=== PATIENT | male | born 1945 | race Caucasian/White ===

== ENCOUNTER 2022-02-09 16:10 | Emergency (ER) | payer MEDICARE, OTHER, SELFPAY ==
[2022-02-09 16:25] VITALS: BP 115/74; PULSE 106; RESP 22; TEMP 38.4; O2SAT 94; BMI 32.3
--- NOTE | 2022-02-09 17:06 | CRLHL7_ITS ---
For Patients: As a result of the Century Cures Act, medical imaging exams and procedure reports are released immediately into your electronic medical record. You may view this report before your referring provider. If you have questions, please contact your health care provider. INDICATION: PNA, CHEST PAIN TECHNIQUE: Chest 1 view. COMPARISON: 08/28/21 FINDINGS: Cardiovascular and mediastinum: Heart size and vasculature are normal in caliber and appearance. Mediastinum is within normal limits. Lungs and pleural space: Lungs are clear. No sign of infiltrate or mass. No sign of pleural effusion. No pneumothorax. Bones and soft tissues: No significant findings. IMPRESSION: Unremarkable chest. Dictated by: Bethel Yang MD @ 02/09/2022 17:48:06 (Electronically Signed)
[2022-02-09 17:07] VITALS: TEMP 36.6
--- NOTE | 2022-02-09 17:08 | ED.GENADULT ---
HPI - General Adult General Time Seen by Provider: 17:09 Date Seen: 02/09/22 Chief complaint: Weakness Stated complaint: Weakness and muscle tightness Time Seen by Provider: 02/09/22 16:35 Source: patient Mode of arrival: ambulatory History of Present Illness HPI narrative: Rai is a 76-year-old male past medical history includes hypertension presents emerged department with with generalized weakness. Patient states over the last few days he has had increasing worsening cough, shortness of breath and weakness, he has had increased myalgias and arthralgias, denies any headache. Cough has been productive yellow tinged sputum, he has had associated fevers at started today, states that she was exposed to a co-worker with COVID last , she tested negative on Monday. Patient has not had a COVID test at this time. He is vaccinated against covid. He has associated nausea but no vomiting, he denies any chest pain or abdominal pain, he has had decreased urinary output. Patient has not had much for oral intake, only crackers today, he feels very unsteady on his feet like he is going to fall over, he denies any recent falls. Feels very shaky. Of note, patient does drink about 6 beers per day and a few glasses of wine. Patient had 2 beers yesterday. He did have some alcohol withdrawals post surgery in the past, no history of any alcohol withdrawal seizures. Due to worsening symptoms he presents emerged department. Related Data Previous Rx's Medication Instructions Recorded doxycycline monohydrate 100 mg 100 mg PO BID 10 days #20 caps 02/09/22 capsule prednisone 20 mg tablet 40 mg PO DAILY 4 days #8 tabs 02/09/22 Review of Systems Status of ROS: Reports: 10 or more systems reviewed and unremarkable except as noted in History and below [facility] Social History Smoking Status: Former smoker How often do you have a drink containing alcohol: 4 or more times a week How many standard drinks containing alcohol do you have on a typical day: 3 or 4 How often do you have six or more drinks on one occasion: Never AUDIT-C Alcohol total score: 5 Non-prescribed substance use: denies use Exam Narrative: Exam Narrative: General: No obvious distress sitting comfortably, nontoxic in appearance HEENT: Oropharynx is clear and moist, pupils equal round reactive to light, extraocular muscles intact Neck: No JVD, supple, full range of motion Lungs: Diminished breath sounds throughout, mild expiratory wheezes, mild bibasilar crackles Heart: Sinus tachycardia Abdomen: Soft nontender, obese, bowel sounds present Muscle skeletal: +5 strength upper lower extremities Neuro: Unable to evaluate gait, GCS 15, alert awake and oriented x3 Const: Vital Signs, click to edit/add: Vital Signs - 24 hr 02/09/22 16:25 Temperature 101.1 F H Pulse Rate [Pulse Oximeter] 106 H Respiratory Rate 22 Blood Pressure [Le ft Upper Arm] 115/74 Pulse Oximetry 94 Oxygen Delivery Me thod Room Air Course Course Hospital Course: 5:00 pm: AIDET performed, vitals show tachycardia 106 as well as fever 101. Workup will include IV peripheral, 0.9 normal saline bolus, patient does not have history of heart failure, will obtain a CBC, procalcitonin, CMP, lactate and blood cultures x2, XR chest portable one view, suspect pneumonia versus COVID. He will get a DuoNeb and 10 mg IV Decadron. Reevaluation(s) Reevaluation #1: Patient is feeling better after above care given, still has tremors, vitals have been stable, imaging showed no acute cardiopulmonary process, SARs/influenza/RSV were negative, CBC showed a leukocytosis of 11.38, hemoglobin 11.5, sodium mildly low at 130, AST mildly elevated, likely secondary to his EtOH use, NT proBNP elevated at 37 40, patient has no history of any heart failure, likely need echocardiogram an outpatient basis, procalcitonin 0.63, plan to give him 5 mg IV Valium for his tremors. Time: 19:49 Vital Signs Vital signs: Initial Vital Signs Temperature 101.1 F H 02/09/22 16:25 Temperature Source Temporal Artery Scan 02/09/22 16:25 Pulse Rate 106 H 02/09/22 16:25 Respiratory Rate 22 02/09/22 16:25 Blood Pressure 115/74 02/09/22 16:25 Blood Pressure Mean 87 02/09/22 16:25 Blood Pressure Position Sitting 02/09/22 16:25 Pulse Oximetry 94 02/09/22 16:25 Oxygen Delivery Method 02/09/22 16:25 Vital Signs Temperature 101.1 F H 02/09/22 16:25 Pulse Rate 106 H 02/09/22 16:25 Respiratory Rate 22 02/09/22 16:25 Blood Pressure 115/74 02/09/22 16:25 Pulse Oximetry 94 02/09/22 16:25 Oxygen Delivery Method 02/09/22 16:25 Temperature 98 F 02/09/22 17:07 Pulse Rate 92 02/09/22 21:00 Respiratory Rate 16 02/09/22 21:00 Blood Pressure 177/86 H 02/09/22 21:00 Pulse Oximetry 95 02/09/22 21:00 Oxygen Delivery Method 02/09/22 21:00 Medical Decision Making Lab Data Labs: Lab Results 02/09/22 02/09/22 02/09/22 Range/Units 16:52 17:34 17:34 WBC 11.38 H (4.50-11.00) K/uL RBC 3.51 L (4.30-5.90) m/uL Hgb 11.5 L (13.5-17.5) gm/dL Hct 33.7 L (37.0-53.0) % MCV 96 (80-100) fL MCH 33 (26-34) pg MCHC 34 (32-36) gm/dL RDW Coeff of Eloy 12.7 (11.5-15.5) % Plt Count 151 (140-440) K/uL Neut % (Auto) 89.8 H (42.0-72.0) % Lymph % (Auto) 3.3 L (20-44) % Bosque % (Auto) 6.2 (0.0-11.0) % Eos % (Auto) 0.0 (0.0-7.0) % Baso % (Auto) 0.1 (0.0-3.0) % Neut # (Auto) 10.20 H (1.7-7.0) K/uL Lymph # (Auto) 0.40 L (0.90-2.90) K/uL Bosque # (Auto) 0.70 (0.00-0.90) K/UL Eos # (Auto) 0.00 (0.00-0.50) K/uL Baso # (Auto) 0.00 (0.00-0.30) K/uL Abs Immat Gran (auto) 0.07 (0.00-0.30) K/uL Sodium 128 L (135-149) mmol/L Potassium 4.8 (3.6-5.1) mmol/L Chloride 95 L (96-114) mmol/L Carbon Dioxide 23 (20-32) mmol/L BUN 24 (7-30) mg/dL Creatinine 1.2 (0.5-1.5) mg/dL Estimated Creat Clear 55.76 Estimated GFR 63 ml/min Glucose 98 (60-115) mg/dL Lactate (0.5-1.9) mmol/L Calcium 9.4 (8.4-10.6) mg/dL Total Bilirubin 0.8 (0.1-1.5) mg/dL AST 48 H (12-35) U/L ALT 35 (4-50) U/L Alkaline Phosphatase 103 (40-150) U/L NT-Pro-B Natriuret Pep 3740 H (0-125) PG/mL Total Protein 8.0 (6.0-8.3) g/dL Albumin 4.9 (3.3-5.0) g/dL Procalcitonin 0.63 H (<0.50) ng/mL SARS-CoV-2 (PCR) Negative SARS-CoV-2 (Negative) Influenza Type A (PCR) Negative PCR FLU A (Negative) Influenza Type B (PCR) Negative PCR FLU B (Negative) 02/09/22 Range/Units 17:34 WBC (4.50-11.00) K/uL RBC (4.30-5.90) m/uL Hgb (13.5-17.5) gm/dL Hct (37.0-53.0) % MCV (80-100) fL MCH (26-34) pg MCHC (32-36) gm/dL RDW Coeff of Eloy (11.5-15.5) % Plt Count (140-440) K/uL Neut % (Auto) (42.0-72.0) % Lymph % (Auto) (20-44) % Bosque % (Auto) (0.0-11.0) % Eos % (Auto) (0.0-7.0) % Baso % (Auto) (0.0-3.0) % Neut # (Auto) (1.7-7.0) K/uL Lymph # (Auto) (0.90-2.90) K/uL Bosque # (Auto) (0.00-0.90) K/UL Eos # (Auto) (0.00-0.50) K/uL Baso # (Auto) (0.00-0.30) K/uL Abs Immat Gran (auto) (0.00-0.30) K/uL Sodium (135-149) mmol/L Potassium (3.6-5.1) mmol/L Chloride (96-114) mmol/L Carbon Dioxide (20-32) mmol/L BUN (7-30) mg/dL Creatinine (0.5-1.5) mg/dL Estimated Creat Clear Estimated GFR ml/min Glucose (60-115) mg/dL Lactate 1.2 (0.5-1.9) mmol/L Calcium (8.4-10.6) mg/dL Total Bilirubin (0.1-1.5) mg/dL AST (12-35) U/L ALT (4-50) U/L Alkaline Phosphatase (40-150) U/L NT-Pro-B Natriuret Pep (0-125) PG/mL Total Protein (6.0-8.3) g/dL Albumin (3.3-5.0) g/dL Procalcitonin (<0.50) ng/mL SARS-CoV-2 (PCR) (Negative) Influenza Type A (PCR) (Negative) Influenza Type B (PCR) (Negative) Discharge Plan Discharge Clinical Impression: History of alcohol use, Fever, Generalized weakness, Cough Patient Disposition: Home, Self-Care Condition: Improved Instructions: Fever in Adults (ED), Acute Cough (ED) Additional Instructions: To take doxycycline 100 mg twice daily over the next 7 days, to continue 40 mg oral prednisone once daily over the next 4 days, to continue with his albuterol inhaler 1-2 puffs every 4-6 hours as needed for cough, to follow-up primary care provider over the next 3-5 days for ER followup and recheck, consideration for outpatient echocardiogram. Activity Level: Activity as Tolerated Prescriptions: New doxycycline monohydrate 100 mg capsule 100 mg PO BID 10 Days Qty: 20 0RF prednisone 20 mg tablet 40 mg PO DAILY 4 Days Qty: 8 0RF Follow Up/Referrals: Rai Rosas MD [Primary Care Provider] - Stand Alone Forms: [employer] Info Instructions
--- OUTSIDE RECORDS SUMMARY | 2022-02-09 17:50 | XMS_ITS | Clinical Summary ---
:1945 Author Organization [employer] [facility] Aff[facility] [place] [address] Care Team Providers Name Role Phone Rai Rosas MD Primary Care Provider [phone] Allergies Active Allergy Reactions Severity Noted Date Comments Amlodipine Edema 07/16/2008 Hydrochlorothiazide Nausea Only 07/28/2021 Nausea a nd diarrhea Lisinopril Cough 06/26/2008 Spironolactone Other - Describe In 08/11/2021 Sodium 126, potassium Comment Field 5.3 Medications Medication Sig Dispensed Refills Start Date End Date Status triamcinolone Apply 453 g 0 04/06/2018 Activ e (ARISTOCORT) 0.1 % topically to ointmentIndications: affected Rash area(s) 3 times daily. triamcinolone Apply 85.2 g 1 07/24/2019 Activ e (ARISTOCORT; topically to KENALOG) 0.1 % affected creamIndications: area(s) 2 Rash times daily if needed for Other (Specify). Not to exceed 14 days per episode albuterol HFA Inhale 1-2 1 Each 3 03/31/2020 Acti ve (PRO-AIR) 90 Puffs by mouth mcg/actuation every 4 hours inhalerIndications: if needed. Tobacco abuse fluticasone (50 mcg Inhale 2 1 Bottle 12 10/15/2020 Active per actuation) nasal Sprays to both solution nostrils once (FLONASE)Indications daily. : Allergic rhinitis due to pollen, unspecified seasonality omeprazole Take 1 Capsule 90 capsule. 3 05/03/2021 A ctive (PRILOSEC) 40 mg (40 mg) by Delayed-Release mouth once capsuleIndications: daily before a Chronic GERD meal. cyclobenzaprine Take 1 Tablet 30 Tablet 1 05/03/2021 Active (FLEXERIL) 10 mg (10 mg) by tabletIndications: mouth 2 times Mechanical back pain daily if needed for Muscle Spasm. umeclidinium Inhale 1 Puff 30 Each 12 05/03/2021 Ac tive (Incruse Ellipta) by mouth once 62.5 mcg/actuation daily. Discard inhalerIndications: inhaler 6 Chronic cough weeks after opening or when the counter reads '0' (after all blisters have been used), whichever comes first. fluorouracil 5% APPLY TO THE 0 06/08/2021 Active topical (EFUDEX) 5 % AFFECTED AREA cream ON SCALP TWICE DAILY FOR 2-3 WEEKS hydrocortisone 2.5% APPLY TO THE 0 05/17/2021 Active cream AFFECTED AREA 1-2 TIMES DAILY FOR UP TO 2 WEEKS/MONTH nicotine 21 mg/24 hr APPLY 1 PATCH 14 Patch 3 07/12/2021 Active (NICODERM; HABITROL) TO DRY, CLEAN, 21 mg/24 hr HAIRLESS SKIN patchIndications: ONCE DAILY. Tobacco abuse montelukast TAKE 1 90 Tablet 2 01/28/2022 Active (SINGULAIR) 10 mg TABLET(10 MG) tabletIndications: BY MOUTH EVERY Chronic sinusitis, DAY unspecified location losartan (COZAAR) TAKE 1 90 Tablet 0 01/28/2022 A ctive 100 mg TABLET(100 MG) tabletIndications: BY MOUTH EVERY Benign essential HTN DAY atorvastatin TAKE 1 90 Tablet 2 01/30/2022 Active (LIPITOR) 40 mg TABLET(40 MG) tabletIndications: BY MOUTH EVERY Mixed hyperlipidemia DAY labetaloL (TRANDATE) TAKE 1 180 Tablet 0 02/06/2022 Active 200 mg TABLET(200 MG) tabletIndications: BY MOUTH TWICE Ascending aortic DAILY aneurysm, Hypertension, unspecified type atorvastatin Take 1 Tablet 90 tablet. 3 05/03/2021 01/31/20 D iscontinued (LIPITOR) 40 mg (40 mg) by 22 tabletIndications: mouth once Mixed hyperlipidemia daily. losartan (COZAAR) Take 1 Tablet 90 Tablet 3 05/03/2021 0 Discontinued 100 mg (100 mg) by 22 tabletIndications: mouth once Benign essential HTN daily. montelukast Take 1 Tablet 90 Tablet 3 05/03/2021 01/29/20 Dis continued (SINGULAIR) 10 mg (10 mg) by 22 tabletIndications: mouth once Chronic sinusitis, daily. unspecified location labetaloL (TRANDATE) TAKE 1 180 Tablet 0 10/31/2021 0 Discontinued 200 mg TABLET(200 MG) 22 tabletIndications: BY MOUTH TWICE Ascending aortic DAILY aneurysm, Hypertension, unspecified type Active Problems Problem Noted Date Hyperlipidemia, unspecified 12/16/2016 Erectile dysfunction 04/29/2015 Ventral hernia 07/30/2012 Impaired fasting glucose 06/23/2012 Benign neoplasm of colon 03/27/2009 Overview: Colonoscopy 03/2009 polyps repeat in 5 y ears Colonoscopy 05/2014 polyp repeat in 5 yea rs Colonoscopy 11/2020 normal biopsies, repe at in 7 years Ingrowing nail 07/22/2008 AMANDA 04/14/2008 AHI- 28 04/21/2008 Spinal stenosis in cervical region 07/02/2007 Spinal stenosis, unspecified region other than cervica l 06/19/2007 Obesity, unspecified Unspecified essential hypertension Esophageal reflux James's esophagus Overview: EGD 05/2008 James's esophagus, repeat E GD in 3 years EGD 08/2012 James's esophagus, repeat E GD in 3 years EGD 08/2015 James's esophagus, repeat E GD in 3 years EGD 11/2018 James's, repeat EGD in 3 ye ars EGD 12/2021 James's, repeat EGD in 3 ye ars Tobacco use disorder Chronic cough Overview: Saw Pulm 01/2017. PFT's no obstruction. N o copd. Attributed to pnd, amanda. 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(V02.59) James's esophagus 07/02/2007 06/05/2009 Other postoperative infection 07/02/2007 01/02/2019 Overview: Cervical wound Chronic obstructive asthma with exacerbation 01/02/2019 Other and unspecified hyperlipidemia Encounters Date Type Specialty Care Team Description 02/09/2022 Nurse Triage Rai Rosas Fatigue MD [place] 02/08/2022 Travel 02/05/2022 Refill Rai Rosas Refill Requ ora Burgos MD (Labetalol) 01/28/2022 Refill Rai Rosas Refill Requ ora Burgos MD (Atorvastatin) 01/27/2022 Refill Rai Rosasill Requ ora Burgos MD (Montelukast, L osartan) 01/24/2022 Nurse/Clinic Staff Immunizat ion/Injection Only (COVID-19 vacci ne) 01/24/2022 Travel 01/20/2022 Travel 01/17/2022 Nurse/Clinic Staff Flu Shot; Only Immunization/In jection 01/17/2022 Travel 01/14/2022 Travel 12/21/2021 Procedure Only Dillon Ibrahim Procedure (E JENNIFER - MD [place] history of [place] ett's) 12/21/2021 Travel 12/18/2021 Travel 12/17/2021 Nurse/Clinic Staff Testing ( Pre-procedure Only COVID test) 12/17/2021 Travel 12/16/2021 Telephone Dillon Ibrahim yes answers MD [place] 12/15/2021 Telephone Rai Rosas Referral (S cheduling) MD [place] 12/14/2021 Telephone Rai Rosas Referral (E ndoscopy) MD [place] 12/07/2021 Ancillary Procedure 12/07/2021 Travel 11/30/2021 Ancillary Procedure 11/30/2021 Office Visit Rai Rosas Neck Pain/p vaibhav Burgos MD (Radiates into shoulder, finge r tips on bilateral stewart nd go numb - left is worse); Foot Problem (B ilateral foot numbness); Diarrhea (Has h appened 2 times over e last 3 months, Bloatin g and gassy) 11/30/2021 Travel from Last 3 Months Immunizations Name Administration Dates Next Due AMB INFLUENZA IIV3 (AGE 65+ YRS) PF 02/15/2019 (Flu Clinic Only) AMB Influenza, IIV3 (Age >=3 02/08/2013, 03/04/2011 years)(Flu Clinic Only) Amb Influenza, Inact (High-dose) (Flu 01/30/2014 Clinic Only) Amb Influenza, Inactivated AIIV4 (Age 0901/29/2020 65+ Years) Preserv Free COVID-19 vaccine ([employer] 01/24/2022 30mcg/0.3mL) 12YO+ BIVALENT BOOSTER PF, MDV COVID-19 vaccine ([employer] 08/16/2021 30mcg/0.3mL) PF, MDV Influenza A (H1N1), Inactivated (Age 1205/05/2009 >=3 Years) Influenza, High-dose Inactivated 02/01/2016, 02/06/2015 Influenza, IIV3 (Age 6-35 mos) 03/04/2011 Influenza, IIV3 (Age >=3 years) 02/29/2012, 03/05/2010, 01/07, 03/20/2007, 03/22/2006, 03/11/2005 Influenza, Inactivated AIIV4 (Age 65+ 01/17/2022, 02/11/2021 Years) Preserv Free Influenza, Inactivated IIV3 (Age 65+ 02/22/2018, 03/14/2017 Years) Preserv Free Pneumococcal Poly,23-Valent 02/01/2016, 06/23/2007 (Pneumovax) Pneumococcal conj 13-Valent (Prevnar 09/10/2014 13) Td (Age >=7 Years) 11/12/2004 Tdap 09/13/2013 Zoster (Shingrix-RZV, recombinant) 03/06/2019, 01/02/2019 Zoster (Zostavax-ZVL, live) 09/19/2014 Family History Medical History Relation Name Comments Cancer-colon Neg. 1 Cancer-prostate Neg. 2 Heart Disease Neg. 3 Diabetes Neg. 4 Anesthesia Problem No Family History Relation Name Status Comments Brother Alive Father CA Mother cardiac Neg. 1 Neg. 2 Neg. 3 Neg. 4 Sister Alive Social History Tobacco Use Types Packs/Day Years Used Date Current Every Day Smoker Cigarettes 0.5 53 Sta rted: 11/12/1967 Smokeless Tobacco: Never Used Tobacco Cessation: Ready to Quit: No; Co unseling Given: Yes Comments: 20+ pack year smoking history Alcohol Use Standard Drinks/Week Comments Yes 0 (1 standard drink = 0.6 oz pure alcoho l) 6 beers daily Alcohol Habits Answer Date Recorded How often do you have a drink containing 4 or more times a w [place] 08/31/2018 alcohol? How many drinks containing alcohol do you have 3 or 4 08/31/2018 on a typical day when you are drinking? How often do you have six or more drinks on one Less than mo nthly 08/31/2018 occasion? Comment: 6 beers daily 03/31/2020 Sex Assigned at Date Recorded Not on file COVID-19 Exposure Response Date Recorded In the last 10 days, have you been in contact with No / Unsu re 02/08/2022 9:19 AM CDT someone who was confirmed or suspected to have Coronavirus/COVID-19? Obstetrics History Last Filed Vital Signs Vital Sign Reading Time Taken Comments Blood Pressure 145/90 11/30/2021 10:59 AM CDT Pulse 68 11/30/2021 10:59 AM CDT Temperature 36.5 ??C (97.7 ??F) 06/17/2021 11:14 AM CONTACT CENTER ASSISTANT Respiratory Rate 22 06/17/2021 11:14 AM CONTACT CENTER ASSISTANT Oxygen Saturation 98% 11/30/2021 10:59 AM CDT Inhaled Oxygen Concentration - - Weight 101.9 kg (224 lb 9.6 oz) 11/30/2021 10:59 AM CDT Height 175.3 cm (5' 9) 06/29/2021 10:23 AM CONTACT CENTER ASSISTANT Body Mass Index 33.17 06/29/2021 10:23 AM CONTACT CENTER ASSISTANT Plan of Treatment Upcoming Encounters Date Type Specialty Care Team Description 02/10/2022 Nurse/Clinic Staff Only Health Maintenance Due Date Last Done Comments Depression screening for age 12+ 05/03/2022 05/03/2021, , 01/02/2019, Additional history exists Medicare Wellness for age 65+ 05/03/2022 05/03/2021, 2018, 01/01/2018, Additional history exists Low Dose CT (for lung CA) age 0105/14/2022 05/14/2021 50-80 BMI (ht and wt on same day) for 06/29/2022 06/29/2021, 06/08, age 18+ 05/03/2021, Additional history exists Tetanus booster 09/14/2023 09/13/2013, 11/12/2004 Lipids for age 45-75 05/03/2026 05/03/2021, 03/31/2020, 01/02/2019, Additional history exists Colonoscopy through age 75 11/19/2027 11/18/2020, , 11/18/2020, Additional history exists Tdap Completed 09/13/2013 Pneumococcal series for age 65+ Completed 02/01/2016, 10/2014, 06/23/2007 Hepatitis C screening for age Completed 12/16/2016 18-79 AAA screening age 55-77 Completed 04/02/2018, 08/15/2017, 01/04/2017 Zoster (shingles) series for age Completed 03/06/2019, , 50+ 09/19/2014 Influenza for age 65+ Completed 01/17/2022, 02/11/2021, 01/29/2020, Additional history exists COVID-19 vaccine series Completed 01/24/2022, 08/16/2021, 02/11/2021, Additional history exists Medical Devices Implanted Type Area Hospital Technician Device Shelf Model / Identifier Expiration Serial / Date Lot Plate Adaptation 1.5x90 20 Hole 446.10 - [id number] Left: DepGlobal Velocity 446.10# / Implanted: Qty: 3 on 06/13/2007 at [facility] [employer] / LOAD#[id number] Procedures Procedure Name Priority Date/Time Associated Comments Diagnosis PATH TISSUE EXAM Routine 12/21/2021 James's esophagus Resu lts for 11:38 AM CDT without dysplasi a this procedure Hiatal hernia are in the results section. ESOPHAGOGASTRODUODENOSCOPY Routine 12/21/2021 James's esop hagus 11:01 AM CDT without dysplasia ENDOSCOPY 12/21/2021 Results for 10:46 AM CDT this procedure are in the results section. COVID 19 Routine 12/17/2021 9:27 Encounter for Results for AM CDT pre-operative this procedure laboratory testing are in th e results section. COVID 19 COLLECTION Routine 12/17/2021 9:27 Encounter for Resu lts for AM CDT pre-operative this procedure laboratory testing are in e results section. MR SPINE CERVICAL WO [place]TON 12/07/2021 Cervical Results for 11:53 AM CDT radiculopathy this procedure are in the results section. XR SPINE CERVICAL 3 VIEWS Routine 11/30/2021 Neck pain Re sults for 11:58 AM CDT this procedure are in the results section. from Last 3 Months Results PATH TISSUE EXAM (12/21/2021 11:38 AM CDT) Component Value Ref Test Analysis Performed At [facility] gist Range Method Time Signature Case Report Pathology Report ?Case: [id number] ? 12/23/2021 [facility] Authorizing Provider: ??Dillon Paris MD ?? Collected: ? 12/21/2021 1138 ? 9:57 AM CDT [facility] Ordering Location: ? [facility] ?? Received: ?12/21/2021 1500 ? [facility] ? Clinic ? LABORATORY Pathologist: ? Romie Thompson MD ? Specimen: ?Distal Esopha thom Biopsy ? Final A) ESOPHAGUS, DISTAL, BIOPSY: 12/23/2021 [employer] Electronically Diagnosis 1. Specialized James's mucosa 9:57 AM CDT LABORATORY-CE signed by 2. Negative for dysplasia Romie Hare 3. Background of normal squamous esophageal mucosa LABORATORY MD Ivan on 12/23/2021 at 9:57 AM Clinical 76-year-old 12/23/2021 [employer] Information male with a 9:57 AM CDT LABORATORY-CE history of [facility] James's LABORATORY esophagus. EGD showed an irregular Z-line. Gross A) Received in formalin are 5 roberts mucosal fragments averaging 2 mm in greatest dimension, which are entirely submitted in one cassette. It is labeled with the patient's name and designated A. 12/23/2021 [employer] Description 9:57 AM CDT LABORATORY-CE Felisha Agustin 12/22/2021 8:50 AM [facility] LABORATORY Microscopic The final diagnosis is based on microscopic examination of appropriate sections of all specimens. 12/23/2021 [employer] Description 9:57 AM CDT LABORATORY-CE [facility] Additional 12/23/2021 [employer] Information Interpreted at [facility], [facility] Laboratory - [address], [place] [address] 9:57 AM CDT LABORATORY-CE [facility]ATORY Specimen (Source) Anatomical Collection Method Collection Time Re ceived Time Location / / Volume Laterality Other (Distal Non-Blood / 12/21/2021 11:38 12/21/2021 3:00 Esophagus Biopsy) Unknown AM CDT PM CDT Dillon Ibrahim MD PATHOLOGY/CYTOLOGY Performing Organization Address City/State/ZIP Code Phon e Number [employer] [address] [place] [address] LABORATORY-[facility]ENTRAL 2000 LABORATORY ENDOSCOPY (12/21/2021 10:46 AM CDT) Specimen (Source) Anatomical Collection Method Collection Time Re ceived Time Location / / Volume Laterality 12/21/2021 10:46 AM CDT Narrative This result has an attachment that is no t available. Transcriptions Dillon Ibrahim MD - 12/21/2021 11 :47 AM CDT Patient Name: Rai Rodriguez Procedure Date: 12/21/2021 Gender: Male Date of : 1945 Admit Type: Outpatient Procedure: Upper GI endoscopy Proceduralist: Dillon Ibrahim MD , Teresita wakefield (Nurse), Hanny Dorado (Nurse) Referring MD: Rai Rosas Indications/Pre-Op Diagnosis: Surveillan ce for malignancy due to personal history of James's esophagus Medications: Fentanyl 100 micrograms IV, Midazolam 4 mg IV, The level of sedation administered was moderate Procedure Description: Risk of bleeding, infection, perforatio n, need for surgery and alternatives discussed. The [id number] was introduced thr ough the mouth, and advanced to the third part of duodenum. The upper G I endoscopy was accomplished without difficulty. The patient tolerat ed the procedure well. Estimated Blood Loss & Specimen: Estimated blood loss: none. Findings: The examined esophagus was normal. Biop sies were taken with a cold forceps for histology. The Z-line was irregular and was found 40 cm from the incisors. A 2 cm hiatal hernia was present. A few small pedunculated polyps with no bleeding and no stigmata of recent bleeding were found in the gastr ic fundus. The gastric body and gastric antrum wer e normal. The examined duodenum was normal. Impressions/Post-Op Diagnosis: - Normal esophagus. Biopsied. - Z-line irregular, 40 cm from the inci sors. - 2 cm hiatal hernia. - A few gastric polyps. - Normal gastric body and antrum. - Normal examined duodenum. Recommendation: - Patient has a contact number availabl e for emergencies. The signs and symptoms of potential delayed complicat ions were discussed with the patient. Return to normal activities to dillon. Written discharge instructions were provided to the patie nt. - Resume previous diet. - Continue present medications. - Await pathology results. - Repeat upper endoscopy for surveillan ce based on pathology results. Moderate Sedation: Moderate (conscious) sedation was admin istered by the endoscopy nurse and supervised by the endoscopist. The following parameters were monitored: oxygen saturation, heart rat e, respiratory rate, blood pressure, adequacy of pulmonary ventila tion and reponse to care. Please refer to the patient's medical r ecord flowsheets and nursing notes for moderate sedation details. Total physician intraservice time was 1 0 minutes. Dillon Ibrahim MD 12/21/2021 11:47:39 AM This report has been signed electronical ly. Note Initiated On: 12/21/2021 10:46 AM Procedure Code(s): --- Professional --- 73634, Esophagogastroduodenoscopy, flex ible, transoral; with biopsy, single or multi ple Diagnosis Code(s): --- Professional --- K22.70, James's esophagus without dys plasia K22.89, Other specified disease of esop hagus K44.9, Diaphragmatic hernia without obs truction or gangrene K31.7, Polyp of stomach and duodenum CPT copyright 2020 [employer]. All rights reserved. The codes documented in this report are preliminary and upon manager data warehouse review may be revised to meet current compliance re quirements. Scope In: 11:36:02 AM Scope Out: 11:41:22 AM Dillon Ibrahim MD PROCEDURE ORD COVID 19 (12/17/2021 9:27 AM CDT) Analysis Performed At [facility] Time Signature COVID 19 Negative Negative 12/19/2021 [facility] 1:27 AM CDT LABORATORY-[facility] Comment: All PCR tests are subject to fa lse negative result due to variability in viral load and collection technique. A n egative result does not rule out a SARS-CoV-2 infection. Clinical correlation required . Specimen Anatomical Location / Collection Method Collection Jayce e Received Time (Source) Laterality / Volume Other SPECIMEN FROM Non-Blood / 12/17/2021 9:27 12/17/2021 5:14 NASOPHARYNGEAL Unknown AM CDT PM CDT STRUCTURE / Unknown Narrative [facility] LAB[facility] - 12/19/2021 1:27 AM CDT This test has been authorized by FDA und er an Emergency Use Authorization (EUA). This test is only authorized for the duration of time the declaration that circumstances exist justifying the authorization of th e emergency use of in vitro diagnostic tests for detection of SARS-CoV-2 virus and/or diagnosis of COVID-19 infection under section 564(b)(1) of the Act, 21 U.S.C. 360bbb-3(b)(1), unless the authorization is terminated or revoked sooner. Dillon Ibrahim MD MICROBIOLOGY Performing Organization Address City/[facility]/ZIP Code Phon e Number [facility] [address] [place] [address] [place] [address] LABORATORY-[place] [address] LABORATORY COVID 19 COLLECTION (12/17/2021 9:27 AM CDT) [facility] Method Time Signature TESTING [facility] 12/17/2021 [facility] LABORATORY Laboratory 5:15 PM CDT LABORATORY-CE [facility]ATORY Comment: Specimen submitted to [facility] for testing. Specimen Anatomical Location / Collection Method Collection Jayce e Received Time (Source) Laterality / Volume Other SPECIMEN FROM Non-Blood / 12/17/2021 9:27 12/17/2021 9:55 NASOPHARYNGEAL Unknown AM CDT AM CDT STRUCTURE / Unknown Dillon Ibrahim MD SEND OUTS Performing Organization Address City/[facility]/ZIP [facility] Phon e Number [facility] [address] [place] [address] LABORATORY-CEN[facility] 2000 LABORATORY MR SPINE CERVICAL WO (12/07/2021 11:53 AM CDT) Anatomical Region Laterality Modality Spine, CERVICAL SPINE Magnetic Resonance Specimen (Source) Anatomical Collection Method Collection Time Re ceived Time Location / / Volume Laterality 12/07/2021 4:04 PM CDT Impressions 12/07/2021 4:04 PM CDT 1. Artifact degrades image quality. 2. Multilevel cervical spondylosis witho ut spinal canal stenosis. Small bandlike signal abnormality within the left hemicord at C4-5 is compatible with myelomalacia. 3. Postsurgical changes of C3 through C7 laminoplasty. 4. Advanced neural foraminal stenosis on the right at C3-4, right C4-5, and left at C6-7. 5. Edema within the right articulating f acets at C5-6, likely representing a stress response. Dictated by Pranay Johnson MD @ 12/07/2021 4:04:06 PM (Electronically Signed) Narrative 12/07/2021 4:04 PM CDT For Patients: ??As a result of the Cures Act, medical imaging exams and procedure report s are released immediately into your [facility] medical record. ??You may view this report before your referring provider. ??If you have questions, please contact your health care provider. INDICATION: Neck pain. Loss of balance. TECHNIQUE: Multiplanar multisequence noncontrast MR images acquired through the cervical spine. COMPARISON: CT neck 08/22/2017. FINDINGS: Artifact degrades image quality. Postsurgical changes of C3 through C7 la minoplasty. Zfxj-yi-axyeuupm reversal of the cervical lordosis. No acute fracture. No concerning bone marrow signal abnormalities. Small bandlike T2 hyperintense the within the left hemicord at C4-5, co mpatible with myelomalacia. Edema within the right articulating facets at C5-6, likely representing a stress response. C2-3: Right facet joint ankylosis. No sp inal canal narrowing. Tiua-ac-uxegzfwi right without left neural foraminal narrowing. C3-4: Postsurgical changes of laminoplas ty. Broad-based posterior disc osteophyte complex. Right greater than left uncinate spurring. Advanced right and uwvs-yw-gzjnqxhd left facet arthropathy. No spina l canal narrowing. Moderately severe rig ht and qjai-zz-grhlqykf left neural foraminal narrowing. C4-5: Postsurgical changes of laminoplas ty. Mild retrolisthesis. Jrcg-sb-iakxlxoe disc height loss. Broad-based posterior disc osteophyte complex. Right greater left uncinate spurring. Hhsr-vm-okzclmuu facet arthropathy. No spinal canal narro wing. Moderately severe right without left neural foraminal narrowing. C5-6: Postsurgical changes of laminoplas ty. Shallow posterior disc osteophyte complex. Mild bilateral uncinate spurring and facet arthropathy. No spinal canal narrowing. Gors-ic-aeyxxlcd right without left neural foraminal narrowing. C6-7: Shallow posterior disc osteophyte complex. Bilateral uncinate spurring. Moderate facet arthropathy. No spinal canal narrowing. Ohnv-na-emxdonlz right and moderately severe left neural foraminal narrowing. C7-T1: Moderately advanced facet arthrop athy. No spinal canal narrowing. Jgan-wt-ldfsjnrq right and mild left neural foraminal narrowing. Procedure Note Pranay Johnson MD - 12/07/2021F ormatting of this note might be different from the original. For Patients: As a result of the ntury Cures Act, medical imaging exams and procedure reports are released immediately into your electronic medical record. You may view this report before your referring provider. If you have questions, please contact [facility] care provider. INDICATION: Neck pain. Loss of balance. TECHNIQUE: Multiplanar multisequence noncontrast MR images acquired through the cervical spine. COMPARISON: CT neck 08/22/2017. FINDINGS: Artifact degrades image quality. Postsurgical changes of C3 through C7 la minoplasty. Oavv-va-znlyfaeo reversal of the cervical lordosis. No acute fracture. No concerning bone marrow signal abnormalities. Small bandlike T2 hyperintense the within the left hemicord at C4-5, compatible with m yelomalacia. Edema within the right articulating facets at C5-6, likely representing a stress response. C2-3: Right facet joint ankylosis. No sp inal canal narrowing. Ibhk-zy-jdatehjh right without left neural foraminal narrowing. C3-4: Postsurgical changes of laminoplas ty. Broad-based posterior disc osteophyte complex. Right greater than left uncinate spurring. Advanced right and ptre-oe-hbgrthns left facet arthropathy. No spinal canal narrowing. Moderately severe right and m jse-ho-dakeaucv left neural foraminal narrowing. C4-5: Postsurgical changes of laminoplas ty. Mild retrolisthesis. Iyrm-wa-bgexnzqz disc height loss. Broad-based posterior disc osteophyte complex. Right greater left uncinate spurring. Lyja-ct-kqsaktzs facet arthropathy. No spinal canal narrowing. Moderately severe right without left neural foraminal narrowing. C5-6: Postsurgical changes of laminoplas ty. Shallow posterior disc osteophyte complex. Mild bilateral uncinate spurring and facet arthropathy. No spinal canal narrowing. Jgic-ue-ivxndxkw right without left neural foraminal narrowing. C6-7: Shallow posterior disc osteophyte complex. Bilateral uncinate spurring. Moderate facet arthropathy. No spinal canal narrowing. Zgzv-qp-entjeywh right and moderately severe left neural foraminal narrowing. C7-T1: Moderately advanced facet arthrop athy. No spinal canal narrowing. Lacq-pp-srabmzid right and mild left neural foraminal narrowing. IMPRESSION: 1. Artifact degrades image quality. 2. Multilevel cervical spondylosis witho ut spinal canal stenosis. Small bandlike signal abnormality within the left hemicord at C4-5 is compatible with myelomalacia. 3. Postsurgical changes of C3 through C7 laminoplasty. 4. Advanced neural foraminal stenosis on the right at C3-4, right C4-5, and left at C6-7. 5. Edema within the right articulating f acets at C5-6, likely representing a stress response. Dictated by Pranay Johnson MD @ 12/07/2021 4:04:06 PM (Electronically Signed) Rai Rosas MD MR XR SPINE CERVICAL 3 VIEWS (11/30/2021 11:58 AM CDT) Anatomical Region Laterality Modality CERVICAL SPINE Computed Radiography Specimen (Source) Anatomical Collection Method Collection Time Re ceived Time Location / / Volume Laterality 11/30/2021 2:03 PM CDT Narrative 11/30/2021 2:03 PM CDT For Patients: ??As a result of the 21st Century Cures Act, medical imaging exams and procedure report s are released immediately into your [facility] medical record. ??You may view this report before your referring provider. ??If you have questions, please contact your health care provider. Indication: Neck pain. Technique: Three views. Comparison: None. Findings/Impression: Hardware in the C3 through C7 posterior elements. No acute osseous abnormality. Multilevel degenerative disc and facet disease. No acute abnormality. No prevertebral soft tissue swelling. Reversal normal lordosis. Dictated by Barry Soria MD @ Nov 30 ??2:03PM (Electronically Signed) ?? Procedure Note Barry Soria MD - 11/30/2021Form atting of this note might be different from the original. For Patients: As a result of the ntury Cures Act, medical imaging exams and procedure reports are released immediately into your electronic medical record. You may view this report before your referring provider. If you have questions, please contact [facility] health care provider. Indication: Neck pain. Technique: Three views. Comparison: None. Findings/Impression: Hardware in the C3 through C7 posterior elements. No acute osseous abnormality. Multilevel degenerative disc and facet disease. No acute abnormality. No prevertebral soft tissue swelling. Reversal normal lordosis. Dictated by Barry Soria MD @ Nov 30 2:03PM (Electronically Signed) Rai Rosas MD GENERAL IMAGING from Last 3 Months Additional Health Concerns Infection Onset Date Last Indicated MRSAComment: in posterior neck incision 06-22-2007 06/22/2007 06/22/2007 Insurance Payer Benefit Plan / Subscriber ID Effective Dates Phone Addre ss Type Group [employer] T-Quad 22 [id number] 2020-Presen [address] [address] [place] [address] MEDICARE PART A MEDICARE PART A [id number] 2012-Present ATTN: CLAIMS - HB USE ONLY HB ONLY [address] [place] [address] MEDICARE PART B MEDICARE PART B [id number] 2020-Present ATTN: CLAIMS - HB USE ONLY HB ONLY [address] [place] [address] MEDICARE - PB MEDICARE PB [id number] 2020-Present ATT N: CLAIMS USE ONLY ONLY [address] [place] [address] [facility] [id number] 2020-Present [address] [place] [address] (Home) [place] [address] Rai Rodriguez [employer] Self [phone] (Home) [place] [phone] [place] ([place]) [place] [address] Advance Directives Documents on File Type Date Recorded 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 on Healthcare Directive 01/24/2018 10:16 AM [facility] RE DIRECTIVE, [facility], 01/19/18 Latest Code Status on File Code Status Date Activated Date Inactivated Comments Full Code 01/28/2008 3:22 PM 01/29/2008 4:06 PM Full Code 01/24/2008 3:32 PM 01/28/2008 3:22 PM Full Code 01/24/2008 9:14 AM 01/24/2008 3:32 PM Full Code 07/02/2007 1:20 PM 2007 10:09 PM Full Code 06/22/2007 11:16 AM 06/25/2007 6:48 PM Care Teams Sole Stainer Relationship Specialty Start Date End Date Rai Rosas MD PCP - General 08/26/[address] [facility] [id number]
[2022-02-09 18:05] LABS: Basophils Percent Auto 0.1 % (0.0-3.0); Hematocrit 33.7 % (37.0-53.0); Hemoglobin* 11.5 gm/dL (13.5-17.5); Immature Granulocytes Abs Auto 0.07 K/uL (0.00-0.30); Lactate* 1.2 mmol/L (0.5-1.9); Lymphocytes Percent Auto 3.3 % (20-44); Mean Corpuscular HGB Conc 34 gm/dL (32-36); Mean Corpuscular Hemoglobin 33 pg (26-34); Mean Corpuscular Volume 96 fL (80-100); Monocytes Percent Auto 6.2 % (0.0-11.0); Neutrophils Percent Auto 89.8 % (42.0-72.0); Platelet Count* 151 K/uL (140-440); RDW Coefficient of Variation % 12.7 % (11.5-15.5); Red Blood Count 3.51 m/uL (4.30-5.90); White Blood Count* 11.38 K/uL (4.50-11.00)
[2022-02-09 18:07] LABS: Slide Review Reflex No
[2022-02-09] MEDS: ACETAMINOPHEN 500 MG TABLET 1000 MG PO (18:14)
[2022-02-09] MEDS: IPRAT-ALBUT 0.5-2.5 MG/3 ML NEB 1 NEB IH (18:14)
[2022-02-09] MEDS: 0.9 % SODIUM CHLORIDE 1000 ml 1,000 ML IV (18:22)
[2022-02-09] MEDS: dexAMETHasone 10 MG/ML inj IVP (18:23)
[2022-02-09 18:33] LABS: Albumin* 4.9 g/dL (3.3-5.0); Chloride* 95 mmol/L (96-114); Sodium* 128 mmol/L (135-149)
[2022-02-09 18:34] LABS: Potassium* 4.8 mmol/L (3.6-5.1)
[2022-02-09 18:36] LABS: Alanine Aminotransferase* 35 U/L (4-50); Alkaline Phosphatase* 103 U/L (40-150); Aspartate Amino Transferase* 48 U/L (12-35); Bilirubin Total* 0.8 mg/dL (0.1-1.5); Blood Urea Nitrogen* 24 mg/dL (7-30); Carbon Dioxide* 23 mmol/L (20-32); Creatinine* 1.2 mg/dL (0.5-1.5); Est. Creatinine Clearance* 55.76; Estimated Glomerular Filt Rate 63 ml/min; Glucose* 98 mg/dL (60-115)
[2022-02-09 18:37] LABS: Calcium* 9.4 mg/dL (8.4-10.6)
[2022-02-09 18:43] LABS: NT Pro B Type NatriureticPept* 3740 PG/mL (0-125)
[2022-02-09 18:51] LABS: Procalcitonin* 0.63 ng/mL (<0.50)
[2022-02-09 18:56] LABS: PCR FLU A Negative PCR FLU A (Negative); PCR FLU B Negative PCR FLU B (Negative)
[2022-02-09 18:57] LABS: SARS PCR* Negative SARS-CoV-2 (Negative)
[2022-02-09] MEDS: diazePAM 5 MG/ML inj IV (19:50)
[2022-02-09 21:00] VITALS: BP 177/86; PULSE 92; RESP 16; O2SAT 95
== END 2022-02-09 21:23 | disposition home or self-care (01) ==
PROVIDERS: Emergency Provider Student in an Organized Health Care Education/Training Program; PCP Family Medicine
DX: R50.9 Fever, unspecified (principal); R05.9 Cough, unspecified
CPT/HCPCS: 36415; 71045; 80053; 83605; 83880; 84145; 85025; 87040; 87631; 94640; 96374; 96375; 99283; 99284; 99285; A9270; J1100; J3360; J7030

== ENCOUNTER 2022-03-22 11:30 | Outpatient (RCR) | payer MEDICARE, OTHER, SELFPAY ==
--- NOTE | 2022-01-19 08:14 | PT.OPEX ---
PT [facility] PT [facility] Outpatient Eval Start: 12/16/21 07:02 Freq: Status: Active Protocol: Document 12/16/21 10:45 YURIY (Rec: 12/16/21 10:53 YURIY [id number]) E-signed By Miranda Pablo PT Physical Therapy Outpatient Evaluation Insurance Information Recert Due Date 03/10/22 Insurance Name Medicare B Medical Diagnosis Neck Pain and Cervical Radiculopathy Treating Diagnosis Cervical Pain, UE N/T Reduced ease of ADL's Postural impairments Referring MD Dr Rai Rosas Subjective Subjective Jeferson reports having chronic neck pain for the past 15 years or so. He has had 3 CX surgeries (Laminectomies and MRSA infection) with the primary surgery being C3-C7 Laminectomy in 2007. 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 He typically manages pain with ibuprofen and rest. He does have a noted tremor, has been cleared for DX normally associated with a tremor ( Parkinson's, etc) My biggest c /o neck pain is severe with any attempt to lift even my arm weight up forward or out to the side. I fatigue quickly . I do have N/t into arms but I kind of get used to that. My head feels really heavy and it falls forward and then my balance is thrown off. I now walk with a cane. I get relief with sitting back in a chair (recliner or slumped) or lay down in bed. I have constant pain so I have not even been able to play golf. I ride in the golf cart. Due to risk of falling, I have not been able to perform in any of the Musicals either. Pain Comments Moderate to Severe neck pain. Constant Date of Last Physician Visit 11/30/21 Current Work Status Retired Preferred Name Jeferson Precautions Treatment Precautions/Contraindications 3 CX Surgeries with Laminectomy C3-C7, Carlos TKR, COPD, HTN Weight Bearing Status Full Weight Bearing Therapy Limitations/Systems Review Vision,Hearing Objective Range of Motion CX FF is WNL, EXT just to neutral. Rt 50%, Lt 75% Carlos shoulder AROM is grossly WFL Strength 5/5 carlos UE, but he fatiques quickly. He does not have a lifting restriction, but self restricts and gaurds depending on how he feels at the moment . Usually does not lift more than 7-10#. Nothing overhead Swelling Observed edema at supra- clavicular area carlos. Edema was noted on MRI Palpation Severe and global hypertonicity of CX soft tissue: sub-occipital, levator , scalenes, psps, UT, MT, rhomboid. Pect major/minor. SCOM is overstretched. Balance & Gait Not assessed, but he ambulates with a SE Cane Posture Severe forward head Assessment Assessment/Impression 76 yo pleasant male with DX of CX Pain and Radiculopathy. He presents with severe forward head and shoulder protraction. He has very limited CX AROM ( EXT just to neutral, Rt ROT 50 % of normal, Lt ROT 75% of normal, carlos SB near non- existent). Carlos UE are WFL and symmetric, and MMT of UE are WNL 5/5, but he has very poor endurance and fatigues quickly . Significant weakness in CX EXT - he cannot maintain head in proper alignment for more than 2 min, he has severe fatigue and his head drops forward, throwing his CoG off and body's mass outside of his midline orientation and he has difficulties walking. WBOS and shortened stride and shuffling gait. He will benefit from continued skilled physical therapy to address the above with proper stretch/ strength and endurance tasks. Plan of Care Rehabilitation Potential Good Physical Therapy Goals In 4-6 visits, Jeferson will be able to: 1. Maintain head on body neutral/erect position for a minimum of 2 min 5X/Day 2. Reduced UE N/T by reported 30% In 10-12 visits, Jeferson will be able to: 1. IND in entire HEP to self manage symptoms 2. Reduced CX pain by reported 50% to resume playing 9 holes of golf (trip planned in April with 9 college friends. 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
== END 2022-05-03 14:19 | disposition home or self-care (01) ==
PROVIDERS: PCP Family Medicine; Visit Provider Family Medicine
DX: M54.2 Cervicalgia (principal); Z51.89 Encounter for other specified aftercare
CPT/HCPCS: 97110; 97140; 97162

== ENCOUNTER 2022-04-06 15:09 | Observation (INO) | payer MEDICARE, OTHER, SELFPAY ==
[2022-04-06 15:19] VITALS: BP 124/71; PULSE 78; RESP 18; TEMP 36.5; O2SAT 99; BMI 33.7
--- OUTSIDE RECORDS SUMMARY | 2022-04-06 15:54 | XMS_ITS | Clinical Summary ---
:1945 Author Organization [facility] [place] [address] Care Team Providers Name Role Phone Rai Rosas MD Primary Care Provider [phone] Karena Wu PharmD Unavailable Allergies Active Allergy Reactions Severity Noted Date Comments Amlodipine Edema 07/16/2008 Hydrochlorothiazide Nausea Only 07/28/2021 Nausea a nd diarrhea Lisinopril Cough 06/26/2008 Spironolactone Other - Describe In 08/11/2021 Sodium 126, potassium Comment Field 5.3 Medications Medication Sig Dispensed Refills Start End Date Status Date triamcinolone Apply 453 g 0 Active (ARISTOCORT) 0.1 % topically to 8 ointmentIndications affected : Rash area(s) 3 times daily. cyclobenzaprine Take 1 Tablet 30 Tablet 1 Active (FLEXERIL) 10 mg (10 mg) by 1 tabletIndications: mouth 2 times Mechanical back daily if pain needed for Muscle Spasm. montelukast TAKE 1 90 Tablet 2 Active (SINGULAIR) 10 mg TABLET(10 MG) 2 tabletIndications: BY MOUTH Chronic sinusitis, EVERY DAY unspecified location losartan (COZAAR) TAKE 1 90 Tablet 0 Ac tive 100 mg TABLET(100 2 tabletIndications: MG) BY MOUTH Benign essential EVERY DAY HTN atorvastatin TAKE 1 90 Tablet 2 Active (LIPITOR) 40 mg TABLET(40 MG) 2 tabletIndications: BY MOUTH Mixed EVERY DAY hyperlipidemia labetaloL TAKE 1 180 Tablet 0 Active (TRANDATE) 200 mg TABLET(200 2 tabletIndications: MG) BY MOUTH Ascending aortic TWICE DAILY aneurysm, Hypertension, unspecified type albuterol HFA Inhale 1-2 1 Each 3 Activ e (PRO-AIR; VENTOLIN; Puffs by 2 PROVENTIL) 90 mouth every 4 mcg/actuation hours if inhalerIndications: needed for Tobacco abuse Shortness Of Breath. terbinafine HCL Take 1 Tablet 30 Tablet 0 06/13/19 Active (LAMISIL) 250 mg (250 mg) by 2 23 tabletIndications: mouth once Tinea pedis of both daily. feet omeprazole TAKE 1 90 Capsule 2 Active (PRILOSEC) 40 mg CAPSULE(40 2 Delayed-Release MG) BY MOUTH capsuleIndications: EVERY DAY Chronic GERD BEFORE A MEAL loratadine Take 1 Tablet 60 Tablet 5 Activ e (CLARITIN) 10 mg (10 mg) by 2 tablet mouth once daily. multivitamin (MVI) Take 1 Tablet 150 Tablet 3 Active tablet by mouth once 2 daily. povidone-iodine 10% Apply 0 Active (Betadine) 10 % topically to 2 external solution affected area(s) once daily. ketoconazole 2% APPLY 60 g 0 Acti ve topical (NIZORAL) TOPICALLY TO 2 creamIndications: AFFECTED Tinea pedis of both AREAS ONCE feet DAILY trimethoprim-sulfam Take 1 Tablet 14 Tablet 0 Active ethoxazole, 160-800 by mouth two 2 22 mg, (BACTRIM DS, times daily SEPTRA DS) for 7 days. tabIndications: Cellulitis of skin fluticasone (50 mcg Inhale 2 1 Bottle 12 03/18/20 Discontinued per actuation) Sprays to 1 22 (*Med nasal solution both nostrils c omplete/Regimen (FLONASE)Indication once daily. complete/Level s: Allergic of care change) rhinitis due to pollen, unspecified seasonality omeprazole Take 1 90 capsule. 3 03/18/20 Discont inued (PRILOSEC) 40 mg Capsule (40 1 22 Delayed-Release mg) by mouth capsuleIndications: once daily Chronic GERD before a meal. fluorouracil 5% APPLY TO THE 0 03/18/20 D iscontinued topical (EFUDEX) 5 AFFECTED AREA 2 22 (*Med % cream ON SCALP complete/R egimen TWICE DAILY complete /Level FOR 2-3 WEEKS of car e change) hydrocortisone 2.5% APPLY TO THE 0 0 Discontinued cream AFFECTED AREA 2 22 (*Med 1-2 TIMES complete/R egimen DAILY FOR UP complet e/Level TO 2 of care ch marcelo) WEEKS/MONTH nicotine 21 mg/24 APPLY 1 PATCH 14 Patch 3 03/18/20 Discontinued hr (NICODERM; TO DRY, 2 22 (*Med HABITROL) 21 mg/24 CLEAN, c omplete/Regimen hr HAIRLESS SKIN comple te/Level patchIndications: ONCE DAILY. of care change) Tobacco abuse cephalexin (KEFLEX) Take 1 28 Capsule 0 03/07/20 500 mg Capsule (500 2 22 capsuleIndications: mg) by mouth Cellulitis of skin four times daily for 7 days. triamcinolone Apply 45 g 1 03/18/20 Discon tinued (ARISTOCORT; topically to 2 22 (*Me d KENALOG) 0.1 % affected compl ete/Regimen creamIndications: area(s) 2 co mplete/Level Rash times daily of care change) if needed (eczema). Not to exceed 14 days per episode ketoconazole 2% Apply 15 g 0 03/30/20 Disc ontinued topical (NIZORAL) topically to 2 22 creamIndications: affected Tinea pedis of both area(s) once feet daily. Active Problems Problem Noted Date Status post total knee replacement, left 03/25/2022 Hyperlipidemia, unspecified 12/16/2016 Erectile dysfunction 04/29/2015 Ventral [...] Encounters Date Type Specialty Care Team Description 04/01/2022 Office Visit Rolando Blanco, DO Leg Pain/pr oblem (Follow up left leg, seems to be wor se.) 04/01/2022 Travel 03/28/2022 Refill Tay Palacio Refill Req uest R, DPM (Ketoconazole 2 % Topical) 03/27/2022 Travel 03/25/2022 Office Visit Rolando Blanco, DO Leg Pain/pr oblem (LEFT lower leg - alonso lulitis - wants to see if more care is needed because he is leaving a fter thanksgiving to [place] - wonders if more blood work or medicat ion is needed prior to leaving - over all feel s okay but is very fat igued ); Foot Pain/probl em (LEFT foot ) 03/24/2022 Travel 03/18/2022 Pharmacist Medication Karena Wu, Ph armacist Medication Management PharmD Management ([facility] inial - insurance refer ral ) 03/18/2022 Travel 03/17/2022 Refill Rai Rosas Refill Requ est MD Loretta (Omeprazole) 03/15/2022 Office Visit Tay Palacio Consult (B ilateral foot R, DPM ) 03/15/2022 Travel 03/07/2022 Office Visit Rai Rosas Follow Up ( Lower left MD Loretta leg) 03/07/2022 Travel 02/25/2022 Office Visit Rai Rosas Follow Up ( Lower left MD Loretta leg) 02/25/2022 Travel 02/23/2022 Office Visit Rai Rosas Follow Up ( Lower left MD Loretta leg) 02/23/2022 Travel 02/21/2022 Office Visit Rai Rosas Follow Up ( Lower left MD Loretta leg) 02/21/2022 Travel 02/19/2022 Travel 02/18/2022 Office Visit Rai Rosas Follow Up ( Lower left MD Loretta leg redness) 02/18/2022 Travel 02/16/2022 Ancillary Procedure 02/16/2022 Office Visit Rai Rosas [facility] F/ U MD Loretta ([place] [facility], , weakn ess, fever); Leg Pain/problem (L ower left leg rednes s, started 3 days ago); Toe Pain/proble m (Third toe on right fo ot, black on end, t oenail has changed) 02/16/2022 Travel 02/11/2022 Travel 02/10/2022 Nurse/Clinic Staff Blood Pre ssure Only 02/10/2022 Travel 02/09/2022 Orders Only Scanner <No scans attac hed> 02/09/2022 Orders Only Scanner <No scans attac hed> 02/09/2022 Nurse Triage Rai Rosas MD 02/08/2022 Travel 02/05/2022 Refill Rai Rosas Refmatry Requ ora Burgos MD (Labetalol) 01/28/2022 Refill Rai Rosas Requ ora Burgos MD (Atorvastatin) 01/27/2022 Refill Rai Rosas Requ ora Burgos MD (Montelukast, L osartan) 01/24/2022 Nurse/Clinic Staff Immunizat ion/Injection Only (COVID-19 vacci ne) 01/24/2022 Travel 01/20/2022 Travel 01/17/2022 Nurse/Clinic Staff Flu Shot; Only Immunization/In jection 01/17/2022 Travel 01/14/2022 Travel from Last 3 Months Immunizations Name Administration Dates Next Due AMB INFLUENZA IIV3 (AGE 65+ YRS) PF 02/15/2019 (Flu Clinic Only) AMB Influenza, IIV3 (Age >=3 02/08/2013, 03/04/2011 years)(Flu Clinic Only) Amb Influenza, Inact (High-dose) (Flu 01/30/2014 Clinic Only) Amb Influenza, Inactivated AIIV4 (Age 0901/29/2020 65+ Years) Preserv Free COVID-19 vaccine (Collabspot 01/24/2022 30mcg/0.3mL) 12YO+ BIVALENT BOOSTER PF, MDV COVID-19 vaccine (Collabspot 08/16/2021 30mcg/0.3mL) PF, MDV Influenza A (H1N1), [...] drink = 0.6 oz pure alcoho l) 3 to 4 beers daily Alcohol Habits Answer Date Recorded How often do you have a drink containing 4 or more times a w false pass 08/31/2018 alcohol? How many drinks containing alcohol do you have 3 or 4 08/31/2018 on a typical day when you are drinking? How often do you have six or more drinks on one Less than mo nthly 08/31/2018 occasion? 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 Obstetrics History Last Filed Vital Signs Vital Sign Reading Time Taken Comments Blood Pressure 151/81 04/01/2022 2:02 PM ROLLER MACHINE OPERATOR Pulse 84 04/01/2022 2:02 PM ROLLER MACHINE OPERATOR Temperature 36.5 ??C (97.7 ??F) 06/17/2021 11:14 AM ROLLER MACHINE OPERATOR Respiratory Rate 22 06/17/2021 11:14 AM ROLLER MACHINE OPERATOR Oxygen Saturation 99% 04/01/2022 2:02 PM ROLLER MACHINE OPERATOR Inhaled Oxygen Concentration - - Weight 104.9 kg (231 lb 3.2 oz) 04/01/2022 2:02 PM ROLLER MACHINE OPERATOR Height 175.3 cm (5' 9) 04/01/2022 2:02 PM ROLLER MACHINE OPERATOR Body Mass Index 34.14 04/01/2022 2:02 PM ROLLER MACHINE OPERATOR Plan of Treatment Upcoming Encounters Date Type Specialty Care Team Description 04/11/2022 Orders Only 04/19/2022 Office Visit Mack Brown, DPM [id number] [place], [place] [phone] (Wo rk) Health Maintenance Due Date Last Done Comments Depression screening for age 12+ 05/03/2022 05/03/2021, , 01/02/2019, Additional history exists Medicare Wellness for age 65+ 05/03/2022 05/03/2021, 2018, 01/01/2018, Additional history exists Low Dose CT (for lung CA) age 0105/14/2022 05/14/2021 50-80 BMI (ht and wt on same day) for 04/01/2023 04/01/2022, 06/09, age 18+ 06/17/2021, Additional history exists Tetanus booster 09/14/2023 09/13/2013, 11/12/2004 Lipids for age 45-75 05/03/2026 05/03/2021, 03/31/2020, 01/02/2019, Additional history exists Colonoscopy through age 75 11/19/2027 11/18/2020, , 11/18/2020, Additional history exists Tdap Completed 09/13/2013 Pneumococcal series for age 65+ Completed 02/01/2016, 0510/2014, 06/23/2007 Hepatitis C screening for age Completed 12/16/2016 18-79 AAA screening age 55-77 Completed 04/02/2018, 08/15/2017, 01/04/2017 Zoster (shingles) series for age Completed 03/06/2019, , 50+ 09/19/2014 Influenza for age 65+ Completed 01/17/2022, 02/11/2021, 01/29/2020, Additional history exists COVID-19 vaccine series Completed 01/24/2022, 08/16/2021, 02/11/2021, Additional history exists Medical Devices Implanted Type Area Radio Installer Automobile Device Shelf Model / Identifier Expiration Serial / Date Lot Plate Adaptation 1.5x90 20 Hole 446.10 - [id number] Left: [employer] 446.10# / Implanted: Qty: 3 on 06/13/2007 at [facility] [employer] / LOAD#[id number] Procedures Procedure Name Priority Date/Time Associated Comments Diagnosis CBC WITH AUTO Routine 03/25/2022 10:02 Cellulitis of skin Resu lts for this DIFFERENTIAL AM ROLLER MACHINE OPERATOR procedure are i n the results section. C-REACTIVE PROTEIN Routine 03/25/2022 10:02 Cellulitis of skin Results for this AM ROLLER MACHINE OPERATOR procedure are i n the results section. CBC WITH AUTO Routine 03/25/2022 10:02 Cellulitis of skin Resu lts for this DIFFERENTIAL AM ROLLER MACHINE OPERATOR procedure are i n the results section. US VENOUS LOWER STAT 02/16/2022 3:17 PM Left leg swelling R esults for this EXTREMITY LEFT CDT procedure are in the results section. SCAN-LABORATORY 02/09/2022 12:00 Results for this REPORT AM CDT procedure are i n the results section. SCAN-RADIOLOGY REPORT 02/09/2022 12:00 Re sults for this AM CDT procedure are i n the results section. from Last 3 Months Results (ABNORMAL) CBC WITH AUTO DIFFERENTIAL (03/25/2022 10:02 AM ROLLER MACHINE OPERATOR) [facility] Method Time Signature WHITE BLOOD 5.7 4.5 - 03/25/2022 [facility] COUNT 11.0 10:08 AM [facility] CLINIC mm RED BLOOD COUNT 3.23 (L) 4.30 - 03/25/2022 [facility] 5.90 10:[address] [facility]/ mm CLINIC HEMOGLOBIN 10.7 (L) 13.5 - 03/[facility]20[facility] 17.5 g/dL 10:08 AM [facility] HEMATOCRIT 30.7 (L) 37.0 - 03/25/2022 [facility] 53.0 % 10:08 AM [facility] MCV 95 80 - 100 03/25/2022 [facility] fL 10:08 AM [facility] MCH 33.1 26.0 - 03/25/2022 [facility] 34.0 pg 10:08 AM [facility] MCHC 34.9 32.0 - 03/25/2022 [facility] 36.0 g/dL 10:08 AM [facility] RDW 12.7 11.5 - 03/25/2022 [facility] 15.5 % 10:08 AM [facility] PLATELET COUNT 221 140 - 440 03/25/2022 [facility] thou/cu 10:08 AM [facility] MPV 8.0 6.5 - 03/25/2022 [facility] 11.0 fL 10:08 AM [facility] % NEUT 59.0 % 03/25/2022 [facility] 10:08 AM [facility] % LYMPH 26.0 % 03/25/2022 [facility] 10:08 AM [facility] % MONO 12.4 % 03/25/2022 [facility] 10:08 AM [facility] % EOS 2.3 % 03/25/2022 [facility] 10:08 AM [facility] % BASO 0.3 % 03/25/2022 [facility] 10:08 AM [facility] ABSOLUTE 3.4 1.7 - 7.0 03/25/2022 [facility] NEUTROPHILS thou/cu 10:08 AM [facility] ABSOLUTE 1.5 0.9 - 2.9 03/25/2022 [facility] LYMPHOCYTES thou/cu 10:08 AM [facility] ABSOLUTE 0.7 <0.9 03/25/2022 [facility] MONOCYTES thou/cu 10:08 AM [facility] ABSOLUTE 0.1 <0.5 03/25/2022 [facility] EOSINOPHILS thou/cu 10:08 AM [facility] ABSOLUTE 0.0 <0.3 03/25/2022 [facility] BASOPHILS thou/cu 10:08 AM [facility] Specimen Anatomical Collection Method / Collection Time Recei katheryn Time (Source) Location / Volume Laterality Blood BLOOD SPECIMEN / Venipuncture / 03/25/2022 10:02 03/25 Unknown Unknown AM ROLLER MACHINE OPERATOR 10:03 AM ROLLER MACHINE OPERATOR Neelai Bella DO HEMATOLOGY Performing Organization Address City/State/ZIP Code Phon e Number [facility] [address] [place] [address] C-REACTIVE PROTEIN (03/25/2022 10:02 AM ROLLER MACHINE OPERATOR) P athologist Signature C-REACTIVE 0.23 <0.50 03/27/2022 [facility] PROTEIN mg/dL 1:29 PM ROLLER MACHINE OPERATOR [facility] Specimen Anatomical Collection Method / Collection Time Recei katheryn Time (Source) Location / Volume Laterality Blood BLOOD SPECIMEN / Venipuncture / 03/25/2022 10:02 03/25 Unknown Unknown AM ROLLER MACHINE OPERATOR 10:03 AM ROLLER MACHINE OPERATOR Neelai Bella DO CHEMISTRY Performing Organization Address City/State/ZIP Code Phon e Number [facility] [address] [place] [address] LABORATORY-[facility]EN[facility] [address] LABORATORY US VENOUS LOWER EXTREMITY LEFT (02/16/2022 3:17 PM CDT) Anatomical Region Laterality Modality LEGS, LEG L, Abdomen Ultrasound Specimen (Source) Anatomical Collection Method Collection Time Re ceived Time Location / / Volume Laterality 02/16/2022 3:23 PM CDT Impressions 02/16/2022 3:23 PM CDT Normal venous ultrasound exam. No evidence of deep vein thrombosis within the left lower extremity. Dictated by Bethel Flynn MD @ Feb 16 2 022 ??3:23PM (Electronically Signed) ?? Narrative 02/16/2022 3:23 PM CDT For Patients: ??As a result of the Cures Act, medical imaging exams and procedure report s are released immediately into your [facility] medical record. ??You may view this report before your referring provider. ??If you have questions, please contact your health care provider. INDICATION: Swelling COMPARISON: None. TECHNIQUE: A compression venous ultrasound exam was performed of the left lower extremity using marinelli-scale imaging, color Doppler and spectral Doppler analysis. FINDINGS: Sonographic imaging of the left lower ex tremity demonstrates normal compressibility and color Doppler venous blood flow within the common femoral vein, deep femoral vein, and the proximal greater saphen ous vein. Within the thigh, the femoral vein is patent and compressible. At a lower level, the popliteal and posterior tibial veins also show normal compressibility and color Doppler venous blood flow. Limited imaging of the contralateral breanna in demonstrates a normal spectral waveform and color Doppler venous blood flow within the right common femoral vein. ?? Procedure Note Bethel Flynn MD - 02/16/2022For matting of this note might be different from the original. For Patients: As a result of the ntury Cures Act, medical imaging exams and procedure reports are released immediately into your electronic medical record. You may view this report before your referring provider. If you have questions, please contact yo health care provider. INDICATION: Swelling COMPARISON: None. TECHNIQUE: A compression venous ultrasound exam was performed of the left lower extremity using marinelli-scale imaging, color Doppler and spectral Doppler analysis. FINDINGS: Sonographic imaging of the left lower ex tremity demonstrates normal compressibility and color Doppler venous blood flow within the common femoral vein, deep femoral vein, and the proximal greater saphenous vein. Within the thigh, the femoral vein is pa tent and compressible. At a lower level, the popliteal and posterior tibial veins also show normal compressibility and color Doppler venous blood flow. Limited imaging of the contralateral breanna in demonstrates a normal spectral waveform and color Doppler venous blood flow within the right common femoral vein. IMPRESSION: Normal venous ultrasound exam. No eviden ce of deep vein thrombosis within the left lower extremity. Dictated by Bethel Flynn MD @ Feb 16 022 3:23PM (Electronically Signed) Rai Rosas MD US SCAN-RADIOLOGY REPORT (02/09/2022 12:00 AM CDT) Narrative This result has an attachment that is no t available. Scanner OTHER SCAN-LABORATORY REPORT (02/09/2022 12:00 AM CDT) Narrative This result has an attachment that is no t available. Scanner OTHER from Last 3 Months Additional Health Concerns Infection Onset Date Last Indicated MRSAComment: in posterior neck incision 06-22-2007 06/22/2007 06/22/2007 Insurance Payer Benefit Plan / Subscriber ID Effective Dates Phone Addre ss Type Group WC WORKERS COMP WC Quu [id number] 2020-Presen [address] [address] [place] [address] MEDICARE PART A MEDICARE PART A [id number] 2012-Present ATTN: CLAIMS - HB USE ONLY HB ONLY [address] [facility] [place] [address] MEDICARE PART B MEDICARE PART B [id number] 2020-Present ATTN: CLAIMS - HB USE ONLY HB ONLY [address] [place] [address] MEDICARE - PB MEDICARE PB [id number] 2020-Present ATT N: CLAIMS USE ONLY ONLY [address] 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 on Healthcare Directive 01/24/2018 10:16 AM [facility]ALTH[facility] RE DIRECTIVE, [facility], 01/19/18 Latest Code Status on File Code Status Date Activated Date Inactivated Comments Full Code 01/28/2008 3:22 PM 01/29/2008 4:06 PM Full Code 01/24/2008 3:32 PM 01/28/2008 3:22 PM Full Code 01/24/2008 9:14 AM 01/24/2008 3:32 PM Full Code 07/02/2007 1:20 PM 2007 10:09 PM Full Code 06/22/2007 11:16 AM 06/25/2007 6:48 PM Care Teams Credentials Specialist Relationship Specialty Start Date End Date Rai Rosas, PCP - General 08/26/[address] [place] [address] Karena Wu, PharmD Pharmacist Medication Pharmacology 03/18/[address] [place] [address] [place] [address]
--- NOTE | 2022-04-06 16:10 | ED.GENADULT ---
HPI - General Adult General Time Seen by Provider: 16:10 Date Seen: 04/06/22 Chief complaint: Extremity Pain/Injury, Lower Stated complaint: Foot Infection in Both Feet - Left Foot is Worst Time Seen by Provider: 04/06/22 15:42 Source: patient Mode of arrival: ambulatory Limitations: no limitations History of Present Illness HPI narrative: Patient is a 76 year white male who is non but diabetic who presents with left foot redness and swelling as well as leg swelling and redness. He has had significant fungal infections and foot he still on an oral antifungal medicine. Several rounds of antibiotics for tried as an outpatient both IM injections and oral medicine, currently is on sulfa meth ox is all and he has not improving in fact he has developed a rash on his left thigh and back and arms that may be related to the medication. He has had a remote history of MRSA and neck surgery, nothing recent in terms of infection. 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 He has had increasing pain in his calf he has had an ultrasound within the last couple of weeks that was negative for clot Related Data Home Medications Medication Instructions Recorded Confirmed albuterol sulfate 90 mcg/actuation 2 inh inhalation Q4H PRN 04/06/22 04/06/22 aerosol inhaler atorvastatin 40 mg tablet 40 mg PO HS 04/06/22 04/06/22 labetalol 200 mg tablet 200 mg PO BID 04/06/22 04/06/22 losartan 100 mg tablet 100 mg PO HS 04/06/22 04/06/22 montelukast 10 mg tablet 10 mg PO HS 04/06/22 04/06/22 omeprazole 40 mg capsule,delayed 40 mg PO DAILY 04/06/22 04/06/22 release sulfamethoxazole 800 1 tab PO Q12H 04/06/22 04/06/22 mg-trimethoprim 160 mg tablet terbinafine HCl 250 mg tablet 250 mg PO DAILY 04/06/22 04/06/22 Allergies Allergy/AdvReac Type Severity Reaction Status Date / Time sulfamethoxazole Allergy Rash Verified 04/06/22 18:51 [From Bactrim] trimethoprim [From Bactrim] Allergy Rash Verified 04/06/22 18:51 Review of Systems Status of ROS: Reports: 6 or more systems reviewed and unremarkable except as noted in History and below [facility] Medical History (Updated 04/07/22 @ 15:03 by Rosa Sifuentes MD) James's esophagus Benign neoplasm of colon Chronic cough 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 Smokes 10 cig/day. Drinks 3-5 regular sized beers and 1-2 glasses of wine each day. Denies recreational drug use. FULL CODE. Highest level of school completed/degree received: Master's degree Smoking Status: Current every day smoker What tobacco products do you use: cigarettes Years smoked: 50 Do you use any of these nicotine containing products: None Second hand tobacco smoke exposure: Yes How often do you have a drink containing alcohol: 4 or more times a week Alcohol type: beer How many standard drinks containing alcohol do you have on a typical day: 5 or 6 How often do you have six or more drinks on one occasion: Never AUDIT-C Alcohol total score: 6 Non-prescribed substance use: denies use Caffeine: Yes service: No Exam Narrative: Exam Narrative: Objective: Patient's vital signs unremarkable he is afebrile He is alert or x3 His lower extremities show significant redness in the left lower extremity from just below the knee down to his entire foot his ankle is swollen. He has got severe scaling and fungal type infection of the foot bilaterally but left greater than right, got some mild redness of the right leg but primarily it is the left leg that is affected. Tender to touch in the posterior aspect of his calf, no venous cords or palpable cords Const: Vital Signs, click to edit/add: Vital Signs - 24 hr 04/06/22 15:19 Temperature 97.7 F Pulse Rate [Right Pulse Oximeter] 78 Respiratory Rate 18 Blood Pressure [Ri ght Upper Arm] 124/71 Pulse Oximetry 99 Oxygen Delivery Me thod Room Air Course Vital Signs Vital signs: Initial Vital Signs Temperature 97.7 F 11/30/22 15:19 Temperature Source Temporal Artery Scan 04/06/22 15:19 Pulse Rate 78 04/06/22 15:19 Pulse Rhythm 04/06/22 15:19 Respiratory Rate 18 04/06/22 15:19 Blood Pressure 124/71 04/06/22 15:19 Blood Pressure Mean 88 04/06/22 15:19 Blood Pressure Position Sitting 04/06/22 15:19 Pulse Oximetry 99 04/06/22 15:19 Oxygen Delivery Method 04/06/22 15:19 Vital Signs Temperature 97.7 F 04/06/22 15:19 Pulse Rate 78 04/06/22 15:19 Respiratory Rate 18 04/06/22 15:19 Blood Pressure 124/71 04/06/22 15:19 Pulse Oximetry 99 04/06/22 15:19 Oxygen Delivery Method 04/06/22 15:19 Temperature 98.7 F 04/07/22 19:00 Pulse Rate 81 04/07/22 19:00 Respiratory Rate 16 04/07/22 19:00 Blood Pressure 151/75 H 04/07/22 19:00 Pulse Oximetry 96 04/07/22 19:00 Oxygen Delivery Method 04/07/22 19:00 Medical Decision Making MDM Narrative Medical decision making narrative: Patient is presenting with significant cellulitis in his left lower extremity primarily. He has got scaling dermatitic changes in his foot which is likely the source of the infection. I think you would benefit from wound care, hospitalization, IV antibiotics, IV vancomycin, pasteuriser operator consult, and possibly wound center consult. May need some vascular assessment as well of his blood flow in his legs. He and his were comfortable plan. Will order blood work, and the initial antibiotic. Dr. Dowell has kindly accepted in admission status. Lab Data Labs: Lab Results 04/06/22 04/06/22 04/06/22 Range/Units 16:08 16:20 16:20 WBC 5.87 (4.50-11.00) K/uL RBC 3.15 L (4.30-5.90) m/uL Hgb 10.3 L (13.5-17.5) gm/dL Hct 30.2 L (37.0-53.0) % MCV 96 (80-100) fL MCH 33 (26-34) pg MCHC 34 (32-36) gm/dL RDW Coeff of Eloy 12.5 (11.5-15.5) % Plt Count 215 (140-440) K/uL Neut % (Auto) 58.2 (42.0-72.0) % Lymph % (Auto) 20.3 (20-44) % [place] % (Auto) 16.9 H (0.0-11.0) % Eos % (Auto) 4.1 (0.0-7.0) % Baso % (Auto) 0.2 (0.0-3.0) % Neut # (Auto) 3.42 (1.7-7.0) K/uL Lymph # (Auto) 1.19 (0.90-2.90) K/uL [place] # (Auto) 1.00 H (0.00-0.90) K/UL Eos # (Auto) 0.24 (0.00-0.50) K/uL Baso # (Auto) 0.01 (0.00-0.30) K/uL Abs Immat Gran (auto) 0.02 (0.00-0.30) K/uL Imm/Tot Granulo (auto) 0.3 % Sodium 129 L (135-149) mmol/L Potassium 5.1 (3.6-5.1) mmol/L Chloride 100 (96-114) mmol/L Carbon Dioxide 22 (20-32) mmol/L BUN 16 (7-30) mg/dL Creatinine 1.3 (0.5-1.5) mg/dL Estimated Creat Clear 49.85 Estimated GFR 58 ml/min Glucose 96 (60-115) mg/dL Hemoglobin A1c (0-5.6) % Calcium 9.2 (8.4-10.6) mg/dL Iron (49-181) ug/dL TIBC (261-462) ug/dL % Saturation (20-50) % Total Bilirubin 0.4 (0.1-1.5) mg/dL Direct Bilirubin 0.3 (0.0-0.5) mg/dL AST 60 H (12-35) U/L ALT 39 (4-50) U/L Alkaline Phosphatase 92 (40-150) U/L C-Reactive Protein 2.9 H (0.5-1.0) mg/dL Total Protein 7.4 (6.0-8.3) g/dL Albumin 4.3 (3.3-5.0) g/dL Vitamin B12 445 (243-894) pg/mL SARS-CoV-2 (PCR) Negative SARS-CoV-2 (Negative) 04/06/22 04/06/22 Range/Units 16:20 16:20 WBC (4.50-11.00) K/uL RBC (4.30-5.90) m/uL Hgb (13.5-17.5) gm/dL Hct (37.0-53.0) % MCV (80-100) fL MCH (26-34) pg MCHC (32-36) gm/dL RDW Coeff of Eloy (11.5-15.5) % Plt Count (140-440) K/uL Neut % (Auto) (42.0-72.0) % Lymph % (Auto) (20-44) % [place] % (Auto) (0.0-11.0) % Eos % (Auto) (0.0-7.0) % Baso % (Auto) (0.0-3.0) % Neut # (Auto) (1.7-7.0) K/uL Lymph # (Auto) (0.90-2.90) K/uL [place] # (Auto) (0.00-0.90) K/UL Eos # (Auto) (0.00-0.50) K/uL Baso # (Auto) (0.00-0.30) K/uL Abs Immat Gran (auto) (0.00-0.30) K/uL Imm/Tot Granulo (auto) % Sodium (135-149) mmol/L Potassium (3.6-5.1) mmol/L Chloride (96-114) mmol/L Carbon Dioxide (20-32) mmol/L BUN (7-30) mg/dL Creatinine (0.5-1.5) mg/dL Estimated Creat Clear Estimated GFR ml/min Glucose (60-115) mg/dL Hemoglobin A1c 5.43 (0-5.6) % Calcium (8.4-10.6) mg/dL Iron 88 (49-181) ug/dL TIBC 308 (261-462) ug/dL % Saturation 29 (20-50) % Total Bilirubin (0.1-1.5) mg/dL Direct Bilirubin (0.0-0.5) mg/dL AST (12-35) U/L ALT (4-50) U/L Alkaline Phosphatase (40-150) U/L C-Reactive Protein (0.5-1.0) mg/dL Total Protein (6.0-8.3) g/dL Albumin (3.3-5.0) g/dL Vitamin B12 (243-894) pg/mL SARS-CoV-2 (PCR) (Negative) Discharge Plan Discharge Clinical Impression: Cellulitis of left lower extremity Patient Disposition: Admitted As Inpatient Condition: Stable
[2022-04-06 16:26] LABS: Basophils Absolute Auto 0.01 K/uL (0.00-0.30); Basophils Percent Auto 0.2 % (0.0-3.0); Eosinophils Absolute Auto 0.24 K/uL (0.00-0.50); Eosinophils Percent Auto 4.1 % (0.0-7.0); Hematocrit 30.2 % (37.0-53.0); Hemoglobin* 10.3 gm/dL (13.5-17.5); Immature Granulocytes Abs Auto 0.02 K/uL (0.00-0.30); Immature Granulocytes Pct Auto 0.3 %; Lymphocytes Absolute Auto 1.19 K/uL (0.90-2.90); Lymphocytes Percent Auto 20.3 % (20-44); Mean Corpuscular HGB Conc 34 gm/dL (32-36); Mean Corpuscular Hemoglobin 33 pg (26-34); Mean Corpuscular Volume 96 fL (80-100); Monocytes Percent Auto 16.9 % (0.0-11.0); Neutrophils Absolute Auto 3.42 K/uL (1.7-7.0); Neutrophils Percent Auto 58.2 % (42.0-72.0); Platelet Count* 215 K/uL (140-440); RDW Coefficient of Variation % 12.5 % (11.5-15.5); Red Blood Count 3.15 m/uL (4.30-5.90); White Blood Count* 5.87 K/uL (4.50-11.00)
[2022-04-06 16:28] LABS: Slide Review Reflex No
[2022-04-06 16:40] LABS: Chloride* 100 mmol/L (96-114); Sodium* 129 mmol/L (135-149)
[2022-04-06 16:41] LABS: Potassium* 5.1 mmol/L (3.6-5.1)
[2022-04-06 16:43] LABS: Creatinine* 1.3 mg/dL (0.5-1.5); Est. Creatinine Clearance* 49.85; Estimated Glomerular Filt Rate 58 ml/min
[2022-04-06 16:44] LABS: Blood Urea Nitrogen* 16 mg/dL (7-30); Calcium* 9.2 mg/dL (8.4-10.6); Carbon Dioxide* 22 mmol/L (20-32); Glucose* 96 mg/dL (60-115)
[2022-04-06 16:47] LABS: C Reactive Protein* 2.9 mg/dL (0.5-1.0)
--- NOTE | 2022-04-06 16:47 | ED.NURSE ---
dr landeros was asked if he wanted sulfa listed as an allergy due to numerous hive type lesions on his body. dr wanted to have hospitalist determine if this was a true allergy or not, or to list as such. is getting iv vanco now.
[2022-04-06 16:56] LABS: SARS PCR* Negative SARS-CoV-2 (Negative)
[2022-04-06 17:12] VITALS: BP 132/72; PULSE 72; RESP 18; O2SAT 100; BMI 33.2
--- NOTE | 2022-04-06 18:52 | PM.IMHP1 ---
Hospitalist- H&P: HPI History of Present Illness Time Seen by Provider: 17:45 Date Seen: 04/06/22 Chief complaint: Foot Infection in Both Feet - Left Foot is Worst Narrative: This is a 76-year-old male who is not a diabetic, but does have history of MRSA who is here for worsening infection of the left lower extremity. In early February he noticed that he had a very swollen left lower extremity, his left calf was is big is his right thigh. He saw his primary care provider who started him on ceftriaxone and then switched him over to an oral antibiotic. He had about a 10-14 day course of antibiotics. His , Judy, is here with him today and they both note that the infection seemed to get better, but did not completely go away. By the end of February his leg was much worse again and he seemed to have an open sore on his foot. He was sent to see Dr. Palacio from podiatry who ordered ketoconazole cream and terbinafine oral. Since then he feels like his leg continues to just get worsen worse and his toes are bright red. The day after Thanksgi he was started on Bactrim for a week. Within the last 24 hours he has noticed a bright red rash with spots showing up all over his body. His tells me that the swelling in his leg gets better by morning, when his leg has been up all night, but the redness does not improve. He denies fevers or chills. He has not had any chest pain or shortness of breath. 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 Smokes 10 cig/day. Drinks 3-5 regular sized beers and 1-2 glasses of wine each day. Denies recreational drug use. FULL CODE. Highest level of school completed/degree received: Master's degree Smoking Status: Current every day smoker What tobacco products do you use: cigarettes Years smoked: 50 Do you use any of these nicotine containing products: None Second hand tobacco smoke exposure: Yes How often do you have a drink containing alcohol: 4 or more times a week Alcohol type: beer How many standard drinks containing alcohol do you have on a typical day: 5 or 6 How often do you have six or more drinks on one occasion: Never AUDIT-C Alcohol total score: 6 Non-prescribed substance use: denies use Caffeine: Yes service: No Meds Home Medications and Allergies Home Medications Medication Instructions Recorded Confirmed Type albuterol sulfate 90 mcg/actuation 2 inh inhalation Q4H PRN 04/06/22 04/06/22 History aerosol inhaler atorvastatin 40 mg tablet 40 mg PO HS 04/06/22 04/06/22 History labetalol 200 mg tablet 200 mg PO BID 04/06/22 04/06/22 History losartan 100 mg tablet 100 mg PO HS 04/06/22 04/06/22 History montelukast 10 mg tablet 10 mg PO HS 04/06/22 04/06/22 History omeprazole 40 mg capsule,delayed 40 mg PO DAILY 04/06/22 04/06/22 History release sulfamethoxazole 800 1 tab PO Q12H 04/06/22 04/06/22 History mg-trimethoprim 160 mg tablet terbinafine HCl 250 mg tablet 250 mg PO DAILY 04/06/22 04/06/22 History Allergies Allergy/AdvReac Type Severity Reaction Status Date / Time sulfamethoxazole Allergy Rash Verified 04/06/22 18:51 [From Bactrim] trimethoprim [From Bactrim] Allergy Rash Verified 04/06/22 18:51 Exam Narrative: Exam Narrative: General: No acute distress. Awake alert oriented x3. HEENT: Normocephalic atraumatic, pupils equally round and reactive to light and accommodation. Oropharynx clear. Mucous membranes are moist. No cervical lymphadenopathy, thyromegaly or carotid bruits. No JVD. Cardiovascular: Regular rate and rhythm. No murmurs, gallops, or rubs. Chest: No increased work of breathing. Scattered expiratory wheezes present, no crackles. Abdomen: Protuberant abdomen. Bowel sounds present. Soft, nontender. Mild hepatomegaly. No masses. Extremities: Left lower extremity has 3+ pretibial edema to the knee with erythema and rubor, it is tender to the touch. Both feet have a cracked, almost boggy appearance, left worse than right. Right foot has a small open area at the base of the ball of the foot on the plantar surface, no oozing or bleeding. Scattered bright red spider E lesions scattered over the body, mostly on the abdomen and upper legs. Abdomen also has scattered bright red erythematous punctate rash. Drug rash appearance. No cyanosis or clubbing. Dorsalis pedis pulses are 2+ and symmetric, posterior tibial pulses are 1+ and symmetric. Skin: No jaundice, no pallor. Const: Vital Signs, click to edit/add: Vital Signs - 24 hr 04/06/22 15:19 04/06/22 17:12 Temperature 97.7 F Pulse Rate [Left P ulse Oximeter] 72 Pulse Rate [Right Pulse Oximeter] 78 Respiratory Rate 18 18 Blood Pressure [Le ft Arm] 132/72 Blood Pressure [Ri ght Upper Arm] 124/71 Pulse Oximetry 99 100 Oxygen Delivery Me thod Room Air Room Air Documenting provider has reviewed patient's vital signs: yes Hospitalist - H&P: Result Labs Labs: Short CBC 04/06/22 Range/Units 16:20 WBC 5.87 (4.50-11.00) K/uL Hgb 10.3 L (13.5-17.5) gm/dL Hct 30.2 L (37.0-53.0) % Plt Count 215 (140-440) K/uL BMP 04/06/22 16:20 Sodium 129 L Potassium 5.1 Chloride 100 Carbon Dioxide 22 BUN 16 Creatinine 1.3 Glucose 96 Calcium 9.2 Ordering Physician: Nabor Woodall M.D. Date of Service: 02/09/22 Procedure(s): XR chest 1V portable Accession Number(s): [id number] cc: Rai Rosas MD; Nabor Woodall M.D.~ For Patients:? As a result of the Century Cures Act, medical imaging exams and procedure reports are released immediately into your electronic medical record.? You may view this report before your referring provider.? If you have questions, please contact your health care provider. INDICATION: PNA, CHEST PAIN TECHNIQUE: Chest 1 view. COMPARISON: 08/28/21 FINDINGS: Cardiovascular and mediastinum: Heart size and vasculature are normal in caliber and appearance.? Mediastinum is within normal limits.? Lungs and pleural space: Lungs are clear.? No sign of infiltrate or mass.? No sign of pleural effusion.? No pneumothorax.? Bones and soft tissues: No significant findings.? IMPRESSION: Unremarkable chest. Dictated by: Bethel Yang MD @ 02/09/2022 17:48:06 (Electronically Signed) Assessment and Plan Assessment and plan (1) Cellulitis of left lower extremity: Status: Acute Assessment and Plan: Start zosyn and vanco to cover strep, staph, possible MRSA (patient has a h/o of this from 2007). Also continue lamisil to cover for probable additional fungal infection. Elevate LLE. Obtain LLE doppler US for DVT. Check HgbA1C level. (2) Hyponatremia: Status: Acute Assessment and Plan: Mild, asymptomatic. Monitor. (3) Daily consumption of alcohol: Status: Chronic Assessment and Plan: I noted that alcohol may impair his immune system. Patient is agreeable to quit drinking while this is healing. Start CIWA protocol. (4) Anemia: Problem comment: normocytic Status: Acute Assessment and Plan: No active bleeding. Check iron studies, B12, folate. (5) Tobacco use disorder: Status: Chronic Assessment and Plan: patient declines nicotine replacement. I explained that tobacco use can impair circulation and asked him to cut down/quit. 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
[2022-04-06 19:00] VITALS: BP 138/71; PULSE 83; RESP 18; TEMP 37.1; O2SAT 98
--- NOTE | 2022-04-06 19:41 | CRLHL7_ITS ---
For Patients: As a result of the Century Cures Act, medical imaging exams and procedure reports are released immediately into your electronic medical record. You may view this report before your referring provider. If you have questions, please contact your health care provider. INDICATION: Leg pain and swelling. TECHNIQUE: Ultrasound venous duplex lower right extremity. Compression venous exam was performed using marinelli-scale, color Doppler, and spectral Doppler analysis. COMPARISON: None. FINDINGS: Deep veins: Nonocclusive thrombus involving the left peroneal veins. Otherwise, the common femoral, greater saphenous, proximal deep femoral, superficial femoral, popliteal, and posterior tibial veins are patent. Superficial veins: Greater saphenous vein is fully compressible. No popliteal cyst. IMPRESSION: Nonocclusive thrombus involving the left peroneal veins. Otherwise, the common femoral, greater saphenous, proximal deep femoral, superficial femoral, popliteal, and posterior tibial veins are patent. Dictated by Nabor Castro MD @ 04/06/2022 9:20:42 PM (Electronically Signed)
[2022-04-06 19:44] VITALS: BP 138/71; PULSE 83; RESP 18; TEMP 37.1; O2SAT 98
[2022-04-06] MEDS: PIPERACILLIN/TAZOBACTAM 3.375 GM in 0.9 % SODIUM CHLORIDE Mini-bag 100 ML IVPB (19:45)
[2022-04-06] MEDS: 0.9 % SODIUM CHLORIDE 250 ml IV (19:47)
--- NOTE | 2022-04-06 19:56 | PC.NURSE ---
Nursing Care Hours: 1705 - 1900 Pt this shift calm and cooperative upon arrival. Stable on room air, SB assist with straight cane. Gait steady but bilat feet painful. L leg red, warm, and swollen up to the distal knee. Peeling and cracking on soles of bilat feet. Raised red splotches all over torso and upper and lower extremities. Denies itching or pain with rash. Scattered small papule rash over lower abdomen. Rash started last 24 hours per pt report. Bilat feet been since beginning of the month. Pain at rest 1/10, with walking 7/10. Tolerating regular diet. Abdomen large, distended, and firm. Last BM this morning per pt report.
[2022-04-06] MEDS: ATORVASTATIN CALCIUM 40 MG TABLET PO (21:40)
[2022-04-06] MEDS: LOSARTAN POTASSIUM 50 MG TABLET 100 MG PO (21:40)
[2022-04-06] MEDS: MONTELUKAST 10 MG TABLET PO (21:40)
[2022-04-06] MEDS: LABETALOL HCL 100 MG TABLET 200 MG PO (22:34)
[2022-04-06] MEDS: ENOXAPARIN 100 MG/ML INJ SUBCUT (22:36)
[2022-04-06 22:59] LABS: Albumin* 4.3 g/dL (3.3-5.0)
[2022-04-06 23:00] VITALS: BP 166/76; PULSE 86; RESP 18; TEMP 36.9; O2SAT 96
[2022-04-06 23:00] LABS: Iron* 88 ug/dL (49-181)
[2022-04-06 23:02] LABS: Alkaline Phosphatase* 92 U/L (40-150); Aspartate Amino Transferase* 60 U/L (12-35); Bilirubin Direct* 0.3 mg/dL (0.0-0.5); Bilirubin Total* 0.4 mg/dL (0.1-1.5); Total Protein* 7.4 g/dL (6.0-8.3)
[2022-04-06 23:03] LABS: Alanine Aminotransferase* 39 U/L (4-50)
[2022-04-06 23:11] LABS: Percent Iron Saturation 29 % (20-50); Total Iron Binding Capacity 308 ug/dL (261-462)
[2022-04-06 23:18] LABS: Hemoglobin A1C* 5.43 % (0-5.6)
[2022-04-06 23:53] LABS: Vitamin B12* 445 pg/mL (243-894)
[2022-04-07] VITALS (8 sets, daily range): BP systolic 131–171; BP diastolic 62–84; PULSE 72–82; RESP 16–18; TEMP 36.4–37.1; O2SAT 96–98
[2022-04-07] MEDS: PIPERACILLIN/TAZOBACTAM 3.375 GM in 0.9 % SODIUM CHLORIDE Mini-bag 100 ML IVPB ×4 (01:42→18:39)
--- NOTE | 2022-04-07 05:40 | PC.NURSE ---
Shift note: Both LE appears red, warm and tender worse in the RLE. LE elevated above heart level.Ambolate with assist of 1 and cane.Pain level has been minimal. No PRN pain medication requested.
[2022-04-07 06:50] LABS: Basophils Absolute Auto 0.02 K/uL (0.00-0.30); Basophils Percent Auto 0.3 % (0.0-3.0); Eosinophils Absolute Auto 0.32 K/uL (0.00-0.50); Hematocrit 29.2 % (37.0-53.0); Immature Granulocytes Abs Auto 0.02 K/uL (0.00-0.30); Immature Granulocytes Pct Auto 0.3 %; Lymphocytes Absolute Auto 1.74 K/uL (0.90-2.90); Lymphocytes Percent Auto 27.1 % (20-44); Mean Corpuscular HGB Conc 34 gm/dL (32-36); Mean Corpuscular Hemoglobin 33 pg (26-34); Mean Corpuscular Volume 95 fL (80-100); Neutrophils Absolute Auto 3.29 K/uL (1.7-7.0); Neutrophils Percent Auto 51.3 % (42.0-72.0); Platelet Count* 239 K/uL (140-440); RDW Coefficient of Variation % 12.5 % (11.5-15.5); Red Blood Count 3.07 m/uL (4.30-5.90); White Blood Count* 6.42 K/uL (4.50-11.00)
[2022-04-07 06:55] LABS: Slide Review Reflex No
[2022-04-07 07:13] LABS: Albumin* 4.1 g/dL (3.3-5.0); Chloride* 105 mmol/L (96-114); Potassium* 4.7 mmol/L (3.6-5.1); Sodium* 132 mmol/L (135-149)
[2022-04-07 07:15] LABS: Creatinine* 1.2 mg/dL (0.5-1.5); Est. Creatinine Clearance* 54.01; Estimated Glomerular Filt Rate 63 ml/min
[2022-04-07 07:16] LABS: Alanine Aminotransferase* 40 U/L (4-50); Alkaline Phosphatase* 97 U/L (40-150); Aspartate Amino Transferase* 50 U/L (12-35); Bilirubin Total* 0.5 mg/dL (0.1-1.5); Blood Urea Nitrogen* 16 mg/dL (7-30); Carbon Dioxide* 21 mmol/L (20-32); Total Protein* 7.1 g/dL (6.0-8.3)
[2022-04-07 07:17] LABS: Calcium* 9.1 mg/dL (8.4-10.6); Glucose* 81 mg/dL (60-115)
[2022-04-07 07:19] LABS: C Reactive Protein* 2.3 mg/dL (0.5-1.0)
[2022-04-07 07:31] LABS: Procalcitonin* 0.09 ng/mL (<0.50)
--- NOTE | 2022-04-07 09:03 | PM.IMPN1 ---
Progress Note: A&P Assessment and plan (1) Cellulitis of left lower extremity: Problem details: - continue vancomycin and Zosyn, also covering for fungal component with terbinafine - patient's comorbidities (daily alcohol use, tobacco use, hypertension, new DVT) put him at higher risk of complications - SCOTT ordered; radiology defers exam given patient's new DVT Status: Acute (2) Hyponatremia: Problem details: - chronic, per chart review. Outpatient sodium between 126-132, likely related to alcohol use Status: Acute (3) Daily consumption of alcohol: Problem details: - following CIWA, no history of withdrawal Status: Chronic (4) Anemia: Problem details: - normocytic, appears chronic per chart review (outpatient hemoglobin 10-12). 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 PCP follow-up to determine length of anticoagulation - Also notes remote history of DVT after a long flight to [facility] Status: Acute Plan - continue vancomycin and Zosyn, terbinafine - steroid ointment and Vaseline to be applied to the bottom of the feet BID to assist with dry/desquamated skin - continue to follow inflammatory markers and CIWA score Subjective Date Seen: 04/07/22 Interval history: Patient admitted hospital for left lower extremity cellulitis and left lower extremity DVT. He is tolerating vancomycin and Zosyn, he is continuing terbinafine for possible fungal component. He remains afebrile. Inflammatory markers improving. Exam Narrative: Exam Narrative: GEN: Alert HEENT: Normal external ears, EOMIs bilaterally, no scleral icterus CV: RRR, soft systolic murmur without concerning features, best heard at left upper sternal border R: LCTA bilaterally without concerning wheezing, rales, or rhonchi Ext: Palpable pulses of bilateral feet at dorsalis pedis sites Skin: Erythema of left lower extremity noted, desquamation noted on the bottom of the feet bilaterally, L>R. Multiple small abrasions to the bottom of left foot, none actively bleeding, no drainage. Patient also has an erythematous annular rash present on bilateral upper extremities, negative Nikolsky sign. He notes that this started after taking Bactrim for his cellulitis Neuro: Nonfocal, no resting tremor Psych: Appropriate Const: Vital Signs, click to edit/add: Vital Signs - 24 hr 04/06/22 15:19 04/06/22 17:12 04/06/22 19:00 Temperature 97.7 F 98.7 F Pulse Rate [Left P ulse Oximeter] 72 83 Pulse Rate [Right Pulse Oximeter] 78 Respiratory Rate 18 18 18 Blood Pressure [Le ft Arm] 132/72 138/71 Blood Pressure [Ri ght Upper Arm] 124/71 Pulse Oximetry 99 100 98 Oxygen Delivery Mi thod Room Air Room Air Room Air 04/06/22 19:44 04/06/22 23:00 04/07/22 03:00 Temperature 98.7 F 98.4 F 97.8 F Pulse Rate [Left P ulse Oximeter] 83 86 72 Pulse Rate [Right Pulse Oximeter] Respiratory Rate 18 18 18 Blood Pressure [Le ft Arm] 138/71 166/76 H 131/62 Blood Pressure [Ri ght Upper Arm] Pulse Oximetry 98 96 96 Oxygen Delivery Mi thod Room Air Room Air Room Air 04/07/22 08:04 04/07/22 08:14 Temperature 98.3 F 98.3 F Pulse Rate [Left P ulse Oximeter] 72 72 Pulse Rate [Right Pulse Oximeter] Respiratory Rate 16 16 Blood Pressure [Le ft Arm] 167/79 H 167/79 H Blood Pressure [Ri ght Upper Arm] Pulse Oximetry 96 96 Oxygen Delivery Mi thod Room Air Room Air Labs Labs: Laboratory Results - last 24 hr 04/06/22 04/06/22 04/06/22 16:08 16:20 16:20 WBC 5.87 RBC 3.15 L Hgb 10.3 L Hct 30.2 L MCV 96 MCH 33 MCHC 34 RDW Coeff of Eloy 12.5 Plt Count 215 Neut % (Auto) 58.2 Lymph % (Auto) 20.3 [place] % (Auto) 16.9 H Eos % (Auto) 4.1 Baso % (Auto) 0.2 Neut # (Auto) 3.42 Lymph # (Auto) 1.19 [place] # (Auto) 1.00 H Eos # (Auto) 0.24 Baso # (Auto) 0.01 Abs Immat Gran (auto) 0.02 Imm/Tot Granulo (auto) 0.3 Sodium 129 L Potassium 5.1 Chloride 100 Carbon Dioxide 22 BUN 16 Creatinine 1.3 Estimated Creat Clear 49.85 Estimated GFR 58 Glucose 96 Hemoglobin A1c Calcium 9.2 Iron TIBC % Saturation Total Bilirubin 0.4 Direct Bilirubin 0.3 AST 60 H ALT 39 Alkaline Phosphatase 92 C-Reactive Protein 2.9 H Total Protein 7.4 Albumin 4.3 Vitamin B12 445 Procalcitonin SARS-CoV-2 (PCR) Negative SARS-CoV-2 04/06/22 04/06/22 04/07/22 16:20 16:20 05:52 WBC 6.42 RBC 3.07 L Hgb 10.0 L Hct 29.2 L MCV 95 MCH 33 MCHC 34 RDW Coeff of Eloy 12.5 Plt Count 239 Neut % (Auto) 51.3 Lymph % (Auto) 27.1 [place] % (Auto) 16.0 H Eos % (Auto) 5.0 Baso % (Auto) 0.3 Neut # (Auto) 3.29 Lymph # (Auto) 1.74 [place] # (Auto) 1.00 H Eos # (Auto) 0.32 Baso # (Auto) 0.02 Abs Immat Gran (auto) 0.02 Imm/Tot Granulo (auto) 0.3 Sodium Potassium Chloride Carbon Dioxide BUN Creatinine Estimated Creat Clear Estimated GFR Glucose Hemoglobin A1c 5.43 Calcium Iron 88 TIBC 308 % Saturation 29 Total Bilirubin Direct Bilirubin AST ALT Alkaline Phosphatase C-Reactive Protein Total Protein Albumin Vitamin B12 Procalcitonin SARS-CoV-2 (PCR) 04/07/22 05:52 WBC RBC Hgb Hct MCV MCH MCHC RDW Coeff of Elyo Plt Count Neut % (Auto) Lymph % (Auto) [place] % (Auto) Eos % (Auto) Baso % (Auto) Neut # (Auto) Lymph # (Auto) [place] # (Auto) Eos # (Auto) Baso # (Auto) Abs Immat Gran (auto) Imm/Tot Granulo (auto) Sodium 132 L Potassium 4.7 Chloride 105 Carbon Dioxide 21 BUN 16 Creatinine 1.2 Estimated Creat Clear 54.01 Estimated GFR 63 Glucose 81 Hemoglobin A1c Calcium 9.1 Iron TIBC % Saturation Total Bilirubin 0.5 Direct Bilirubin AST 50 H ALT 40 Alkaline Phosphatase 97 C-Reactive Protein 2.3 H Total Protein 7.1 Albumin 4.1 Vitamin B12 Procalcitonin 0.09 SARS-CoV-2 (PCR)
[2022-04-07] MEDS: LABETALOL HCL 100 MG TABLET 200 MG PO ×2 (09:27→20:59)
[2022-04-07] MEDS: OMEPRAZOLE 20 MG CAPSULE DR 40 MG PO (09:28)
[2022-04-07] MEDS: RIVAROXABAN 10 MG TABLET 15 MG PO ×2 (09:28→21:00)
[2022-04-07] MEDS: hydrOXYzine pamoate 25 MG CAPSULE PO ×3 (09:29→21:05)
[2022-04-07] MEDS: NON-FORMULARY MEDICATION (Terbinafine Hcl 250 mg tablet) 250 EACH PO (09:30)
[2022-04-07] MEDS: TRIAMCINOLONE ACETONIDE OINTMENT 0.1 % 1 APPLIC TOPICAL ×2 (09:31→21:01)
--- NOTE | 2022-04-07 13:56 | PC.NURSE ---
End of shift note: Patient has been doing well today. Denies nausea. Has pain on feet but denies need for pain medication. Has been up with stand by assist with cane. Voiding without difficulty. LBM yesterday. Passing flatus. Tolerating a regular diet. PIV patent and intact. Receiving intermittent antibiotics for Cellulitis. Receiving Xarelto for new DVT in right Lower Extremity. Receiving PO antifungal meds for feet and getting 1/2 tube of triamcinolone mixed with a full tube of vasaline applied all over feet and covered with socks to help with flakes BID. Comes from home with . PT/OT evaluated him and he does not need therapy. Patient trying to elevate his legs as much as possible when not eating in chair or ambulating to bathroom. BP was elevated this morning but better after medications. Took Hydroxyzine for the rash that is on body from PO sulfa meds prior to admission. This seemed to help him. Patient does drink 3-5 beers daily at home. CIWAs so far are negative.
[2022-04-07] MEDS: 0.9 % SODIUM CHLORIDE 250 ml IV (18:40)
[2022-04-07] MEDS: ATORVASTATIN CALCIUM 40 MG TABLET PO (20:59)
[2022-04-07] MEDS: MONTELUKAST 10 MG TABLET PO (20:59)
[2022-04-07] MEDS: LOSARTAN POTASSIUM 50 MG TABLET 100 MG PO (20:59)
[2022-04-07] MEDS: SODIUM CHLORIDE 0.9 % (FLUSH) 10 ML SYRINGE 5 ML IVF (21:00)
[2022-04-08] MEDS: PIPERACILLIN/TAZOBACTAM 3.375 GM in 0.9 % SODIUM CHLORIDE Mini-bag 100 ML IVPB ×3 (01:09→12:34)
[2022-04-08] MEDS: SODIUM CHLORIDE 0.9 % (FLUSH) 10 ML SYRINGE 5 ML IVF ×2 (01:10→09:40)
[2022-04-08 03:00] VITALS: BP 171/84; BP 174/80; PULSE 71; RESP 16; TEMP 37; O2SAT 95
--- NOTE | 2022-04-08 04:56 | PC.NURSE ---
End of Shift: Patient pleasant and cooperative. Afebrile. Denies pain. Up to chair and bathroom with SBA and cane. Bilateral lower extremities reddened/warm with left greater than right, elevated. PRN Vistaril x1 for itching. Tolerating regular with with no nausea. Aqua-k pad for neck stiffness.
[2022-04-08 06:58] LABS: Basophils Absolute Auto 0.02 K/uL (0.00-0.30); Basophils Percent Auto 0.3 % (0.0-3.0); Eosinophils Absolute Auto 0.38 K/uL (0.00-0.50); Eosinophils Percent Auto 5.6 % (0.0-7.0); Hematocrit 29.3 % (37.0-53.0); Hemoglobin* 9.9 gm/dL (13.5-17.5); Immature Granulocytes Abs Auto 0.03 K/uL (0.00-0.30); Immature Granulocytes Pct Auto 0.4 %; Lymphocytes Absolute Auto 1.67 K/uL (0.90-2.90); Lymphocytes Percent Auto 24.5 % (20-44); Mean Corpuscular HGB Conc 34 gm/dL (32-36); Mean Corpuscular Hemoglobin 33 pg (26-34); Mean Corpuscular Volume 96 fL (80-100); Monocytes Percent Auto 16.5 % (0.0-11.0); Neutrophils Percent Auto 52.7 % (42.0-72.0); Platelet Count* 249 K/uL (140-440); RDW Coefficient of Variation % 12.6 % (11.5-15.5); Red Blood Count 3.05 m/uL (4.30-5.90); White Blood Count* 6.83 K/uL (4.50-11.00)
[2022-04-08 07:00] VITALS: BP 177/85; PULSE 71; RESP 16; TEMP 36.9; O2SAT 95
[2022-04-08 07:01] LABS: Slide Review Reflex No
[2022-04-08 07:13] LABS: Chloride* 107 mmol/L (96-114); Potassium* 4.7 mmol/L (3.6-5.1); Sodium* 134 mmol/L (135-149)
[2022-04-08 07:16] LABS: Blood Urea Nitrogen* 17 mg/dL (7-30); Carbon Dioxide* 21 mmol/L (20-32); Creatinine* 1.1 mg/dL (0.5-1.5); Est. Creatinine Clearance* 58.92; Estimated Glomerular Filt Rate 70 ml/min; Glucose* 100 mg/dL (60-115)
[2022-04-08 07:17] LABS: Calcium* 8.9 mg/dL (8.4-10.6)
[2022-04-08 07:19] LABS: C Reactive Protein* 1.3 mg/dL (0.5-1.0)
[2022-04-08] MEDS: OMEPRAZOLE 20 MG CAPSULE DR 40 MG PO (09:38)
[2022-04-08] MEDS: RIVAROXABAN 10 MG TABLET 15 MG PO (09:39)
[2022-04-08] MEDS: NON-FORMULARY MEDICATION (Terbinafine Hcl 250 mg tablet) 250 EACH PO (09:39)
[2022-04-08] MEDS: TRIAMCINOLONE ACETONIDE OINTMENT 0.1 % 1 APPLIC TOPICAL (09:41)
[2022-04-08] MEDS: LABETALOL HCL 100 MG TABLET 200 MG PO (09:42)
[2022-04-08] MEDS: hydrOXYzine pamoate 25 MG CAPSULE PO (10:48)
[2022-04-08 11:00] VITALS: BP 189/79; PULSE 70; RESP 16; TEMP 36.6; O2SAT 97
--- NOTE | 2022-04-08 13:33 | PM.DS1 ---
DS: Providers Provider Date Seen: 04/08/22 Date of admission: 04/06/22 16:28 Primary care physician: Rai Rosas MD Admitting Clinician: Latoya Dowell MD Attending Physician on discharge: Latoya Dowell MD Date of Discharge: 04/08/22 DS: Diagnosis Discharge Diagnosis (1) Tinea pedis: Status: Acute Problem details: Extensive bilateral tinea pedis is the primary cause of his foot problems. Can not rule out some impetigo as well (2) Cellulitis of left lower extremity: Status: Acute Problem details: In February patient gives a description of a classic left lower extremity cellulitis with systemic illness, fevers, swelling and redness of his left calf. This has almost entirely resolved except for the swelling in his left calf. Minimal erythema still present in the left leg possibly due to clot or tinea. (3) DVT (deep venous thrombosis): Status: Acute Problem details: Ultrasound in February did not show a clot but he now has a left peroneal vein clot. Likely causing ongoing swelling in his left leg and foot. (4) Adverse drug reaction: Status: Acute Problem details: Patient appears to have had a diffuse maculopapular rash possibly related to Bactrim. DS: Summary Status at Discharge Cognitive/behavioral status at discharge: 76-year-old male admitted to the hospital with a 7 or 8 week history of left lower extremity and now bilateral lower extremity redness swelling and pain. In February he had a diagnosis of cellulitis of the left lower extremity. Ultrasound was negative for DVT. He had systemic illness with fever weakness redness and swelling. Treated with a variety of antibiotics and symptoms resolved. In March he has developed crusting in the intertriginous spaces of his toes more left than right foot with prominent scaling of skin around that and toe and foot pain. He was started on topical ketoconazole for treatment of tinea pedis but did not improve with that treatment. He also continued to get systemic antibiotics. He was admitted to the hospital here where he was diagnosed with cellulitis and treated with vancomycin, piperacillin tazobactam, oral terbinafine. The last 2 days he has had some improvement in his foot pain. Because of persisting swelling in his left foot he had an ultrasound which shows a peroneal vein DVT. He started on anti coagulation for this. Functional status at discharge: independent ambulation Overall status at discharge: patient is progressing back to baseline Time Spent with Patient Time attestation: Total time spent providing and/or coordinating discharge services: Time spent: Greater than 30 minutes Exam Narrative: Exam Narrative: He is alert and appears in no distress. Respirations are clear to auscultation. Cardiovascular: S1, S2, 2/6 systolic murmur. No gallop or rub. Regular rate and rhythm. Abdomen: Bowel sounds active. Abdomen is soft without tenderness or mass. Lower extremities are notable for bounding pedal pulses. 2+ edema in the left lower extremity and 1+ edema in the right lower extremity. Prominent fissuring scaling and losing of the skin in the intertriginous spaces of both feet with some surrounding erythema. He has a purplish induration of his left calf as well feet are warm to touch and somewhat tender to touch. Intact sensation. Skin is examined shows a diffuse maculopapular exanthem over his entire trunk, arms and legs Const: Vital Signs, click to edit/add: Vital Signs - 24 hr 04/07/22 15:00 04/07/22 15:00 04/07/22 15:00 Temperature 98.5 F 98.5 F Pulse Rate [Left P ulse Oximeter] 74 74 74 Respiratory Rate 16 16 16 Blood Pressure [Le ft Arm] 154/73 H 154/73 H Blood Pressure [Ri ght Arm] Pulse Oximetry 98 98 [facility]xygen [facility] Room Air 04/07/22 19:00 04/07/22 19:00 04/07/22 23:00 Temperature 98.7 F 98.7 F 98.7 F Pulse Rate [Left P ulse Oximeter] 81 81 82 Respiratory Rate 16 16 16 Blood Pressure [Le ft Arm] 151/75 H 151/75 H 171/84 H Blood Pressure [Ri ght Arm] Pulse Oximetry 96 96 96 Oxygen Delivery Nd thod Room Air Room Air Room Air 04/07/22 23:00 04/07/22 23:00 04/08/22 03:00 Temperature 98.7 F 98.6 F Pulse Rate [Left P ulse Oximeter] 82 82 71 Respiratory Rate 16 16 16 Blood Pressure [Le ft Arm] 171/84 H Blood Pressure [Ri ght Arm] 174/80 H Pulse Oximetry 96 95 Oxygen Delivery Nd thod Room Air Room Air 04/08/22 03:00 04/08/22 07:00 04/08/22 07:00 Temperature 98.6 F 98.4 F Pulse Rate [Left P ulse Oximeter] 71 71 71 Respiratory Rate 16 16 16 Blood Pressure [Le ft Arm] 171/84 H 177/85 H Blood Pressure [Ri ght Arm] 174/80 H Pulse Oximetry 95 95 Oxygen Delivery Me thod Room Air Room Air 04/08/22 07:00 04/08/22 11:00 04/08/22 11:00 Temperature 98.4 F 97.9 F 97.9 F Pulse Rate [Left P ulse Oximeter] 71 70 70 Respiratory Rate 16 16 16 Blood Pressure [Le ft Arm] 177/85 H Blood Pressure [Ri ght Arm] 189/79 H 189/79 H Pulse Oximetry 95 97 97 Oxygen Delivery Me thod Room Air Room Air Room Air Documenting provider has reviewed patient's vital signs: yes DS: Data Data Completed and Pending Labs on day of discharge: Labs from last 24 hours 04/08/22 04/08/22 06:37 06:37 WBC 6.83 RBC 3.05 L Hgb 9.9 L Hct 29.3 L MCV 96 MCH 33 MCHC 34 RDW Coeff of Eloy 12.6 Plt Count 249 Neut % (Auto) 52.7 Lymph % (Auto) 24.5 Pierce % (Auto) 16.5 H Eos % (Auto) 5.6 Baso % (Auto) 0.3 Neut # (Auto) 3.60 Lymph # (Auto) 1.67 Pierce # (Auto) 1.10 H Eos # (Auto) 0.38 Baso # (Auto) 0.02 Abs Immat Gran (auto) 0.03 Imm/Tot Granulo (auto) 0.4 Sodium 134 L Potassium 4.7 Chloride 107 Carbon Dioxide 21 BUN 17 Creatinine 1.1 Estimated Creat Clear 58.92 Estimated GFR 70 Glucose 100 Calcium 8.9 C-Reactive Protein 1.3 H Discharge Plan Discharge Disposition: Home, Self-Care Date of Admission: 04/06/22 16:28 Attending Provider on Discharge: Vamsi Escalante Primary Care Provider: Rai Rosas Condition: Stable Anticipated Discharge Date/Time: 04/08/22 13:42 Discharge Medications: New triamcinolone acetonide 0.1 % Ointment 1 applic topical BID Qty: 30 0RF apixaban 5 mg (74 tabs) tablets,dose pack 5 mg PO BID Qty: 74 0RF doxycycline hyclate 100 mg capsule 100 mg PO BID Qty: 14 0RF Continued atorvastatin 40 mg tablet 40 mg PO HS labetalol 200 mg tablet 200 mg PO BID omeprazole 40 mg capsule,delayed release(DR/EC) 40 mg PO DAILY montelukast 10 mg tablet 10 mg PO HS losartan 100 mg tablet 100 mg PO HS albuterol sulfate 90 mcg/actuation HFA aerosol inhaler 2 inh INHALATION Q4H PRN Label Comments: INHALE 1 TO 2 PUFFS BY MOUTH EVERY 4 HOURS NEEDED FOR SHORTNESS OF BREATH terbinafine HCl 250 mg tablet 250 mg PO DAILY Qty: 14 0RF Discontinued sulfamethoxazole-trimethoprim 800-160 mg tablet 1 tab PO Q12H Label Comments: TAKE 1 TABLET BY MOUTH TWICE DAILY FOR 7 DAYS Discharge Orders: Discharge Order (Routine); Ordered 04/08/22 Ordered By: Vamsi Escalante Activity Level: Activity as Tolerated Discharge Diet: Regular Follow Up Appointments: Rai Rosas MD [Primary Care Provider] - (See Dr. Rosas next week for recheck) Forms: [employer] Info Instructions
--- NOTE | 2022-04-08 16:29 | PC.NURSE ---
Discharge: Patient pleasant and cooperative. Patient hypertensive but vitally stable, lung clear, BS WNL, IV removed catheter intact. Patient SBA with ambulation. Patient denies pain. Both feet are pink and warm but left foot is more so, and more scaly the right foot as well. Patient signed belongings sheet and discharge form. Question regarding discharge were answered. patient left the floor by wheelchair with belongings and at 1612
[2022-04-09 11:18] LABS: Folate, Serum >22.3 ng/mL (>=5.9)
== END 2022-04-08 16:12 | disposition home or self-care (01) ==
LOC: ED 16:15 → MEDSURG 16:29
PROVIDERS: Family Medicine; Admitting Provider Family Medicine; Emergency Provider Family Medicine; PCP Family Medicine; Visit Provider Family Medicine
DX: L03.116 Cellulitis of left lower limb (principal); B35.3 Tinea pedis; I82.452 Acute embolism and thrombosis of left peroneal vein; T50.905A Adverse effect of unspecified drugs, medicaments and biological substances, initial encounter; B95.62 Methicillin resistant Staphylococcus aureus infection as the cause of diseases classified elsewhere; L53.9 Erythematous condition, unspecified; R22.42 Localized swelling, mass and lump, left lower limb; M79.672 Pain in left foot; M79.89 Other specified soft tissue disorders; Z78.9 Other specified health status; R73.01 Impaired fasting glucose; G47.33 Obstructive sleep apnea (adult) (pediatric); I10 Essential (primary) hypertension; F17.200 Nicotine dependence, unspecified, uncomplicated; E87.1 Hypo-osmolality and hyponatremia; D64.9 Anemia, unspecified
CPT/HCPCS: 36415; 80048; 80053; 80076; 82607; 82746; 83036; 83540; 83550; 84145; 85025; 86140; 87635; 93971; 96365; 96366; 96368; 96372; 97116; 97161; 97165; 99283; 99284; A9270; G0378; G0379; J1650; J2543; J3370; J7050; J7120

== ENCOUNTER 2023-01-19 23:26 | Outpatient (CLI) | payer MEDICARE, OTHER, SELFPAY ==
--- OUTSIDE RECORDS SUMMARY | 2023-01-21 16:59 | XMS_ITS | Continuity of Care Document ---
Author Name Unknown Organization [facility] Address [address] [place] [address] Phone Care Team Providers Care Flight Surgeon Name Role Phone Nabor Arthur MD Unavailable [...] Date Provider Providers Copied on Encounter [facility], [address], [facility], tel:[phone] [employer] No Information 3201 0 Sandhya Tomlin. [facility], [address] [place] [address], [address], [place], [place], [id number] , [place]. tel:[phone] [facility], [address] [facility] [place], [place], [address], [place] tel:[phone] [employer] No Information 3200 8 Sandhya Tomlin. [facility], [address] [place] [address], [facility] [address], [place], [place], [id number] , [place]. tel:[phone] Referring Provider: Jamel Siddiqui, [facility] [address], [place], [address]. tel:[phone] [facility], [address] [address] [place] [address], [address], [place] tel:[phone] [facility] No Information Feb-1 0-200 8 Perra Nabor. [facility], [address] [place] [address], [address], [place], [place], [id number] , . tel:[phone] Referring Provider: Jamel Siddiqui, [facility] [address], [place], [address]. tel:[phone] [facility], [address] [place] [address], [address], tel:[phone] [facility] No Information Feb-0 3-200 8 Russellra Nabor. [facility], [address], [address], [place], [place], [id number] , . tel:[phone] Referring Provider: Jamel Siddiqui, [facility] [address] [place] [address], [address]. tel:[phone] [facility], [address] [place] [address], [address], [place] tel:[phone] No Information Feb-0 1-200 8 Sandhya Tomlin. [facility], [address], [facility] [address], [place], [id number] , [place]. tel:[phone] Referring Provider: Jamel Siddiqui, [facility] [address] [place] [address], [address]. tel:[phone] [facility], [address], [address], [place] tel:[phone] No Information Jan-2 4-200 8 Sandhya Tomlin. [facility], [address] [place] [address], [address], [place], [id number] , . tel:[phone] Referring Provider: Jamel Siddiqui, [employer] [facility] [address] [place] [address], [address]. tel:[phone] Office consultation, low [facility], [address] [place], [place] [address]ite [address] [place] [address], [address], [place] tel:[phone] [facility] No Information Sep-0 3200 8 Sandhya Tomlin. [facility], [address] [place] [address], [address], [place], [place], [id number] , [place]. tel:[phone] Referring Provider: Jamel Finch, [facility] [address] [facility], [place], [address]. tel:[phone] Family History Family Member Type Diagnosis Age At Onset No Information Payers Payer name Insurance type Covered constitution party ID Authoralexx osorio(s) [employer] [id number] Social History Type Description Quantity Date Captured [...]
== END 2023-01-19 23:27 | disposition home or self-care (01) ==
LOC: AMB 01-21 16:57
PROVIDERS: PCP Family Medicine; Visit Provider Family Medicine
DX: R53.1 Weakness (principal); R19.7 Diarrhea, unspecified; R11.0 Nausea
CPT/HCPCS: A0425; A0427

== ENCOUNTER 2023-01-20 00:22 | Inpatient (IN) | payer MEDICARE, OTHER, SELFPAY ==
[2023-01-20] VITALS (14 sets, daily range): BP systolic 93–171; BP diastolic 58–88; PULSE 83–106; RESP 16–18; TEMP 36.6–38.3; O2SAT 95–100; BMI 32.2
--- NOTE | 2023-01-20 00:52 | CRLHL7_ITS ---
For Patients: As a result of the Cures Act, medical imaging exams and procedure reports are released immediately into your electronic medical record. You may view this report before your referring provider. If you have questions, please contact your health care provider. INDICATION: Cough and fever TECHNIQUE: Chest 2 views. COMPARISON: Chest radiograph February 09, 2022 FINDINGS/IMPRESSION: Mild cardiomegaly. Normal pulmonary vasculature. Clear lungs and pleural spaces. Degenerative changes in the spine. Dictated by Navya Lira MD @ 01/20/2023 2:39:58 AM (Electronically Signed)
[2023-01-20] MEDS: 0.9 % SODIUM CHLORIDE 500 ML 500 ML 1000 ML IV (00:55)
[2023-01-20] MEDS: ONDANSETRON 2 MG/ML inj 4 MG IVP (00:55)
--- OUTSIDE RECORDS SUMMARY | 2023-01-20 00:59 | XMS_ITS | Continuity of Care Document ---
Author Name Unknown Organization Z [facility] Address [address] [place] [address] Phone Care Team Providers Care Print Manager Name Role Phone Nabor Arthur MD Unavailable Unavailable Procedures Procedure Date Postop followup visit Postop followup visit Postop followup visit Remove part of thoracic vertebra 2007 Late closure of wound, extensive 2007 Office consultation, low X-ray exam of neck spine2-3 views Advance Directives Directive Yes / No Effective Date File Name No Information Encounters Encounter Description Practice Location Reason(s) For Visit Diagnoses Date Provider Providers Copied on Encounter Z [facility], [address], [facility], tel:[phone] [employer] No Information 3201 0 Sandhya Tomlin. [facility], [address] [place] [address], [address], [place], [place], [id number] , [place]. tel:[phone] [facility], [address], [place], [address], [place] tel:[phone] [employer] No Information 3200 8 Sandhya Tomlin. [facility], [address] [place] [address], [facility], [place], [place], [id number] , [place]. tel:[phone] Referring Provider: Jamel Siddiqui, [facility] [address], [place], [address]. tel:[phone] [facility], [address] [address] [place] [address], [address], [place] tel:[phone] [facility] No Information Feb-1 0-200 8 Perra Nabor. [facility], [address] [place] [address], [address], [place], [place], [id number] , . tel:[phone] Referring Provider: Jamel Siddiqui, [facility] [address], [place], [address]. tel:[phone] [facility], [address] [place] [address], [address], tel:[phone] [facility] [place] No Information Feb-0 3-200 8 Russellra Nabor. [facility], [address], [address], [place], [place], [id number] , . tel:[phone] Referring Provider: Jamel Siddiqui, [facility] [address] [place] [address], [address]. tel:[phone] [facility], [address] [place] [address], [address], [place] tel:[phone] [facility] No Information Feb-0 1-200 8 Sandhya Tomlin. [facility], [address], [facility] [address], [place], [id number] , [place]. tel:[phone] Referring Provider: Jamel Siddiqui, [facility] [address] [place] [address], [address]. tel:[phone] [facility], [address], [address], [place] tel:[phone] [facility] No Information Jan-2 4-200 8 Sandhya Tomlin. [facility], [address] [place] [address], [address], [place], [id number] , . tel:[phone] Referring Provider: Jamel Siddiqui, [employer] [facility] [address] [place] [address], [address]. tel:[phone] Office consultation, low Z [facility], [address] [place], [place] [address] [place] [address], [address], [place] tel:[phone] [facility] No Information Sep-0 3200 8 Sandhya Tomlin. [facility], [address] [place] [address], [address], [place], [place], [id number] , [place]. tel:[phone] Referring Provider: Jamel Finch, [facility] [address] [facility], [place], [address]. tel:[phone] Family History Family Member Type Diagnosis Age At Onset No Information Payers Payer name Insurance type Covered constitution party ID Authoralexx osorio(s) [employer] [id number] Social History Type Description Quantity Date Captured Comments Sex Male Smoking Status No Information Chief Complaint And Reason For Visit No Information Reason For Referral Reason For Referral No Information History Of Present Illness Encounter Date Complaint History Of Prese nt Illness No Information Functional Status Date Functional Assessmen t No Information Instructions Date Instruction Additional Infor mation No Information Assessments Type Assessment Date No Information Patient Care Teams Name Effective Dates (start - stop) Status Members No Information
[2023-01-20 01:16] LABS: Lactate* 1.6 mmol/L (0.5-1.9)
[2023-01-20 01:18] LABS: Basophils Absolute Auto 0.01 K/uL (0.00-0.30); Basophils Percent Auto 0.1 % (0.0-3.0); Hemoglobin* 11.3 gm/dL (13.5-17.5); Immature Granulocytes Abs Auto 0.04 K/uL (0.00-0.30); Immature Granulocytes Pct Auto 0.5 %; Lymphocytes Percent Auto 5.6 % (20-44); Mean Corpuscular HGB Conc 34 gm/dL (32-36); Mean Corpuscular Hemoglobin 33 pg (26-34); Mean Corpuscular Volume 95 fL (80-100); Monocytes Percent Auto 7.6 % (0.0-11.0); Neutrophils Percent Auto 86.2 % (42.0-72.0); Platelet Count* 186 K/uL (140-440); RDW Coefficient of Variation % 12.7 % (11.5-15.5); Red Blood Count 3.48 m/uL (4.30-5.90)
[2023-01-20 01:25] LABS: Slide Review Reflex No
[2023-01-20 01:32] LABS: Albumin* 4.4 g/dL (3.3-5.0); Chloride* 92 mmol/L (96-114); Potassium* 4.1 mmol/L (3.6-5.1); Sodium* 126 mmol/L (135-149)
[2023-01-20 01:35] LABS: Alanine Aminotransferase* 33 U/L (4-50); Alkaline Phosphatase* 84 U/L (40-150); Anion Gap 11 mEq/L (7-15); Aspartate Amino Transferase* 52 U/L (12-35); Bilirubin Direct* 0.1 mg/dL (0.0-0.5); Bilirubin Total* 0.8 mg/dL (0.1-1.5); Blood Urea Nitrogen* 28 mg/dL (7-30); Carbon Dioxide* 23 mmol/L (20-32); Creatinine* 1.6 mg/dL (0.5-1.5); Est. Creatinine Clearance* 39.89; Estimated Glomerular Filt Rate 45 ml/min; Glucose* 106 mg/dL (60-115); Total Protein* 7.8 g/dL (6.0-8.3)
[2023-01-20 01:36] LABS: Calcium* 9.1 mg/dL (8.4-10.6)
[2023-01-20] MEDS: cefTRIAXone 2 GM in 0.9 % SODIUM CHLORIDE Mini-bag 100 ML IVPB (01:40)
[2023-01-20 01:59] LABS: PCR FLU A Negative PCR FLU A (Negative); PCR FLU B Negative PCR FLU B (Negative)
[2023-01-20 02:11] LABS: SARS PCR* Negative SARS-CoV-2 (Negative)
--- NOTE | 2023-01-20 03:30 | PM.IMHP1 ---
Hospitalist- H&P: HPI History of Present Illness Date Seen: 01/20/23 Chief complaint: nausea,chills,diarrhea Narrative: Rai Rodriguez is a 77 year old male with a h/o HTN, HLD, GERD, AMANDA, obesity who presented to the ED with weakness, subjective fevers, chills and decreased PO intake for the last 2 days. The patient had an ear lavage on Mon, and afterwards the patient started feeling poorly. He endorses nausea but not vomiting. He states he has a slight cough as well. COVID, influenza, RSV were negative. CXR negative for infiltrates, patient is not hypoxic nor sob. The patient in the ED had a swollen and erythematous left leg. He has had reported DVT and cellulitis in that leg previously, and was treated with AC for 3 months. His symptoms do not seem to be correlated with his leg, however with the cellulitis appearance, he will be admitted for IV abx. Review of Systems Status of ROS: Reports: 10 or more systems reviewed and unremarkable except as noted in History and below PFSH PFSH Medical History Hyponatremia ?E87.1 - Hypo-osmolality and hyponatremia (ICD-10) Fever ?R50.9 - Fever, unspecified (ICD-10) Adverse drug reaction ?T50.905A - Adverse effect of unspecified drugs, medicaments and biological substances, initial encounter (ICD-10) Difficult intubation ?T88.4XXA - Failed or difficult intubation, initial encounter (ICD-10) MRSA cellulitis ?L03.90 - Cellulitis, unspecified (ICD-10) ?B95.62 - Methicillin resistant Staphylococcus aureus infection as the cause of diseases classified elsewhere (ICD-10) 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 (ICD-10) Chronic cough ?R05.3 - Chronic cough (ICD-10) Erectile dysfunction ?N52.9 - Male erectile dysfunction, unspecified (ICD-10) Hyperlipidemia ?E78.5 - Hyperlipidemia, unspecified (ICD-10) Benign neoplasm of colon ?D12.6 - Benign neoplasm of colon, unspecified (ICD-10) Impaired fasting glucose ?R73.01 - Impaired fasting glucose (ICD-10) Ingrowing toenail ?L60.0 - Ingrowing nail (ICD-10) AMANDA (obstructive sleep apnea) ?G47.33 - Obstructive sleep apnea (adult) (pediatric) (ICD-10) Spinal stenosis of cervical region ?M48.02 - Spinal stenosis, cervical region (ICD-10) Tobacco use disorder ?F17.200 - Nicotine dependence, unspecified, uncomplicated (ICD-10) James's esophagus ?K22.70 - James's esophagus without dysplasia (ICD-10) Esophageal reflux ?K21.9 - Gastro-esophageal reflux disease without esophagitis (ICD-10) Essential hypertension ?I10 - Essential (primary) hypertension (ICD-10) Obesity ?E66.9 - Obesity, unspecified (ICD-10) Anemia ?D64.9 - Anemia, unspecified (ICD-10) Daily consumption of alcohol ?Z78.9 - Other specified health status (ICD-10) Surgical History H/O vasectomy ?Z98.52 - Vasectomy status (ICD-10) S/P tonsillectomy ?Z90.89 - Acquired absence of other organs (ICD-10) H/O arthroscopy of shoulder ?Z98.890 - Other specified postprocedural states (ICD-10) S/P trigger finger release ?Z98.890 - Other specified postprocedural states (ICD-10) S/P laminectomy ?Z98.890 - Other specified postprocedural states (ICD-10) Hx of cataract extraction ?Z98.49 - Cataract extraction status, unspecified eye (ICD-10) S/P total knee arthroplasty ?Z96.659 - Presence of unspecified artificial knee joint (ICD-10) Social History (Updated 04/06/22 @ 19:38 by Latoya Dowell MD) Narrative: to Judy. Smokes 10 cig/day. Drinks 3-5 regular sized beers and 1-2 glasses of wine each day. Denies recreational drug use. FULL CODE. Highest level of school completed/degree received: Master's degree Smoking Status: Current every day smoker What tobacco products do you use: cigarettes Years smoked: 50 Do you use any of these nicotine containing products: None Second hand tobacco smoke exposure: Yes How often do you have a drink containing alcohol: 4 or more times a week Alcohol type: beer How many standard drinks containing alcohol do you have on a typical day: 5 or 6 How often do you have six or more drinks on one occasion: Never AUDIT-C Alcohol total score: 6 Non-prescribed substance use: denies use Caffeine: Yes service: No Meds Home Medications and Allergies Home Medications Medication Instructions Recorded Confirmed Type albuterol sulfate 90 mcg/actuation 2 inh inhalation Q4H PRN 04/06/22 01/20/23 History aerosol inhaler atorvastatin 40 mg tablet 40 mg PO HS 04/06/22 01/20/23 History labetalol 200 mg tablet 200 mg PO BID 04/06/22 01/20/23 History losartan 100 mg tablet 100 mg PO HS 04/06/22 01/20/23 History montelukast 10 mg tablet 10 mg PO HS 04/06/22 01/20/23 History omeprazole 40 mg capsule,delayed 40 mg PO DAILY 04/06/22 01/20/23 History release Allergies Allergy/AdvReac Type Severity Reaction Status Date / Time sulfamethoxazole Allergy Mild Rash Verified 01/20/23 00:32 [From Bactrim] trimethoprim [From Bactrim] Allergy Mild Rash Verified 01/20/23 00:32 Exam Narrative: Exam Narrative: GEN: AA, NAD, obese HEENT: atraumatic, normocephalic Neck: supple, no masses, no JVD CVS: S1 S2 RRR LUNGS: CTA b/l ABD: soft, obese, ND, NT EXT: no edema, some swelling with +Erythema left lower leg, sparing foot and knee, circumferential SKIN: no lesions NEURO: oriented x 3 PSYCH: normal affect Const: Vital Signs, click to edit/add: Vital Signs - 24 hr 01/20/23 00:30 01/20/23 00:53 01/20/23 03:27 Temperature 100.9 F H 99.2 F Pulse Rate [Right Pulse Oximeter] 103 H 94 Respiratory Rate 18 18 Blood Pressure [Ri ght Upper Arm] 113/74 118/68 Pulse Oximetry 98 97 97 Oxygen Delivery Me thod Room Air Room Air Hospitalist - H&P: Result Labs Labs: Short CBC 01/20/23 Range/Units 01:05 WBC 8.50 (4.50-11.00) K/uL Hgb 11.3 L (13.5-17.5) gm/dL Hct 33.0 L (37.0-53.0) % Plt Count 186 (140-440) K/uL BMP 01/20/23 01:05 Sodium 126 L Potassium 4.1 Chloride 92 L Carbon Dioxide 23 BUN 28 Creatinine 1.6 H Glucose 106 Calcium 9.1 Liver Function 01/20/23 Range/Units 01:05 Total Bilirubin 0.8 (0.1-1.5) mg/dL Direct Bilirubin 0.1 (0.0-0.5) mg/dL AST 52 H (12-35) U/L ALT 33 (4-50) U/L Alkaline Phosphatase 84 (40-150) U/L Albumin 4.4 (3.3-5.0) g/dL Assessment and Plan Assessment and plan (1) Cellulitis of left lower extremity: Status: Acute Assessment and Plan: -IV ceftriaxone -follow blood cultures drawn in ED (2) Weakness: Status: Acute Assessment and Plan: -PT/OT evaluation (3) Sepsis: Status: Acute Assessment and Plan: -IVFs -abx as above (4) Nausea: Status: Acute Assessment and Plan: -antiemetics (5) Fever: Status: Inactive Assessment and Plan: -Tylenol prn (6) Hypertension: Status: Acute Assessment and Plan: bp and HR wnl here. Continue home meds as able (7) KIA (acute kidney injury): Status: Acute (8) Hyponatremia: Problem comment: - chronic, per chart review. Outpatient sodium between 126-132, likely related to alcohol use Status: Acute (9) Tobacco dependence: Status: Acute Assessment and Plan: -Patient declines nicotine replacement
[2023-01-20] MEDS: 0.9 % SODIUM CHLORIDE 1000 ml 1,000 ML 125 ML IV ×2 (05:44→16:41)
[2023-01-20] MEDS: AZITHROMYCIN 250 MG TABLET 500 MG PO (05:45)
[2023-01-20 07:04] LABS: Basophils Absolute Auto 0.01 K/uL (0.00-0.30); Basophils Percent Auto 0.1 % (0.0-3.0); Immature Granulocytes Abs Auto 0.03 K/uL (0.00-0.30); Immature Granulocytes Pct Auto 0.3 %; Lymphocytes Percent Auto 8.4 % (20-44); Mean Corpuscular HGB Conc 35 gm/dL (32-36); Mean Corpuscular Hemoglobin 32 pg (26-34); Mean Corpuscular Volume 94 fL (80-100); Monocytes Percent Auto 8.4 % (0.0-11.0); Neutrophils Percent Auto 82.8 % (42.0-72.0); Platelet Count* 170 K/uL (140-440); RDW Coefficient of Variation % 12.7 % (11.5-15.5); Red Blood Count 3.09 m/uL (4.30-5.90); White Blood Count* 8.89 K/uL (4.50-11.00)
[2023-01-20 07:06] LABS: Slide Review Reflex No
[2023-01-20 07:27] LABS: Chloride* 94 mmol/L (96-114); Potassium* 3.7 mmol/L (3.6-5.1)
[2023-01-20 07:29] LABS: Sodium* 125 mmol/L (135-149)
[2023-01-20 07:30] LABS: Anion Gap 11 mEq/L (7-15); Blood Urea Nitrogen* 29 mg/dL (7-30); Calcium* 8.8 mg/dL (8.4-10.6); Carbon Dioxide* 20 mmol/L (20-32); Creatinine* 1.4 mg/dL (0.5-1.5); Est. Creatinine Clearance* 45.59; Estimated Glomerular Filt Rate 52 ml/min
--- NOTE | 2023-01-20 07:46 | PC.NURSE ---
END OF SHIFT NOTE: PT PLEASANT AND COOPERATIVE. NAVAJO WITH NO PATEL. A&Ox3. DENIES CP, N/V. AMBULATES WITH CANE, GB, A1. VSS ON RA; HIGHEST TEMP 99.6F TEMPORAL. REDDENED AND SWOLLEN LLE. AUDIBLE EXPIRATORY WHEEZE. RIGHT WRIST IV PATENT WITH NS@125ML/HR. BED ALARM ON AND CALL LIGHT WITHIN PT?S REACH
--- NOTE | 2023-01-20 08:09 | P.IMPN_ITS ---
Progress Note: A&P Assessment and plan (1) Sepsis: Problem details: -lactate normal. mildly isolated hypotension. fluid bolus given but next check was noted to be normotensive. -CBC reviewed. procalcitonin and crp elevated. I checked CT CAB. no acute findings. likely CDIFF or his cellulitis or both. -continue azithro and rocephin and consider stopping azithro. UA and stool PCR ordered. Status: Acute (2) Cellulitis of left lower extremity: Problem details: will check for DVT continue above plan. Status: Acute (3) Hyponatremia: Problem details: - chronic, per chart review. Outpatient sodium between 126-132, likely related to alcohol use. 125 on 01/20/23. Status: Acute (4) KIA (acute kidney injury): Problem details: improving by recheck on 01/20 with IVF Status: Acute (5) Weakness: Status: Acute (6) DVT (deep venous thrombosis): Problem details: Ultrasound in February did not show a clot but he now has a left peroneal vein clot. Likely causing ongoing swelling in his left leg and foot. Status: Acute (7) Tobacco dependence: Status: Acute Subjective Date Seen: 01/20/23 Interval history: Daily Progress Note - Hospital Medicine Day #: Admit day 01/20 Reviewing H&P from 08/04 this morning. Pt has been having urinary and fecal incontinence. UA and CDIFF ordered. inflammatory markers are elevated. CT CAP reveal known rib fractures from two weeks ago. no other acute findings. left calf and de la garza are more red than usual and seems bigger than he is used to seeing. DVT has been noted in the past. Blood pressures are lower than his previous 1222 admission. Currently 93/58. Blood pressure at admission 118/68. Weight is down from last admission approximately 3.5 kilos. Hemoglobin has drifted 11.3 down to 10, however 10 seems to be his baseline. He could have been hemoconcentrated for the 11.3 No elevation in his white blood cell count. His platelets are normal. Hyponatremic at 125. Creatinine has improved from admission. His baseline seems to be 1.1-1.2 and he was up to 1.6 at admission which fits with the hemoconcentrated appearance of his CBC. He is 1.4 now. Chest x-ray on admission Mild cardiomegaly. Normal pulmonary vasculature. Clear lungs and pleural spaces. Degenerative changes in the spine. Blood cultures pending Exam Const: Vital Signs, click to edit/add: Vital Signs - 24 hr 01/20/23 00:30 01/20/23 00:53 01/20/23 03:27 Temperature 100.9 F H 99.2 F Pulse Rate [Pulse Oximeter] Pulse Rate [Right Pulse Oximeter] 103 H 94 Respiratory Rate 18 18 Blood Pressure [Le ft Arm] Blood Pressure [Ri ght Upper Arm] 113/74 118/68 Pulse Oximetry 98 97 97 Oxygen Delivery Me thod Room Air Room Air 01/20/23 04:04 01/20/23 04:52 01/20/23 04:52 Temperature 99.2 F 98.8 F Pulse Rate [Pulse Oximeter] 106 H Pulse Rate [Right Pulse Oximeter] 94 Respiratory Rate 18 18 Blood Pressure [Le ft Arm] 93/58 L Blood Pressure [Ri ght Upper Arm] 118/68 Pulse Oximetry 97 97 Oxygen Delivery Me thod Room Air Room Air Labs Labs: Laboratory Results - last 24 hr 01/20/23 01/20/23 01/20/23 00:50 01:05 06:56 WBC 8.50 8.89 RBC 3.48 L 3.09 L Hgb 11.3 L 10.0 L Hct 33.0 L 29.0 L MCV 95 94 MCH 33 32 MCHC 34 35 RDW Coeff of Eloy 12.7 12.7 Plt Count 186 170 Neut % (Auto) 86.2 H 82.8 H Lymph % (Auto) 5.6 L 8.4 L Stafford % (Auto) 7.6 8.4 Eos % (Auto) 0.0 0.0 Baso % (Auto) 0.1 0.1 Neut # (Auto) 7.30 H 7.40 H Lymph # (Auto) 0.50 L 0.70 L Stafford # (Auto) 0.60 0.70 Eos # (Auto) 0.00 0.00 Baso # (Auto) 0.01 0.01 Abs Immat Gran (auto) 0.04 0.03 Imm/Tot Granulo (auto) 0.5 0.3 Sodium 126 L 125 L Potassium 4.1 3.7 Chloride 92 L 94 L Carbon Dioxide 23 20 Anion Gap 11 11 BUN 28 29 Creatinine 1.6 H 1.4 Estimated Creat Clear 39.89 45.59 Estimated GFR 45 52 Glucose 106 Lactate 1.6 Calcium 9.1 8.8 Total Bilirubin 0.8 Direct Bilirubin 0.1 AST 52 H ALT 33 Alkaline Phosphatase 84 Total Protein 7.8 Albumin 4.4 SARS-CoV-2 (PCR) Negative SARS-CoV-2 Influenza Type A (PCR) Negative PCR FLU A Influenza Type B (PCR) Negative PCR FLU B
[2023-01-20 08:14] LABS: Glucose* 111 mg/dL (60-115)
--- NOTE | 2023-01-20 08:37 | CRLHL7_ITS ---
For Patients: As a result of the Century Cures Act, medical imaging exams and procedure reports are released immediately into your electronic medical record. You may view this report before your referring provider. If you have questions, please contact your health care provider. INDICATION: Chest pain. TECHNIQUE: CT chest PE was acquired with 100 cc Omnipaque 350 IV contrast. COMPARISON: None. FINDINGS: Heart and vasculature: Contrast opacification of the pulmonary arterial tree is adequate. No sign of pulmonary embolism. Moderate severe atherosclerotic coronary calcifications. Left ventricular enlargement. Enlarged caliber of the pulmonary trunk measuring 3.4 cm (47:8). Borderline dilated mid ascending thoracic aorta at 4.1 cm.* *https://pubmed.ncbi.nlm.nih.gov/00124794 Lungs and pleura: No suspicious nodules or infiltrates. No pleural effusions, pleural thickening, or pneumothorax. Lymph nodes/mediastinum: No mediastinal, hilar, or axillary adenopathy. Chest wall: No masses. Upper abdomen: No acute or significant findings. Bones: Unremarkable for age. IMPRESSION: No evidence of pulmonary embolism. Dilated pulmonary trunk. Differential diagnostic considerations include pulmonary hypertension. Moderate atherosclerotic coronary calcifications and left ventricular enlargement. Borderline dilated ascending thoracic aorta. Please note that all CT scans at this facility use dose modulation, iterative reconstruction, and/or weight-based dosing when appropriate to reduce radiation dose to as low as reasonably achievable. Dictated by Yonas Swan MD @ 01/20/2023 10:09:29 AM (Electronically Signed)
--- NOTE | 2023-01-20 08:38 | CRLHL7_ITS ---
For Patients: As a result of the Century Cures Act, medical imaging exams and procedure reports are released immediately into your electronic medical record. You may view this report before your referring provider. If you have questions, please contact your health care provider. INDICATION: Fever, weakness. TECHNIQUE: CT abdomen and pelvis acquired with 95 cc Isovue 370 IV contrast. COMPARISON: None. FINDINGS: Lower chest: Unremarkable. Liver: Normal in size. Mild diffuse hepatic steatosis. No focal liver lesion. Gallbladder and bile ducts: Unremarkable. No stones or inflammation. No biliary dilatation. Pancreas: Unremarkable. No mass or inflammation. Spleen: Unremarkable. Normal in size. No masses. Adrenal glands: Unremarkable. No nodules. Kidneys: Unremarkable. No suspicious masses, stones, or hydronephrosis. GI tract: Unremarkable. Normal in caliber. No sign of mass or inflammation. Normal appendix. Vasculature: Abdominal aorta is normal in caliber with atherosclerotic calcifications.. Mesenteric arteries are patent. Lymph nodes: Mildly prominent left external iliac lymph nodes measuring 1 cm in short axis. Additionally, mildly enlarged left inguinal lymph node measuring up to 1.3 cm in short axis. Otherwise unremarkable. Peritoneum/Abdominal Wall: Unremarkable. No sign of mass or infiltration. No free air or significant free fluid. Pelvis: Dystrophic prostate calcifications. Otherwise unremarkable. Bones: Possible nondisplaced fracture involving the right posterior 12th rib. Additional nondisplaced fracture of the left 7th rib. Severe multilevel degenerative disc disease involving the visualized thoracic and lumbar spine with findings of diffuse idiopathic skeletal hyperostosis. IMPRESSION: 1. Nondisplaced left 7th rib fracture with additional possible nondisplaced right posterior 12th rib fracture. Otherwise, no acute abnormality identified in the abdomen or pelvis. 2. Nonspecific mild left inguinal and external iliac lymphadenopathy. Please note that all CT scans at this facility use dose modulation, iterative reconstruction, and/or weight-based dosing when appropriate to reduce radiation dose to as low as reasonably achievable. Dictated by Gretel Ford MD @ 01/20/2023 10:23:42 AM (Electronically Signed)
[2023-01-20] MEDS: ACETAMINOPHEN 325 MG TABLET PO (08:40)
[2023-01-20] MEDS: 0.9 % SODIUM CHLORIDE 1000 ml 1,000 ML 500 ML IV (08:40)
[2023-01-20 08:43] LABS: Troponin I* 0.03 ng/mL (0.01-0.04)
[2023-01-20 08:48] LABS: C Reactive Protein* 18.2 mg/dL (0.5-1.0); Procalcitonin* 2.06 ng/mL (<0.50)
[2023-01-20 08:49] LABS: Appearance Urine Clear (Clear); Bilirubin Urine Negative (Negative); Blood Urine Trace-lysed (Negative); Color Urine Dark yellow (Yellow); Glucose Urine Negative (Negative); Ketones Urine Trace (Negative); Leukocyte Esterase Urine Negative (Negative); Nitrite Urine Negative (Negative); Protein Urine 2+ (Negative); Specific Gravity Urine 1.025 (1.000-1.030); Urobilinogen Urine 0.2 (0.2-1.0)
[2023-01-20 09:16] LABS: Bacteria Urine Few; RBC Urine 0-2 (0-2); Squamous Epithelial Cell Urine Few (None-Few); WBC Urine 0-2 (0-5)
--- NOTE | 2023-01-20 11:17 | NUTR.NU ---
RDN with Positive MST. Pt reported unsure of weight loss and poor appetite. Pt admitted with N, chills, diarrhea. In ER, diagnosis of cellulitis. Started on ATBx. Weight history by chart review . 04/06/2022 228 Today 01/20/2023 218. 4.3% weight loss in 10 months is not significant. Patient states appetite was decreased for two days prior to admission. Thinks it was related to the phlegm he was coughing up. Order an german muffin for breakfast and ate it all. Feels OK. Plans to order L. No nutritional concerns or interventions needed at this time. RDN will continue to follow per protocol.
[2023-01-20] MEDS: OMEPRAZOLE 20 MG CAPSULE DR 40 MG PO (14:57)
[2023-01-20] MEDS: LORATADINE 10 MG TABLET PO (14:57)
[2023-01-20] MEDS: APIXABAN 5 MG TABLET PO ×2 (14:57→20:05)
--- NOTE | 2023-01-20 15:36 | PC.NURSE ---
PATIENT HAD INCONTINENT URINE AND STOOL THIS AM. PATIENT REPORTS THIS IS NOT NORMAL FOR HIM. UP THIS AM WITH CANE AND GAIT BELT. PATIENT WAS UNSTEADY AND REPORTS HE USES A WALKER OCCASIONALLY AT HOME. WALKER BROUGHT IN TO ROOM AND PATIENT MORE STEADY WITH AMBULATION. WORKED WITH PHYSICAL THERAPY. PATIENT HAD INTERMITTENTLY PRODUCTIVE COUGH. LEFT LE REDDENED AND TENDER TO TOUCH. DENIES N/V BUT HAS DECREASED APPETITE.
[2023-01-20] MEDS: MONTELUKAST 10 MG TABLET PO (20:05)
[2023-01-20] MEDS: SODIUM CHLORIDE 0.9 % (FLUSH) 10 ML SYRINGE 5 ML IVF (20:08)
--- NOTE | 2023-01-20 22:41 | PC.NURSE ---
Shift [id number]- Patient denies pain unless leg is touched. Left leg is diffusely pink below knee, ulceration/bruise to lateral side of right knee. He is up with walker, assist of 1, refuses gait belt. Appetite is poor. He feels his strength has improved today/tonight.
[2023-01-21] VITALS (7 sets, daily range): BP systolic 144–196; BP diastolic 65–96; PULSE 66–90; RESP 16–22; TEMP 36.1–37.4; O2SAT 95–100
[2023-01-21] MEDS: cefTRIAXone 2 GM in 0.9 % SODIUM CHLORIDE Mini-bag 100 ML IVPB (01:04)
[2023-01-21] MEDS: 0.9 % SODIUM CHLORIDE 1000 ml 1,000 ML 125 ML IV ×3 (01:08→14:13)
[2023-01-21] MEDS: ACETAMINOPHEN 325 MG TABLET PO ×3 (04:40→21:36)
[2023-01-21] MEDS: AZITHROMYCIN 250 MG TABLET 500 MG PO (04:41)
[2023-01-21] MEDS: OMEPRAZOLE 20 MG CAPSULE DR 40 MG PO (07:00)
[2023-01-21 07:39] LABS: HCO3 VBG 22 mmol/L (21-28); Hematocrit 27.1 % (37.0-53.0); Hemoglobin* 9.3 gm/dL (13.5-17.5); Immature Granulocytes Abs Auto 0.01 K/uL (0.00-0.30); Immature Granulocytes Pct Auto 0.2 %; Lymphocytes Percent Auto 14.6 % (20-44); Mean Corpuscular HGB Conc 34 gm/dL (32-36); Mean Corpuscular Hemoglobin 33 pg (26-34); Mean Corpuscular Volume 95 fL (80-100); Neutrophils Absolute Auto 4.64 K/uL (1.7-7.0); Neutrophils Percent Auto 71.2 % (42.0-72.0); PCO2 VBG 35 mmHG (40-50); Platelet Count* 161 K/uL (140-440); RDW Coefficient of Variation % 12.9 % (11.5-15.5); Red Blood Count 2.86 m/uL (4.30-5.90); White Blood Count* 6.51 K/uL (4.50-11.00)
[2023-01-21 07:43] LABS: Slide Review Reflex No
--- NOTE | 2023-01-21 07:49 | PC.NURSE ---
Independent in room. Tylenol given for chronic naggy headache. 2 Units of blood given without complication.
--- NOTE | 2023-01-21 07:54 | PC.NURSE ---
Pt pleasant and cooperative. Slept was broken and light, per pt that is not unusual. Tylenol given for slight headache, pt then fell asleep and when woke for a.m. labs stated I got some real sleep!. Stands at bedside to use urinal, steady on feet. No other complaint from pt.
[2023-01-21 08:16] LABS: Albumin* 3.6 g/dL (3.3-5.0); Chloride* 101 mmol/L (96-114)
[2023-01-21 08:17] LABS: Potassium* 3.4 mmol/L (3.6-5.1); Sodium* 128 mmol/L (135-149)
[2023-01-21 08:19] LABS: Creatinine* 0.9 mg/dL (0.5-1.5); Est. Creatinine Clearance* 63.83; Estimated Glomerular Filt Rate 89 ml/min
[2023-01-21 08:20] LABS: Alanine Aminotransferase* 28 U/L (4-50); Alkaline Phosphatase* 69 U/L (40-150); Anion Gap 7 mEq/L (7-15); Aspartate Amino Transferase* 47 U/L (12-35); Bilirubin Direct* 0.1 mg/dL (0.0-0.5); Bilirubin Total* 0.5 mg/dL (0.1-1.5); Blood Urea Nitrogen* 19 mg/dL (7-30); Carbon Dioxide* 20 mmol/L (20-32); Glucose* 106 mg/dL (60-115); Phosphorus* 2.7 mg/dL (2.5-4.5); Total Protein* 6.5 g/dL (6.0-8.3)
[2023-01-21 08:21] LABS: Calcium* 8.4 mg/dL (8.4-10.6)
[2023-01-21 08:32] LABS: Procalcitonin* 1.21 ng/mL (<0.50)
[2023-01-21 08:35] LABS: C Reactive Protein* 16.3 mg/dL (0.5-1.0)
[2023-01-21] MEDS: APIXABAN 5 MG TABLET PO (09:17)
[2023-01-21] MEDS: LORATADINE 10 MG TABLET PO (09:17)
[2023-01-21] MEDS: ALBUTEROL INHALER 2 PUFF IH ×2 (09:33→19:54)
[2023-01-21] MEDS: POTASSIUM BICARB 25 MEQ EFFERVESCENT TAB PO ×3 (11:05→20:28)
--- NOTE | 2023-01-21 13:21 | CRLHL7_ITS ---
For Patients: As a result of the Century Cures Act, medical imaging exams and procedure reports are released immediately into your electronic medical record. You may view this report before your referring provider. If you have questions, please contact your health care provider. INDICATION: Leg pain and swelling. TECHNIQUE: Ultrasound venous duplex lower left extremity. Compression venous exam was performed using marinelli-scale, color Doppler, and spectral Doppler analysis. COMPARISON: 04/06/2022. FINDINGS: Deep veins: Sonographic imaging demonstrates the left common femoral, deep femoral, superficial femoral, popliteal, posterior tibial, peroneal and the contralateral right common femoral veins to be fully compressible with normal color Doppler blood flow. Superficial veins: Greater saphenous vein is fully compressible. No popliteal cyst. IMPRESSION: Normal left lower extremity venous ultrasound, no sign of deep venous thrombosis. Dictated by Hubert Jim MD @ 01/22/2023 2:25:29 AM (Electronically Signed)
[2023-01-21 16:46] LABS: C.Difficile Negative (Negative); CDIFFEPI 027 PRESUMPTIVE NEGATIVE (Negative)
--- NOTE | 2023-01-21 17:35 | P.IMPN_ITS ---
Progress Note: A&P Assessment and plan (1) Cellulitis of left lower extremity: Problem details: - checked ultrasound for DVT today and that was negative. - continues to have erythema and warmth of the left lower extremity without improvement. He has only been on ceftriaxone for about 16 hours. Will discontinue azithromycin and add vancomycin. Continue to monitor. I recommended elevation. Status: Acute (2) KIA (acute kidney injury): Problem details: Resolved. Stop IV fluids. Status: Resolved (3) Hypertension: Problem details: BP markedly elevated. Creatinine has normalized. Restart outpatient regimen of labetalol and losartan. Status: Chronic (4) Sepsis: Problem details: -suspect this is secondary to left lower extremity cellulitis. Sepsis has resolved. Status: Resolved (5) Hyponatremia: Problem details: - chronic, per chart review. Outpatient sodium between 126-132, likely related to alcohol use. 128 today. Status: Acute (6) Anemia: Problem details: - normocytic, appears chronic per chart review (outpatient hemoglobin 10-12). PCP follow-up Status: Chronic (7) Hypokalemia: Problem details: Mild, asymptomatic, oral replacement today. Recheck in the morning. Status: Acute Plan - VTE prophylaxis with low-dose nightly Lovenox. Patient does have a history of DVT, but stopped apixaban 6 months ago after discussion with his primary care provider. Left lower extremity Doppler ultrasound negative for DVT today. Discontinue apixaban. Subjective Time Seen by Provider: 12:52 Date Seen: 01/21/23 Interval history: Jeferson complains of feeling a bit worse today. He continues to feel feverish and occasionally have sweats. He says his left lower leg is still very tender and red and he does not feel that it has improved. He says it feels just like a year ago when he was admitted with a cellulitis and had a DVT at that time. Exam Narrative: Exam Narrative: General: No acute distress. Awake, alert, oriented x3. No pallor. No jaundice. Oropharynx: Clear. Mucous membranes moist. Cardiovascular: Regular rate and rhythm. No murmurs, gallops, or rubs. Respiratory: Clear to auscultation bilaterally. No wheezes or crackles. Abdomen: Bowel sounds present. Soft, nondistended, nontender. Extremities: Right lower extremity is without edema. Left lower extremity has 2+ pitting edema, circumferential induration, calor, and tenderness without any open areas or blisters or abrasions. No drainage. The foot and thigh are spared. Const: Vital Signs, click to edit/add: Vital Signs - 24 hr 01/20/23 19:05 01/20/23 23:00 01/20/23 23:00 Temperature 98.5 F Pulse Rate [Pulse Oximeter] 86 Respiratory Rate 16 18 Blood Pressure [Le ft Arm] 155/75 H Blood Pressure [Ri ght Arm] Pulse Oximetry 100 98 97 Oxygen Delivery Sd thod Room Air Room Air 01/20/23 23:00 01/21/23 04:21 01/21/23 09:19 Temperature 98.2 F 98.3 F 96.9 F L Pulse Rate [Pulse Oximeter] 83 87 70 Respiratory Rate 18 18 20 Blood Pressure [Le ft Arm] 158/96 H Blood Pressure [Ri ght Arm] 171/77 H 185/87 H Pulse Oximetry 97 98 96 Oxygen Delivery Sd thod Room Air Room Air Room Air 01/21/23 10:24 01/21/23 10:24 01/21/23 11:00 Temperature 97.9 F Pulse Rate [Pulse Oximeter] 66 Respiratory Rate 18 20 Blood Pressure [Le ft Arm] Blood Pressure [Ri ght Arm] 176/86 H Pulse Oximetry 96 96 100 [facility] 01/21/23 15:00 01/21/23 15:00 01/21/23 15:00 Temperature 98.1 F Pulse Rate [Pulse Oximeter] 73 Respiratory Rate 18 Blood Pressure [Le ft Arm] Blood Pressure [Ri ght Arm] 190/94 H Pulse Oximetry 100 100 95 [facility] Labs Labs: Laboratory Results - last 24 hr 01/21/23 01/21/23 07:14 15:46 WBC 6.51 RBC 2.86 L Hgb 9.3 L Hct 27.1 L MCV 95 MCH 33 MCHC 34 RDW Coeff of Eloy 12.9 Plt Count 161 Neut % (Auto) 71.2 Lymph % (Auto) 14.6 L [place] % (Auto) 14.0 H Eos % (Auto) 0.0 Baso % (Auto) 0.0 Neut # (Auto) 4.64 Lymph # (Auto) 1.00 [place] # (Auto) 0.90 Eos # (Auto) 0.00 Baso # (Auto) 0.00 Abs Immat Gran (auto) 0.01 Imm/Tot Granulo (auto) 0.2 VBG pH 7.420 VBG pCO2 35 L VBG pO2 100.0 H VBG HCO3 22 Sodium 128 L Potassium 3.4 L Chloride 101 Carbon Dioxide 20 Anion Gap 7 BUN 19 Creatinine 0.9 Estimated Creat Clear 63.83 Estimated GFR 89 Glucose 106 Calcium 8.4 Phosphorus 2.7 Total Bilirubin 0.5 Direct Bilirubin 0.1 AST 47 H ALT 28 Alkaline Phosphatase 69 C-Reactive Protein 16.3 H Total Protein 6.5 Albumin 3.6 Procalcitonin 1.21 H Stl C. diff Tox B Gene Negative Stl C. diff [id number] PRESUMPTIVE NEGATIVE
--- NOTE | 2023-01-21 18:10 | PC.NURSE ---
shift note: pt up SBA/walker. pt IV patent. LS clr this afternoon. audible insp/exp wheezing this a.m pt received prn inhaler. sats 98-100% RA. Pt states sinuses feel plugged and he has difficulty hearing out of lt ear. Pt states he had his ears cleaned at clinic recently. Pt states lt l/e feels tight. Rt mid calf with small scabbed area that appears intact with no drainage. Aqua K applied to rt l/e for comfort. PP+ bilat. Pt had moderate soft formed BM. Cdiff test sent. IV patent.
[2023-01-21] MEDS: FUROSEMIDE 10 MG/ML inj 20 MG IVP (20:28)
[2023-01-21] MEDS: MONTELUKAST 10 MG TABLET PO (21:35)
[2023-01-21] MEDS: LOSARTAN POTASSIUM 50 MG TABLET 100 MG PO (21:35)
[2023-01-21] MEDS: LABETALOL HCL 100 MG TABLET 200 MG PO (21:35)
[2023-01-21] MEDS: SODIUM CHLORIDE 0.9 % (FLUSH) 10 ML SYRINGE 5 ML IVF (21:36)
[2023-01-22] MEDS: SODIUM CHLORIDE 0.9 % (FLUSH) 10 ML SYRINGE 5 ML IVF ×3 (02:11→21:15)
[2023-01-22] MEDS: cefTRIAXone 2 GM in 0.9 % SODIUM CHLORIDE Mini-bag 100 ML IVPB (02:11)
[2023-01-22] MEDS: 0.9 % SODIUM CHLORIDE 250 ml IV (02:11)
[2023-01-22 03:00] VITALS: BP 157/66; PULSE 75; RESP 20; TEMP 36.8; O2SAT 96
[2023-01-22] MEDS: ALBUTEROL INHALER 2 PUFF IH ×2 (03:41→20:47)
[2023-01-22] MEDS: ACETAMINOPHEN 325 MG TABLET PO ×2 (03:44→20:48)
--- NOTE | 2023-01-22 06:23 | PC.NURSE ---
Pt pleasant and cooperative. Beginning of shift pt was audibly wheezing, Dr. Escalante notified, Fluids stopped and Furosemide and K+ ordered. Educated pt on increased urine output to be expected for next 4-6 hours. Up at bedside to use urinal independently. Tylenol given per pt for generalized aches, not rating as pain. Pt had difficulty sleeping, discussed melatonin and refused. @0600 while rounding on pt, pt asked about melatonin. Stated that now would not be an appropriate time to take but would put on JUL for Monday HS PRN. Pt agreed with plan.
[2023-01-22 07:21] LABS: Eosinophils Absolute Auto 0.01 K/uL (0.00-0.50); Eosinophils Percent Auto 0.1 % (0.0-7.0); Hematocrit 26.3 % (37.0-53.0); Immature Granulocytes Abs Auto 0.02 K/uL (0.00-0.30); Immature Granulocytes Pct Auto 0.3 %; Lymphocytes Percent Auto 18.6 % (20-44); Mean Corpuscular HGB Conc 34 gm/dL (32-36); Mean Corpuscular Hemoglobin 32 pg (26-34); Mean Corpuscular Volume 94 fL (80-100); Monocytes Percent Auto 15.1 % (0.0-11.0); Neutrophils Absolute Auto 4.99 K/uL (1.7-7.0); Neutrophils Percent Auto 65.9 % (42.0-72.0); Platelet Count* 166 K/uL (140-440); RDW Coefficient of Variation % 12.5 % (11.5-15.5); Red Blood Count 2.79 m/uL (4.30-5.90); White Blood Count* 7.57 K/uL (4.50-11.00)
[2023-01-22 07:22] LABS: Slide Review Reflex No
[2023-01-22 07:37] LABS: Chloride* 99 mmol/L (96-114)
[2023-01-22 07:38] LABS: Potassium* 3.2 mmol/L (3.6-5.1); Sodium* 129 mmol/L (135-149)
[2023-01-22 07:40] LABS: Creatinine* 0.9 mg/dL (0.5-1.5); Est. Creatinine Clearance* 63.83; Estimated Glomerular Filt Rate 89 ml/min
[2023-01-22 07:41] LABS: Anion Gap 7 mEq/L (7-15); Blood Urea Nitrogen* 16 mg/dL (7-30); Calcium* 8.7 mg/dL (8.4-10.6); Carbon Dioxide* 23 mmol/L (20-32); Glucose* 127 mg/dL (60-115)
[2023-01-22 07:44] LABS: C Reactive Protein* 8.2 mg/dL (0.5-1.0)
[2023-01-22 08:38] VITALS: BP 160/98; PULSE 67; RESP 18; TEMP 36.6; O2SAT 98
[2023-01-22] MEDS: OMEPRAZOLE 20 MG CAPSULE DR 40 MG PO (08:39)
[2023-01-22] MEDS: LABETALOL HCL 100 MG TABLET 200 MG PO ×2 (08:40→20:48)
[2023-01-22] MEDS: LORATADINE 10 MG TABLET PO (08:40)
[2023-01-22 12:49] VITALS: BP 170/77; PULSE 67; RESP 18; TEMP 36.9; O2SAT 97
[2023-01-22] MEDS: FUROSEMIDE 20 MG TABLET PO (14:26)
[2023-01-22 16:32] VITALS: BP 170/76; PULSE 68; RESP 18; TEMP 37.1; O2SAT 97
--- NOTE | 2023-01-22 17:24 | PM.IMPN1 ---
Progress Note: A&P Assessment and plan (1) Cellulitis of left lower extremity: Problem details: - checked ultrasound for DVT 01/21/2023 and that was negative. - noticeable improvement overnight. Unclear if this is because he has now been on 48 hours of ceftriaxone or if this was the addition of vancomycin. Continue current therapy. Continue PT and OT. Anticipate that he may be ready for discharge tomorrow or the next day. Has had a reaction to Bactrim and so he will likely need doxycycline for home going. Status: Acute (2) Hypertension: Problem details: BP markedly elevated. Creatinine has normalized. Restart outpatient regimen of labetalol and losartan. Status: Chronic (3) Hyponatremia: Problem details: - chronic, per chart review. Outpatient sodium between 126-132, likely related to alcohol use. 129 today. Status: Acute (4) Anemia: Problem details: - normocytic, appears chronic per chart review (outpatient hemoglobin 10-12). PCP follow-up. Status: Chronic (5) Hypokalemia: Problem details: Oral replacement today and recheck in the morning. Also check magnesium. Status: Acute Plan - VTE prophylaxis with low-dose nightly Lovenox. - mild volume overload likely now that he is mobilizing fluid from the lower extremity. He was diuresed with furosemide last night, give smaller dose of oral furosemide this morning and monitor. Hypokalemia is likely iatrogenic from furosemide. Replace orally. Anticipate that he will likely need more replacement tomorrow after furosemide dose this morning. Subjective Time Seen by Provider: 09:58 Date Seen: 01/22/23 Interval history: Jeferson feels a bit better. He still has fatigue. Did not complain of fever or chills. He agrees that his leg looks less red and less swollen today. He did have some wheezing overnight for which he was given a dose of furosemide and notes that he had a lot of urine output after that. Exam Narrative: Exam Narrative: General: No acute distress. Awake, alert, oriented. No pallor. No jaundice. Oropharynx: Clear. Mucous membranes moist. No JVD. Cardiovascular: Regular rate and rhythm. No murmurs, gallops, or rubs. Respiratory: Upper airway wheeze without lower airway wheezes. Clear to auscultation bilaterally. No crackles. Abdomen: Bowel sounds present. Soft, nondistended, nontender. Extremities: Right lower extremity is without edema. Left lower extremity has 2+ pitting edema, however it is somewhat improved from yesterday, tenderness is unchanged. Calor is improving as is erythema. Const: Vital Signs, click to edit/add: Vital Signs - 24 hr 01/21/23 19:25 01/21/23 23:00 01/21/23 23:00 Temperature 99.3 F Pulse Rate [Pulse Oximeter] 90 77 Respiratory Rate 22 16 Blood Pressure [Le ft Arm] 196/96 H Blood Pressure [Ri ght Arm] Pulse Oximetry 99 96 Oxygen Delivery Me thod Room Air Room Air 01/21/23 23:00 01/22/23 03:00 01/22/23 08:38 Temperature 99.0 F 98.3 F Pulse Rate [Pulse Oximeter] 77 75 Respiratory Rate 16 20 Blood Pressure [Le ft Arm] Blood Pressure [Ri ght Arm] 144/65 H 157/66 H Pulse Oximetry 96 96 98 Oxygen Delivery Me thod Room Air Room Air Room Air 01/22/23 08:38 01/22/23 12:49 01/22/23 16:32 Temperature 97.9 F 98.5 F Pulse Rate [Pulse Oximeter] 67 67 Respiratory Rate 18 18 Blood Pressure [Le ft Arm] Blood Pressure [Ri ght Arm] 160/98 H 170/77 H Pulse Oximetry 98 97 97 Oxygen Delivery Me thod Room Air Room Air Room Air 01/22/23 16:32 Temperature 98.8 F Pulse Rate [Pulse Oximeter] 68 Respiratory Rate 18 Blood Pressure [Le ft Arm] Blood Pressure [Ri ght Arm] 170/76 H Pulse Oximetry 97 Oxygen Delivery Me thod Room Air Labs Labs: Laboratory Results - last 24 hr 01/22/23 06:52 WBC 7.57 RBC 2.79 L Hgb 9.0 L Hct 26.3 L MCV 94 MCH 32 MCHC 34 RDW Coeff of Eloy 12.5 Plt Count 166 Neut % (Auto) 65.9 Lymph % (Auto) 18.6 L [place] % (Auto) 15.1 H Eos % (Auto) 0.1 Baso % (Auto) 0.0 Neut # (Auto) 4.99 Lymph # (Auto) 1.40 [place] # (Auto) 1.10 H Eos # (Auto) 0.01 Baso # (Auto) 0.00 Abs Immat Gran (auto) 0.02 Imm/Tot Granulo (auto) 0.3 Sodium 129 L Potassium 3.2 L Chloride 99 Carbon Dioxide 23 Anion Gap 7 BUN 16 Creatinine 0.9 Estimated Creat Clear 63.83 Estimated GFR 89 Glucose 127 H Calcium 8.7 C-Reactive Protein 8.2 H
[2023-01-22 19:44] VITALS: PULSE 72; RESP 18; O2SAT 98
[2023-01-22] MEDS: POTASSIUM BICARB 25 MEQ EFFERVESCENT TAB PO ×3 (19:48→22:59)
[2023-01-22] MEDS: ENOXAPARIN 40 MG/0.4 ML INJ SUBCUT (20:47)
[2023-01-22] MEDS: LOSARTAN POTASSIUM 50 MG TABLET 100 MG PO (20:48)
[2023-01-22] MEDS: MONTELUKAST 10 MG TABLET PO (20:48)
[2023-01-22 23:00] VITALS: BP 167/75; PULSE 74; RESP 20; TEMP 36.5; O2SAT 96
[2023-01-23] MEDS: cefTRIAXone 2 GM in 0.9 % SODIUM CHLORIDE Mini-bag 100 ML IVPB (01:25)
[2023-01-23] MEDS: 0.9 % SODIUM CHLORIDE 250 ml IV (01:25)
[2023-01-23] MEDS: MELATONIN 3 MG TABLET PO (02:05)
[2023-01-23 03:00] VITALS: PULSE 70; RESP 18; TEMP 36.6; O2SAT 96
[2023-01-23 06:28] LABS: Basophils Absolute Auto 0.01 K/uL (0.00-0.30); Basophils Percent Auto 0.1 % (0.0-3.0); Eosinophils Absolute Auto 0.04 K/uL (0.00-0.50); Eosinophils Percent Auto 0.5 % (0.0-7.0); Hematocrit 26.6 % (37.0-53.0); Hemoglobin* 9.2 gm/dL (13.5-17.5); Immature Granulocytes Abs Auto 0.04 K/uL (0.00-0.30); Immature Granulocytes Pct Auto 0.5 %; Lymphocytes Absolute Auto 1.86 K/uL (0.90-2.90); Lymphocytes Percent Auto 25.2 % (20-44); Mean Corpuscular HGB Conc 35 gm/dL (32-36); Mean Corpuscular Hemoglobin 33 pg (26-34); Mean Corpuscular Volume 94 fL (80-100); Monocytes Percent Auto 17.8 % (0.0-11.0); Neutrophils Absolute Auto 4.11 K/uL (1.7-7.0); Neutrophils Percent Auto 55.9 % (42.0-72.0); Platelet Count* 191 K/uL (140-440); RDW Coefficient of Variation % 12.5 % (11.5-15.5); Red Blood Count 2.83 m/uL (4.30-5.90); White Blood Count* 7.37 K/uL (4.50-11.00)
[2023-01-23 06:33] LABS: Slide Review Reflex No
--- NOTE | 2023-01-23 06:33 | PC.NURSE ---
Pt slept most of night, up with sig. other to BR or sitting at bedside. See MAR for medication administration.
[2023-01-23 06:34] LABS: Chloride* 99 mmol/L (96-114); Potassium* 3.4 mmol/L (3.6-5.1); Sodium* 131 mmol/L (135-149)
[2023-01-23 06:37] LABS: Creatinine* 0.9 mg/dL (0.5-1.5); Est. Creatinine Clearance* 63.83; Estimated Glomerular Filt Rate 89 ml/min
[2023-01-23 06:38] LABS: Anion Gap 6 mEq/L (7-15); Blood Urea Nitrogen* 13 mg/dL (7-30); Carbon Dioxide* 26 mmol/L (20-32); Glucose* 105 mg/dL (60-115); Magnesium* 1.4 mg/dL (1.5-2.6)
--- NOTE | 2023-01-23 06:39 | PC.NURSE ---
Pt pleasant and conversational. Up at bedside to use urinal independently. Slept well without complaint. Denies pain.
[2023-01-23 08:11] VITALS: BP 176/82; PULSE 72; RESP 16; TEMP 36.4; O2SAT 96
[2023-01-23] MEDS: OMEPRAZOLE 20 MG CAPSULE DR 40 MG PO (08:13)
[2023-01-23] MEDS: SODIUM CHLORIDE 0.9 % (FLUSH) 10 ML SYRINGE 5 ML IVF (08:20)
[2023-01-23] MEDS: LORATADINE 10 MG TABLET PO (08:20)
[2023-01-23] MEDS: LABETALOL HCL 100 MG TABLET 200 MG PO (08:20)
[2023-01-23 09:59] VITALS: O2SAT 96
--- NOTE | 2023-01-23 14:23 | P.DS_ITS ---
"DS: Providers Provider Time Seen by Provider: 11:00 Date Seen: 01/23/23 Date of admission: 01/20/23 03:56 Primary care physician: Rai Rosas MD Admitting Clinician: Juan Carlos Finn MD Consults: 01/20/23 04:32 Consult to Occupational Therapy [CONS] Routine Comment: Reason(s) for OT Consult:: ADLs Prior to Discharge Any Restrictions?:: No Restrictions Consult to Physical Therapy [CONS] Routine Comment: Reason(s) for PT Consult:: Evaluate and Treat Any Restrictions?:: No Restrictions 01/20/23 05:29 Consult to Physical Therapy [CONS] Routine Comment: Reason(s) for PT Consult:: Weakness Any Restrictions?:: No Restrictions Attending Physician on discharge: Latoya Dowell MD Date of Discharge: 01/23/23 DS: Diagnosis Discharge Diagnosis (1) Tobacco dependence: Status: Chronic (2) Hypokalemia: Status: Acute Problem details: Recheck as outpatient (3) Anemia: Status: Chronic Problem details: - normocytic, appears chronic per chart review (outpatient hemoglobin 10-12). PCP follow-up. (4) Hyponatremia: Status: Acute Problem details: - chronic, per chart review. Outpatient sodium between 126-132, likely related to alcohol use. 131 today. (5) KIA (acute kidney injury): Status: Resolved Problem details: Resolved. (6) Hypertension: Status: Chronic Problem details: BP markedly elevated. Creatinine has normalized. Continue outpatient regimen of labetalol and losartan. (7) Sepsis: Status: Resolved Problem details: -suspect this is secondary to left lower extremity cellulitis. Sepsis has resolved. (8) Weakness: Status: Resolved (9) Nausea: Status: Resolved (10) Cellulitis of left lower extremity: Status: Acute Problem details: - checked ultrasound for DVT 01/21/2023 and that was negative. - noticeable improvement overnight. Unclear if this is because he has now been on 48 hours of ceftriaxone or if this was the addition of vancomycin. Continue current therapy. Continue PT and OT. Anticipate that he may be ready for discharge tomorrow or the next day. Has had a reaction to Bactrim and so he will likely need doxycycline for home going. DS: Summary Hospital Course Hospital Course: This is a 77-year-old male with a history of cellulitis and DVT 1 year ago for which he had completed apixaban therapy who presented with similar symptoms. He was admitted for weakness, subjective fevers and chills, decreased oral intake after having an ear lavage. He also he had a left tender, erythematous and swollen leg. He was admitted on ceftriaxone and IV fluids for concerns of acute kidney injury and sepsis. By the next hospital day he had had a large loose stool and was checked for C diff which was negative. Recent CT chest abdomen and pelvis were also obtained which had no acute findings. Due to leg not improving on ceftriaxone, he was also started on vancomycin with good results. Although he was hyponatremic, he is chronically hyponatremic and this was not much different than baseline. KIA improved with fluids, but then he developed volume overload and was somewhat wheezy during the night. He was given Lasix for that with good results. His renal function is now back to baseline. He he has been working with PT and OT and has improved back to his baseline function. Sodium at discharge is 131. Potassium is 3.4. He is feeling better today and back to his baseline; leg is also improved. Transitioned to oral doxycycline for home going. Please consider a hemoglobin and BMP as an outpatient. Time Spent with Patient Time attestation: Total time spent providing and/or coordinating discharge services: Exam Narrative: Exam Narrative: General: No acute distress. Awake, alert, oriented. Cardiovascular: Regular rate and rhythm. No murmurs, gallops, or rubs. Respiratory: Clear to auscultation bilaterally. No crackles or wheezes. Abdomen: Bowel sounds present. Soft, nondistended, nontender. Extremities: Right lower extremity is without edema. Left lower extremity has 2+ pitting edema, tenderness is unchanged. Calor and erythema continue to improve. Const: Vital Signs, click to edit/add: Vital Signs - 24 hr 01/22/23 16:32 01/22/23 16:32 01/22/23 19:44 Temperature 98.8 F Pulse Rate [Pulse Oximeter] 68 72 Respiratory Rate 18 18 Blood Pressure [Le ft Arm] Blood Pressure [Ri ght Arm] 170/76 H Pulse Oximetry 97 97 98 Oxygen Delivery Me thod Room Air Room Air Room Air 01/22/23 23:00 01/22/23 23:00 01/22/23 23:00 Temperature 97.7 F Pulse Rate [Pulse Oximeter] 74 74 Respiratory Rate 20 20 Blood Pressure [Le ft Arm] 167/75 H Blood Pressure [Ri ght Arm] Pulse Oximetry 96 96 Oxygen Delivery Me thod Room Air Room Air 01/23/23 03:00 01/23/23 08:11 01/23/23 09:59 Temperature 97.8 F 97.6 F Pulse Rate [Pulse Oximeter] 70 72 Respiratory Rate 18 16 Blood Pressure [Le ft Arm] 176/82 H Blood Pressure [Ri ght Arm] Pulse Oximetry 96 96 96 Oxygen Delivery Me thod Room Air Room Air Room Air DS: Data Data Completed and Pending Completed studies during hospitalization: Ordering Physician: Bethel Driscoll M.D. Date of Service: 01/20/23 Procedure(s): XR chest 2V Accession Number(s): [id number] cc: Rai Rosas M.D.; Bethel Driscoll M.D.~ For Patients: As a result of the Cures Act, medical imaging exams and procedure reports are released immediately into your electronic medical record. You may view this report before your referring provider. If you have questions, please contact your health care provider. INDICATION: Cough and fever TECHNIQUE: Chest 2 views. COMPARISON: Chest radiograph February 09, 2022 FINDINGS/IMPRESSION: Mild cardiomegaly. Normal pulmonary vasculature. Clear lungs and pleural spaces. Degenerative changes in the spine. Dictated by Navya Lira MD @ 01/20/2023 2:39:58 AM (Electronically Signed) Ordering Physician: Hanny Herrera M.D. Date of Service: 01/20/23 Procedure(s): CT angio chest PE protocol Accession Number(s): [id number] cc: Hanny Herrera M.D.; Rai Rosas M.D.~ For Patients: As a result of the Cures Act, medical imaging exams and procedure reports are released immediately into your electronic medical record. You may view this report before your referring provider. If you have questions, please contact your health care provider. INDICATION: Chest pain. TECHNIQUE: CT chest PE was acquired with 100 cc Omnipaque 350 IV contrast. COMPARISON: None. FINDINGS: Heart and vasculature: Contrast opacification of the pulmonary arterial tree is adequate. No sign of pulmonary embolism. Moderate severe atherosclerotic coronary calcifications. Left ventricular enlargement. Enlarged caliber of the pulmonary trunk measuring 3.4 cm (47:8). Borderline dilated mid ascending thoracic aorta at 4.1 cm.* *https://pubmed.ncbi.nlm.nih.gov/03572453 Lungs and pleura: No suspicious nodules or infiltrates. No pleural effusions, pleural thickening, or pneumothorax. Lymph nodes/mediastinum: No mediastinal, hilar, or axillary adenopathy. Chest wall: No masses. Upper abdomen: No acute or significant findings. Bones: Unremarkable for age. IMPRESSION: No evidence of pulmonary embolism. Dilated pulmonary trunk. Differential diagnostic considerations include pulmonary hypertension. Moderate atherosclerotic coronary calcifications and left ventricular enlargement. Borderline dilated ascending thoracic aorta. Please note that all CT scans at this facility use dose modulation, iterative reconstruction, and/or weight-based dosing when appropriate to reduce radiation dose to as low as reasonably achievable. Dictated by Yonas Swan MD @ 01/20/2023 10:09:29 AM (Electronically Signed) Ordering Physician: Hanny Herrera M.D. Date of Service: 01/20/23 Procedure(s): CT abdomen pelvis w con Accession Number(s): [id number] cc: Hanny Herrera M.D.; Rai Rosas M.D.~ For Patients: As a result of the 21st Century Cures Act, medical imaging exams and procedure reports are released immediately into your electronic medical record. You may view this report before your referring provider. If you have questions, please contact your health care provider. INDICATION: Fever, weakness. TECHNIQUE: CT abdomen and pelvis acquired with 95 cc Isovue 370 IV contrast. COMPARISON: None. FINDINGS: Lower chest: Unremarkable. Liver: Normal in size. Mild diffuse hepatic steatosis. No focal liver lesion. Gallbladder and bile ducts: Unremarkable. No stones or inflammation. No biliary dilatation. Pancreas: Unremarkable. No mass or inflammation. Spleen: Unremarkable. Normal in size. No masses. Adrenal glands: Unremarkable. No nodules. Kidneys: Unremarkable. No suspicious masses, stones, or hydronephrosis. GI tract: Unremarkable. Normal in caliber. No sign of mass or inflammation. Normal appendix. Vasculature: Abdominal aorta is normal in caliber with atherosclerotic calcifications.. Mesenteric arteries are patent. Lymph nodes: Mildly prominent left external iliac lymph nodes measuring 1 cm in short axis. Additionally, mildly enlarged left inguinal lymph node measuring up to 1.3 cm in short axis. Otherwise unremarkable. Peritoneum/Abdominal Wall: Unremarkable. No sign of mass or infiltration. No free air or significant free fluid. Pelvis: Dystrophic prostate calcifications. Otherwise unremarkable. Bones: Possible nondisplaced fracture involving the right posterior 12th rib. Additional nondisplaced fracture of the left 7th rib. Severe multilevel degenerative disc disease involving the visualized thoracic and lumbar spine with findings of diffuse idiopathic skeletal hyperostosis. IMPRESSION: 1. Nondisplaced left 7th rib fracture with additional possible nondisplaced right posterior 12th rib fracture. Otherwise, no acute abnormality identified in the abdomen or pelvis. 2. Nonspecific mild left inguinal and external iliac lymphadenopathy. Please note that all CT scans at this facility use dose modulation, iterative reconstruction, and/or weight-based dosing when appropriate to reduce radiation dose to as low as reasonably achievable. Dictated by Gretel Ford MD @ 01/20/2023 10:23:42 AM (Electronically Signed) Ordering Physician: Latoya Dowell M.D. Date of Service: 01/21/23 Procedure(s): US venous LE LT Accession Number(s): [id number] cc: Rai Rosas M.D.; Latoya Dowell M.D.~ For Patients: As a result of the Century Cures Act, medical imaging exams and procedure reports are released immediately into your electronic medical record. You may view this report before your referring provider. If you have questions, please contact your health care provider. INDICATION: Leg pain and swelling. TECHNIQUE: Ultrasound venous duplex lower left extremity. Compression venous exam was performed using marinelli-scale, color Doppler, and spectral Doppler analysis. COMPARISON: 04/06/2022. FINDINGS: Deep veins: Sonographic imaging demonstrates the left common femoral, deep femoral, superficial femoral, popliteal, posterior tibial, peroneal and the contralateral right common femoral veins to be fully compressible with normal color Doppler blood flow. Superficial veins: Greater saphenous vein is fully compressible. No popliteal cyst. IMPRESSION: Normal left lower extremity venous ultrasound, no sign of deep venous thrombosis. Dictated by Hubert Jim MD @ 01/22/2023 2:25:29 AM (Electronically Signed) 01/20/2023 EKG: Sinus rhythm with first-degree AV block, 93 beats per minute, otherwise normal EKG. Labs on day of discharge: Labs from last 24 hours 01/23/23 05:55 WBC 7.37 RBC 2.83 L Hgb 9.2 L Hct 26.6 L MCV 94 MCH 33 MCHC 35 RDW Coeff of Eloy 12.5 Plt Count 191 Neut % (Auto) 55.9 Lymph % (Auto) 25.2 [place] % (Auto) 17.8 H Eos % (Auto) 0.5 Baso % (Auto) 0.1 Neut # (Auto) 4.11 Lymph # (Auto) 1.86 [place] # (Auto) 1.30 H Eos # (Auto) 0.04 Baso # (Auto) 0.01 Abs Immat Gran (auto) 0.04 Imm/Tot Granulo (auto) 0.5 Sodium 131 L Potassium 3.4 L Chloride 99 Carbon Dioxide 26 Anion Gap 6 L BUN 13 Creatinine 0.9 Estimated Creat Clear 63.83 Estimated GFR 89 Glucose 105 Calcium 9.0 Magnesium 1.4 L Preliminary micro results at discharge 01/20/23 01:10 Blood Culture - Preliminary Blood NO GROWTH AFTER 72 HOURS 01/20/23 01:05 Blood Culture - Preliminary Blood NO GROWTH AFTER 72 HOURS Discharge Plan Discharge Disposition: Home, Self-Care Date of Admission: 01/20/23 03:56 Attending Provider on Discharge: Latoya Dowell Primary Care Provider: Rai Rosas Condition: Improved Anticipated Discharge Date/Time: 01/23/23 14:35 Discharge Medications: New doxycycline monohydrate 100 mg capsule 100 mg PO BID 7 Days Qty: 14 0RF Continued loratadine [Allerclear] 10 mg tablet 10 mg PO DAILY atorvastatin 40 mg tablet 40 mg PO HS labetalol 200 mg tablet 200 mg PO BID omeprazole 40 mg capsule,delayed release(DR/EC) 40 mg PO DAILY montelukast 10 mg tablet 10 mg PO HS losartan 100 mg tablet 100 mg PO HS albuterol sulfate 90 mcg/actuation HFA aerosol inhaler 2 inh INHALATION Q4H PRN Patient Comments: triamcinolone acetonide 0.1 % Ointment 1 applic topical BID Qty: 30 0RF apixaban 5 mg (74 tabs) tablets,dose pack 5 mg PO BID Qty: 74 0RF terbinafine HCl 250 mg tablet 250 mg PO DAILY Qty: 14 0RF Discharge Orders: Discharge Order (Routine); Ordered 01/23/23 Ordered By: Latoya Dowell Patient Education: Cellulitis (ED) Additional Instructions: Continue outpatient PT. Whether or not to extend this can be decided when you see Dr. Rosas next. Follow-up with Dr. Rosas later this week or early next. Elevate legs at least 12 hours out of every 24. Activity Level: Activity as Tolerated, Use Cane and Use Walker Discharge Diet: Regular Follow Up Appointments: Rai Rosas MD [Primary Care Provider] - (5-7 days) Forms: [employer] - Payments Anytime | Anywhere Info Instructions"
--- NOTE | 2023-01-23 16:09 | PC.NURSE ---
Discharge note-Jeferson discharged @ 1602 with his home. All discharge instructions were reviewed and signed.
--- NOTE | 2023-01-26 14:41 | ED_ITS ---
HPI - General Adult General Date Seen: 01/20/23 Chief complaint: Cough Stated complaint: nausea,chills,diarrhea Time Seen by Provider: 01/20/23 00:38 History of Present Illness HPI narrative: 77 year old male brought in by his with concerns of fevers and chills as well as nausea without vomiting. He felt well until he had an ear lavage two days ago then started feeling poorly. He is staying hydrated. He has a cough. He has some redness of his left leg that is rapidly expanding. He denies pain in the leg. He has a previous history of DVT in that leg but is no longer anticoagulated. No chest pains or shortness of breath. His cough is nonproductive. Related Data Home Medications Medication Instructions Recorded Confirmed albuterol sulfate 90 mcg/actuation 2 inh inhalation Q4H PRN 04/06/22 01/20/23 aerosol inhaler atorvastatin 40 mg tablet 40 mg PO HS 04/06/22 01/20/23 labetalol 200 mg tablet 200 mg PO BID 04/06/22 01/20/23 losartan 100 mg tablet 100 mg PO HS 04/06/22 01/20/23 montelukast 10 mg tablet 10 mg PO HS 04/06/22 01/20/23 omeprazole 40 mg capsule,delayed 40 mg PO DAILY 04/06/22 01/20/23 release loratadine 10 mg tablet 10 mg PO DAILY 01/20/23 01/20/23 (Allerclear) Previous Rx's Medication Instructions Recorded apixaban 5 mg (74 tabs) tablets in 5 mg PO BID #74 ea 04/08/22 a dose pack terbinafine HCl 250 mg tablet 250 mg PO DAILY #14 tabs 04/08/22 triamcinolone acetonide 0.1 % 1 applic topical BID #30 grams 04/08/22 topical ointment doxycycline monohydrate 100 mg 100 mg PO BID 7 days #14 caps 01/23/23 capsule Allergies Allergy/AdvReac Type Severity Reaction Status Date / Time sulfamethoxazole Allergy Mild Rash Verified 01/20/23 09:17 [From Bactrim] trimethoprim [From Bactrim] Allergy Mild Rash Verified 01/20/23 09:17 Review of Systems Narrative: Review of systems is as outlined above otherwise noted to be negative. PFSH PFSH Medical History Tinea pedis ?B35.3 - Tinea pedis (ICD-10) DVT (deep venous thrombosis) ?I82.409 - Acute embolism and thrombosis of unspecified deep veins of unspecified lower extremity (ICD-10) Anemia ?D64.9 - Anemia, unspecified (ICD-10) Hyponatremia ?E87.1 - Hypo-osmolality and hyponatremia (ICD-10) Fever ?R50.9 - Fever, unspecified (ICD-10) Adverse drug reaction ?T50.905A - Adverse effect of unspecified drugs, medicaments and biological substances, initial encounter (ICD-10) Difficult intubation ?T88.4XXA - Failed or difficult intubation, initial encounter (ICD-10) MRSA cellulitis ?L03.90 - Cellulitis, unspecified (ICD-10) ?B95.62 - Methicillin resistant Staphylococcus aureus infection as the cause of diseases classified elsewhere (ICD-10) 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 (ICD-10) Chronic cough ?R05.3 - Chronic cough (ICD-10) Erectile dysfunction ?N52.9 - Male erectile dysfunction, unspecified (ICD-10) Hyperlipidemia ?E78.5 - Hyperlipidemia, unspecified (ICD-10) Benign neoplasm of colon ?D12.6 - Benign neoplasm of colon, unspecified (ICD-10) Impaired fasting glucose ?R73.01 - Impaired fasting glucose (ICD-10) Ingrowing toenail ?L60.0 - Ingrowing nail (ICD-10) AMANDA (obstructive sleep apnea) ?G47.33 - Obstructive sleep apnea (adult) (pediatric) (ICD-10) Spinal stenosis of cervical region ?M48.02 - Spinal stenosis, cervical region (ICD-10) Tobacco use disorder ?F17.200 - Nicotine dependence, unspecified, uncomplicated (ICD-10) James's esophagus ?K22.70 - James's esophagus without dysplasia (ICD-10) Esophageal reflux ?K21.9 - Gastro-esophageal reflux disease without esophagitis (ICD-10) Essential hypertension ?I10 - Essential (primary) hypertension (ICD-10) Obesity ?E66.9 - Obesity, unspecified (ICD-10) Daily consumption of alcohol ?Z78.9 - Other specified health status (ICD-10) Surgical History H/O vasectomy ?Z98.52 - Vasectomy status (ICD-10) S/P tonsillectomy ?Z90.89 - Acquired absence of other organs (ICD-10) H/O arthroscopy of shoulder ?Z98.890 - Other specified postprocedural states (ICD-10) S/P trigger finger release ?Z98.890 - Other specified postprocedural states (ICD-10) S/P laminectomy ?Z98.890 - Other specified postprocedural states (ICD-10) Hx of cataract extraction ?Z98.49 - Cataract extraction status, unspecified eye (ICD-10) S/P total knee arthroplasty ?Z96.659 - Presence of unspecified artificial knee joint (ICD-10) Social History (Updated 04/06/22 @ 19:38 by Latoya Dowell MD) Narrative: to Judy. Smokes 10 cig/day. Drinks 3-5 regular sized beers and 1-2 glasses of wine each day. Denies recreational drug use. FULL CODE. What is your current living situation?: I presently have a place to live Problems where you live: no known problems Problems where you live details: n/a In the past 12 months, utilities in danger of being shut off: no In past 12 months, lack of transportation kept you from medical appts, meetings, work, or getting things needed for daily living: no In the past 12 mos, have been you worried that your food would run out before you had money to buy more?: never true In the past 12 mos, the food you bought just didn't last and you didn't have money to buy more?: never true Highest level of school completed/degree received: Master's degree Smoking Status: Current every day smoker What tobacco products do you use: cigarettes Years smoked: 50 Do you use any of these nicotine containing products: None Second hand tobacco smoke exposure: Yes How often do you have a drink containing alcohol: 4 or more times a week Alcohol type: beer How many standard drinks containing alcohol do you have on a typical day: 5 or 6 How often do you have six or more drinks on one occasion: Daily or almost daily AUDIT-C Alcohol total score: 10 Non-prescribed substance use: denies use Caffeine: Yes (1.5 cup coffee daily) How often does anyone, including family, friends and others, physically hurt you : never How often does anyone, including family, friends and others, insult or talk down to you: never How often does anyone, including family, friends and others, threaten you with harm: never How often does anyone, including family, friends and others, scream or curse at you: never service: No Exam Narrative: Exam Narrative: Vitals noted. HEENT: Conjunctiva clear. Tympanic membranes are pearly white bilaterally. Posterior pharynx is clear without erythema or exudate. Neck is supple without adenopathy, thyromegaly, carotid bruit. Lungs: Clear to auscultation in all bhatt. No wheezes, rales, rhonchi. Heart: Regular rate and rhythm without murmur. Abdomen: Soft and nontender. No guarding, rigidity, rebound. Bowel sounds are normal. No palpable masses. Extremities: No cyanosis or edema. Good distal pulses. Skin: He has a cellulitis of his left lower extremity that extends from the ankle almost up to the knee. No open areas. Neurologic: Awake, alert, fully oriented. Neurologic exam is nonfocal. Course Course ED Course: Patient was seen and examined. Labs and chest x-ray are ordered. IV is established and he is getting some IV fluids. Reevaluation(s) Reevaluation #1: Labs have returned showing mildly elevated creatinine, slightly low hemoglobin, but otherwise unremarkable. Chest x-ray is unremarkable. Swabs for influenza and COVID are negative. He is given Rocephin 1g IV. Reevaluation #2: I spoke with our hospitalist and have decided to admit him for further treatment of his cellulitis. Vital Signs Vital signs: Initial Vital Signs Temperature 100.9 F H 01/20/23 00:30 Temperature Source Temporal Artery Scan 01/20/23 00:30 Pulse Rate 103 H 01/20/23 00:30 Respiratory Rate 18 01/20/23 00:30 Blood Pressure 113/74 01/20/23 00:30 Blood Pressure Mean 87 01/20/23 00:30 Blood Pressure Position Sitting 01/20/23 00:30 Pulse Oximetry 98 01/20/23 00:30 Oxygen Delivery Method Room Air 01/20/23 00:30 Vital Signs Temperature 100.9 F H 01/20/23 00:30 Pulse Rate 103 H 01/20/23 00:30 Respiratory Rate 18 01/20/23 00:30 Blood Pressure 113/74 01/20/23 00:30 Pulse Oximetry 98 01/20/23 00:30 Oxygen Delivery Method Room Air 01/20/23 00:30 Temperature 97.6 F 01/23/23 08:11 Pulse Rate 72 01/23/23 08:11 Respiratory Rate 16 01/23/23 08:11 Blood Pressure 176/82 H 01/23/23 08:11 Pulse Oximetry 96 01/23/23 09:59 Oxygen Delivery Method Room Air 01/23/23 09:59 Medical Decision Making Lab Data Labs: Lab Results 01/20/23 01/20/23 Range/Units 00:50 01:05 WBC 8.50 (4.50-11.00) K/uL RBC 3.48 L (4.30-5.90) m/uL Hgb 11.3 L (13.5-17.5) gm/dL Hct 33.0 L (37.0-53.0) % MCV 95 (80-100) fL MCH 33 (26-34) pg MCHC 34 (32-36) gm/dL RDW Coeff of Eloy 12.7 (11.5-15.5) % Plt Count 186 (140-440) K/uL Neut % (Auto) 86.2 H (42.0-72.0) % Lymph % (Auto) 5.6 L (20-44) % [place] % (Auto) 7.6 (0.0-11.0) % Eos % (Auto) 0.0 (0.0-7.0) % Baso % (Auto) 0.1 (0.0-3.0) % Neut # (Auto) 7.30 H (1.7-7.0) K/uL Lymph # (Auto) 0.50 L (0.90-2.90) K/uL [place] # (Auto) 0.60 (0.00-0.90) K/UL Eos # (Auto) 0.00 (0.00-0.50) K/uL Baso # (Auto) 0.01 (0.00-0.30) K/uL Abs Immat Gran (auto) 0.04 (0.00-0.30) K/uL Imm/Tot Granulo (auto) 0.5 % Sodium 126 L (135-149) mmol/L Potassium 4.1 (3.6-5.1) mmol/L Chloride 92 L (96-114) mmol/L Carbon Dioxide 23 (20-32) mmol/L Anion Gap 11 (7-15) mEq/L BUN 28 (7-30) mg/dL Creatinine 1.6 H (0.5-1.5) mg/dL Estimated Creat Clear 39.89 Estimated GFR 45 ml/min Glucose 106 (60-115) mg/dL Lactate 1.6 (0.5-1.9) mmol/L Calcium 9.1 (8.4-10.6) mg/dL Total Bilirubin 0.8 (0.1-1.5) mg/dL Direct Bilirubin 0.1 (0.0-0.5) mg/dL AST 52 H (12-35) U/L ALT 33 (4-50) U/L Alkaline Phosphatase 84 (40-150) U/L Total Protein 7.8 (6.0-8.3) g/dL Albumin 4.4 (3.3-5.0) g/dL SARS-CoV-2 (PCR) Negative SARS-CoV-2 (Negative) Influenza Type A (PCR) Negative PCR FLU A (Negative) Influenza Type B (PCR) Negative PCR FLU B (Negative) Discharge Plan Discharge Condition: Improved Activity Level: Activity as Tolerated, Use Cane and Use Walker Discharge Diet: Regular
== END 2023-01-23 16:02 | disposition home or self-care (01) | DRG 872 ==
LOC: ED 00:57 → MEDSURG 03:57
PROVIDERS: Family Medicine; Admitting Provider Internal Medicine; Emergency Provider Family Medicine; PCP Family Medicine; Visit Provider Internal Medicine
DX: A41.9 Sepsis, unspecified organism (principal); L03.116 Cellulitis of left lower limb; N17.9 Acute kidney failure, unspecified; E87.1 Hypo-osmolality and hyponatremia; G47.33 Obstructive sleep apnea (adult) (pediatric); I10 Essential (primary) hypertension; E66.9 Obesity, unspecified; F17.210 Nicotine dependence, cigarettes, uncomplicated; K21.9 Gastro-esophageal reflux disease without esophagitis; D64.9 Anemia, unspecified; Z86.718 Personal history of other venous thrombosis and embolism; Z86.14 Personal history of Methicillin resistant Staphylococcus aureus infection; F10.90 Alcohol use, unspecified, uncomplicated; Z68.33 Body mass index [BMI] 33.0-33.9, adult
CPT/HCPCS: 36415; 71046; 71275; 74177; 80048; 80069; 80076; 81003; 81015; 82803; 83605; 83735; 84145; 84484; 85025; 86140; 87040; 87086; 87493; 87631; 93005; 93971; 94761; 97116; 97161; 97165; 97530; 97535; 99283; A9270; J0696; J1650; J1940; J2405; J3370; J7030; J7050; J7120; Q9967

== ENCOUNTER 2023-03-29 13:45 | Outpatient (RCR) | payer MEDICARE, OTHER, SELFPAY ==
--- NOTE | 2023-02-21 12:23 | PT.OPDNX ---
PT [facility] Daily Note PT [facility] Outpatient Daily Note Start: 11/23/22 15:15 Freq: Status: Active Protocol: Document 02/21/23 07:16 YURIY (Rec: 02/21/23 07:20 YURIY [id number]) E-signed By Miranda Pablo, PT PT OP Daily Progress Note Visit Information Note Type Daily Note,Recert/Progress Note Visit Number [id number] Insurance Authorized Visits - Insurance Information Recert Due Date 02/21/23 Insurance Name [email or web address],Medicare B Medical Diagnosis Unstable gait; bilateral hip pain Treating Diagnosis B hip pain, significant B LE weakness, deconditioning, imbalance, and gait dysfunction Subjective Subjective Feeling pretty good. Golfing again after PT session today, so that will be a challenge as I will be a bit tired already . Home ex are going fine. No questions. No falls, but then I am much more careful walking than I used to be. Use my cane outside, jean on uneven surfaces. Pain Comments 0-6/10 B hips Preferred Name Jeferson Precautions Treatment Precautions/Contraindications High levels of deconditioning Objective Other/Pertinent Objective Hip PROM Flex: B 105 deg Ext: B 3 deg ER: B 30 deg IR: B 20 deg Strength Hip flex: B 4/5 Knee ext: B 4+/5 Knee flex: B 4/5 Hip ABD: R 4-/5, L 3/5 Hip ext: R 4/5, L 4-/5 Abdominal: 3/5 Gait and Balance Gait: with SPC decreased velocity, decreased B stride length and increased B stride width. SLS: B 2 sec excessive sway Posture Increased LEILANI in standing Neuro/Tone/Sensation/Reflexes Sensation: light touch present B LE Other Objective Measures HS 90-90: B lacking 30 deg Functional Test Performed & Score TUG with SPC: 17.1 sec Patient Instructed in Risks/Benefits Yes Therapeutic Exercise Therapeutic Exercise Minutes (minutes) 28 Therapeutic Exercise: To Restore NuStep X 6 MIN at level 3 Functional Status TRUNK EXT X 15 50# POSITION 3 STDG CC ROW X 15 HOLD 2 17.5 KG STDG CC LPD X 15 HOLD 2 17.5 KG SEATED KNEE EXT B X 15 3P ( EMPHASIZE ECC) STDG HIP ABD R/L X 15 2P STDG HIP EXT R/L X 15 2P STDG UPPER TRUNK ROTATION WITH WEIGHTED BALL (8#) CLOSE TO BODY X 10 forward gait NBOS emphasis on heel strike and toe push off ( feet approx 2 apart) and head raised 20 feet X 2 reps Treatment Minutes Timed Code Treatment Minutes 28 Total Treatment Time 28 Billing Units Therapeutic Exercise Units 2 Assessment/Impression Assessment/Impression Client was able to perform all above noted tasks at a smooth and moderate pace. Good breathing and alignment. He only took one short 2 min rest at about 18 minutes into the 30 min session. He is very conscious of his forward head, attempts to stand tall as able. No additional home ex given. He cont to benefit from PT interventions for functional strength and endurance progressions. Plan of Care Physical Therapy Goals Short-term goals to be completed in 4 weeks. 1. Pt will be able to amb >500 feet with a SPC to safely get his mail and attend medical appointments. 2. Pt will report improved quality of sleep waking <2x per night for >3 consecutive days due to B hip pain. Long-term goals to be completed in 12 weeks 1.Pt will be independent and compliant with HEP 2.Pt will display improved B hip flex, ABD and ext strength >4/5 to improve quality of gait 3.Pt will be able to walk >5 min without an AD to improve cardiovascular health and walk his dogs. 4.Pt will display improved TUG testing <11 seconds without a SPC to decrease falls risk Daily Plan of Care Continue per POC Daily Plan of Care Comments Progress B LE strength, endurance and balance, as able . Recertification Information Initial Certification Date 11/23/22 Recertification Start Date 02/21/23 Recertification Due Date 05/18/23 Reasons to Continue Skilled Therapy Client cont to exhibit strength and endurance deficit , functional strength loss, postural deficit and reduced balance skills placing him at a risk for falling. He is very compliant with HEP and eager to progress. Timed Up and go TUG test initially 17.1 seconds improved to 13 seconds (goal is 10 seconds or less) Rehabilitation Potential Good Continued Plan of Care and Interventions 2X/Wk for 8 more visits Provider Signature Shows Agreement With POC & Medical Necessity Physician Comment/Change Comment or Changes Physician NPI Number #
== END 2023-04-13 12:13 | disposition home or self-care (01) ==
PROVIDERS: PCP Family Medicine; Visit Provider Family Medicine
DX: M25.551 Pain in right hip (principal); M25.552 Pain in left hip; R26.81 Unsteadiness on feet; R26.9 Unspecified abnormalities of gait and mobility; R53.1 Weakness; Z51.89 Encounter for other specified aftercare
CPT/HCPCS: 97110; 97112; 97140; 97162; 97530

== ENCOUNTER 2023-08-01 10:00 | Outpatient (RCR) | payer MEDICARE, OTHER, SELFPAY | END 2023-11-29 23:59 | disposition home or self-care (01) | PROVIDERS: PCP Family Medicine; Visit Provider Physician Assistant | DX: H69.90 Unspecified Eustachian tube disorder, unspecified ear (principal); Z74.09 Other reduced mobility; Z98.890 Other specified postprocedural states; Z51.89 Encounter for other specified aftercare | CPT/HCPCS: 97110; 97140; 97162 ==

== ENCOUNTER 2024-08-07 13:00 | Outpatient (RCR) | payer MEDICARE, OTHER, SELFPAY ==
--- NOTE | 2024-04-01 12:20 | PT.OPEX ---
PT [facility] Outpatient Eval PT [facility] Outpatient Eval Start: 03/29/24 12:59 Freq: Status: Active Protocol: Document 03/29/24 14:30 GARTH (Rec: 03/29/24 16:22 GARTH [id number]) E-signed By Nanci Girard PT Physical Therapy Outpatient Evaluation Insurance Information Recert Due Date 06/26/24 Insurance Name Medicare B Medical Diagnosis HIP PAIN Treating Diagnosis WEAKNESS Referring MD PAMELLA WATSON Subjective Preferred Name FRANCES Subjective PATIENT REPORTS FOLLOWING UP WITH HIS PHYSICIAN FOR A WELL VISIT AND REPORTING TO HIM THAT HE FEELS WEAK AND THAT HE EXPERIENCES HIP AND THIGH PAIN AFTER WALKING FOR A SHORT DISTANCE. HE HAS HAD PERIODS OF DECONDITIONING, PAIN, AND A MYRIAD OF MEDICAL CHALLENGES OVER THE PAST SEVERAL YEARS LIMITING HIS CONSISTENT PARTICIPATION IN COMMUNITY WALKING, PEER CENTERED ACTIVITIES, AND OVERALL LIFE . HE DENIES ANY FALLS OR FEELING UNSTEADY BUT SIMPLY, I JUST FEEL WEAK IN MY LEGS. HE REPORTS PERFORMING A SELECT FEW EXERCISES FROM HIS PAST PHYSICAL THERAPY EXPERIENCE FOR HIS NECK, BACK, AND BLE STATING FOR HIS, I STAND AND GET UP ON MY TOES FOR A SET AND THEN DO THE SQUAT THINGS FOR A SET. I USED TO DO THE SWING OUT TO THE SIDE (HIP ABD ) BUT THIS CAUSED MY HIP TO HURT SO I STOPPED. HIS PHYSICIAN FELT ANOTHER BUT OF PHYSICAL THERAPY WOULD ASSIST WITH A CONTIGENCY PLAN TO FURTHER INVESTIGATE ANY VASCULAR REASONS FOR HIS PAIN WITH 2-3 MIN OF AMB. 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 Precautions Treatment Precautions/Contraindications PMHX: HTN, OSTEOPOROSIS, B TKA , H/O CERVICAL SPINAL STENOSIS W/MULTIPLE CERVICAL SURGIES( LAMINECTOMIES AND MRSA INFECTION) C3-7, B HIP OA, H/O DVT, ANEMIA, HYPONATREMIA, TREMOR, H/O RARE FUNGAL INFECTION LEFT FOOT, SOPD W/ CHRONIC COUGH Therapy Limitations/Systems Review Hearing Objective Other/Pertinent Objective BLE WEAKNESS GREATS AT GLUTS, HAMSTRINGS, PARASPINALS PROFOUNDLY STIFF ABOUT THE LUMBAR/HIP WITH DIFFICULTY CROSSING LEGS AT ANKLES LUMBAR FLEX: -75% LUMBAR EXT:-75% RIGHT SB: -50% LEFT SB -50% R/L ROTATION NEGLIGIBLE POOR ENDURANCE NOTING SOB WITH <100FT POSTURING: MOD TO SEVERE FWD POSTURING, MOD THORACIC KYPHOSIS, ANTERIOR PELVIC TILT , SLIGHT FLEX IN B KNEES Functional Test Performed & Score [id number] TU.1 SAENZ Assessment Assessment/Impression 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 WATSON TO EVAL AND TREAT CHRONIC PAIN, BILATERAL HIP AND QUAD PAIN. PATIENT DEMONSTRATES SIGNS AND SYMPTOMS CONSISTENT WITH BILATERAL HIP OA, WEAKNESS. AND DECONDITIONING CONTRIBUTING TO THEIR FUNCTIONAL IMPAIRMENTS OF DIFFICULTY AMB SHORT DISTANCE, AMB ON UNEVEN SURFACES, ENDURANCE, STAIR CLIMBING, AND UNSTEADINESS WHEN WALKING W/O AN AD. PATIENT HAS NOTABLE OBJECTIVE FINDING INCLUDING WEAKNESS BILATERAL GLUTE, IMPAIRED B SLS, AND BOTH SAENZ AND TUG SCORE WHICH ALL ARE CONTRIBUTING TO THE CLINICAL IMPRESSION. PATIENT IS A GOOD CANDIDATE FOR SKILLED PHYSICAL THERAPY TO ADDRESS AFOREMENTIONED DEFICITS ABOVE IN ORDER TO RETURN TO COMMUNITY AMB W/AD, SAFE AND CONSISTENT STAIR AMB, NAVIGATE COMMUNITY OBSTACLES, AND PARTICIPATE IN PEER CENTERED ACTIVITIES. INTERVENTION IS NECESSARY BY WAY OF THERAPEUTIC EXERCISES, NEUROMUSCULAR EDUCATION, AND CORE AND BLE STRENGTHENING/ STABILIZATION/STRETCHING, AND PROPRIOCEPTION. PLEASE REFER TO APPROPRIATE SECTION WITHIN THIS EVALUATION FOR COMPLETE LIST OF GOALS AND PLAN OF CARE . DISCHARGE PLAN AND CRITERIA IS FOR PATIENT TO ACHIEVE THE GOALS LISTED BELOW OR UNTIL MAX POTENTIAL MET. PATIENT VERBALIZED UNDERSTANDING AND AGREEABLE TO POC, FREQ, AND GOALS ESTABLISHED. Primary Functional Limitations COMMUNITY AMB STAIRS BALANCE Plan of Care Rehabilitation Potential Good Physical Therapy Goals 1. DECREASE R/L HIP/THIGH PAIN TO </3/10 WITH DAILY ACTIVITIES AND WITH THE PROGRESSION OF PHYSICAL THERAPY PROGRAM OVER THE NEXT 3-4 WEEKS 2. IMPROVE B HIP ROM TO WFL OVER THE NEXT 4-6 WEEKS FOR IMPROVED GAIT MECHANICS, RETURN TO TRANSFERS W/O ASSISTANCE AND WITH EASE, AND RETURN TO ASCENDING/DESCENDING STAIRS WITH RECIPROCAL GAIT 3. IMPROVE CORE/LE COMPLEX STRENGTH OVER THE NEXT 6-8 WEEKS FOR RETURN TO TRANSFERS WITH EASE, NORMAL GAIT WITHOUT AD, AND STANDING/WALKING > 15MIN WITHOUT A FLARE UP OF PAIN 4. PATIENT WILL BE INDEPENDENT WITH HIS HEP WITHIN 8-12 WEEKS FOR PROGRESSION TOWARD ABOVE GOALS, ONGOING IMPROVEMENT OF PAIN/SYMPTOMS, ROM, STRENGTH, AND MOBILITY TO RETURN TO DAILY ACTIVITIES AND FAMILY CENTERED ACTIVITIES W/O FLARE UP OF PAIN/SYMPTOMS Coordination/Communication With Referral Source Treatment Plan/Direct Interventions Gait Training,Manual Therapy, Neuromuscular Re-ed,Self-Care/ Home Management,Therapeutic Activities,Therapeutic Exercises Frequency/Duration 1X/WK Patient Will Be Discharged From Therapy Completion of LTG(s), Independently Progressing Evaluation Billing Untimed Code Treatment Minutes 25 Complexity Moderate Certification Information Initial Certification Date 03/29/24 Ending Certification Date 06/26/24 Provider Signature Required Yes Provider Signature Shows Agreement With POC & Medical Necessity Physician NPI Number Write NPI# Here Physician Comment/Change : Physician Signature & Date Requested Please Sign/Date Here
== END 2024-10-02 10:45 | disposition home or self-care (01) ==
PROVIDERS: PCP Family Medicine; Visit Provider Family Medicine
DX: R53.1 Weakness (principal); Z51.89 Encounter for other specified aftercare
CPT/HCPCS: 97110; 97162